=== PATIENT | female | born 2000 | race Caucasian/White ===

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

== ENCOUNTER 2021-02-03 20:50 | Outpatient (CLI) | payer OTHER ==
[2021-02-03] MEDS ORDERED: MAGNESIUM HYDROXIDE 2,400 MG/10 ML CUP PO PRN (21:03)
[2021-02-03] MEDS ORDERED: LACTATED RINGERS 1,000 ML IV ONE (21:15)
[2021-02-03 21:21] LABS: Basophils % (A) 0 %; Eosinophils # (A) 0.2 k/uL (0-0.7); Eosinophils % (A) 1 %; HGB 13.7 gm/dL (11.4-16.0); Lymphocytes # (A) 2.1 k/uL (1.0-4.8); Lymphocytes % (A) 13 %; MCH 29.5 pg (25.0-35.0); MCHC 36.2 g/dL (31.0-37.0); MCV 81.5 fL (80.0-100.0); Mean Platelet Volume 7.7; Monocytes # (A) 0.5 k/uL (0-1.0); Monocytes % (A) 3 %; Neutrophils # (A) 13.5 k/uL (1.3-7.7); Neutrophils % (A) 82 %; Platelet Count 297 k/uL (150-450); RBC 4.66 m/uL (3.80-5.40); RDW 13.4 % (11.5-15.5); WBC 16.4 k/uL (4.0-11.0)
[2021-02-03 21:32] LABS: ALT 13 U/L (4-34); AST 17 U/L (14-36); African American GFR (CKD) >90 (>60 ml/min/1.73 sqM); Anion Gap 13 mmol/L; Blood Urea Nitrogen 5 mg/dL (7-17); Carbon Dioxide 21 mmol/L (22-30); Chloride 101 mmol/L (98-107); Lipase 16 U/L (23-300); Non-African American GFR(CKD) >90 (>60 ml/min/1.73 sqM); Potassium 3.6 mmol/L (3.5-5.1); Sodium 135 mmol/L (137-145)
[2021-02-03 21:32] LABS: Appearance,Urine Cloudy (Clear); Bilirubin,Urine Negative (Negative); Blood,Urine Negative (Negative); Color,Urine Yellow; Glucose,Urine (UA) Negative (Negative); Ketones,Urine 3+ (Negative); Leukocyte Esterase,Urine Moderate (Negative); Mucus,Urine Moderate /hpf; Nitrite,Urine Negative (Negative); PH, Urine 6.5 (5.0-8.0); Protein,Urine Trace (Negative); RBC,Urine 2 /hpf (0-5); Specific Gravity,Urine 1.012 (1.001-1.035); Squamous Epithelial Cell,Urine 13 /hpf (0-4); Urobilinogen,Urine <2.0 mg/dL (<2.0); WBC,Urine 7 /hpf (0-5)
[2021-02-03 21:39] LABS: Amphetamine Screen,Urine Not Detected (NotDetected); Barbiturate Screen,Urine Not Detected (NotDetected); Benzodiazepines Screen,Urine Not Detected (NotDetected); Cocaine Screen,Urine Not Detected (NotDetected); Methadone Screen, Urine Not Detected (NotDetected); Opiate Screen,Urine Not Detected (NotDetected); Oxycodone Screen, Urine Not Detected (NotDetected); Phencyclidine Screen,Urine Not Detected (NotDetected); Tricyclic Antidepressant,Urine Not Detected (NotDetected); Urn Cannabinoid Scrn Detected (NotDetected)
[2021-02-03 22:14] VITALS: BP 116/58; PULSE 72; RESP 16; TEMP 98
--- NOTE | 2021-02-04 04:57 | P.MSEPDOC ---
Presenting Problems - Arrival Data Date of Arrival on Unit: 02/03/21 Time of Arrival on Unit: 20:50 Mode of Transport: Ambulatory - Complaint OB-Reason for Admission/Chief Complaint: Hyperemesis Medical History - Information : 1 Para: 0 Term: 0 : 0 Abortions: Spontaneous or Elective: 0 Number of Living Children: 0 - Gestational Age Gestational Age by NICOLE (wks/days): 14 Weeks and 1 Days - History Complications: Hx. Substance Abuse Comment: Daily THC use. Review of Systems - Review of Systems Constitutional: No problems Breast: No problems ENT: No problems Cardiovascular: No problems Respiratory: No problems Gastrointestinal: No problems Genitourinary: No problems Musculoskeletal: No problems Neurological: No problems Skin: No problems Vital Signs - Temperature Temperature: 98 F Temperature Source: Oral - Pulse Right Brachial Pulse Rate: 72 Pulse Assessment Method: Automatic Cuff - Respirations Respiratory Rate: 16 Oxygen Delivery Method: Room Air O2 Sat by Pulse Oximetry: 100 - Blood Pressure Right Arm Blood Pressure: 116/58 Blood Pressure Mean: 77 Blood Pressure Source: Automatic Cuff Medical Screen Scoring (Pre) - Cervical Exam Dilation: Exam Deferred Effacement: Exam Deferred Membranes: Intact - Uterine Contractions Frequency: N/A Duration: N/A Intensity: N/A - Maternal Vital Signs Maternal Temperature: N/A Maternal Blood Pressure: N/A Signs of Preeclampsia: N/A Maternal Respirations: N/A - Maternal Trauma Maternal Trauma: N/A - Assessment - Baby A Baseline FHR: 155 Heart Rate - NICHD Category: Category I (Normal) = 0 NST: Reactive Position: N/A Station: N/A - Total Score - Baby A Total Score - Baby A: 0 - Total Score - Baby B Total Score - Baby B: 0 - Total Score - Baby C Total Score - Baby C: 0 - Level of Risk - Baby A Level of Risk - Baby A: Low (0-5) - Level of Risk - Baby B Level of Risk - Baby B: Low (0-5) - Level of Risk - Baby C Level of Risk - Baby C: Low (0-5) Physician Notification (Pre) - Physician Notified Physician Notified Date: 02/03/21 Physician Notified Time: 21:57 New Order Received: Yes - Notification Comment Comment: Dr. Wray called and given pt lab results. Orders recieved to d/c pt to home. To educate pt to increase fluid intake and try pedialyte. Pt has apt next week with Dr. Wray. Disposition - Disposition OB Disposition: Discharge to home Discharge Date: 02/03/21 Discharge Time: 22:10 I agree with the RN Medical Screening Exam: Yes Case reviewed; plan agreed upon as documented in EMR&OBIX.: Yes Diagnosis: DEHYDRATION
== END 2021-02-03 22:10 | disposition home or self-care (01) ==
LOC: FBPOP 20:50
PROVIDERS: ATTEND Obstetrics & Gynecology
DX: O99.282 Endocrine, nutritional and metabolic diseases complicating pregnancy, second trimester (principal); E86.0 Dehydration; Z3A.14 14 weeks gestation of pregnancy
CPT/HCPCS: 80051; 82565; 83690; 84450; 84460; 84520; 85025; 81001; 80306; G0463; 96360; 99214

== ENCOUNTER → 2021-05-15 | Outpatient (CLI) | payer OTHER ==
[~2021-05-15] MED LIST changes: -DEXAMETHASONE SOD PHOSPHATE 10 MG/ML 1 ML VIAL IV ONE; -HEPARIN SODIUM,PORCINE 5,000 UNIT/ML 1 ML VIAL SQ ONE; -LIDOCAINE 1% 20 ML VIAL (10MG/ML) FOR IV START INTRADERMA PRN; -MIDAZOLAM 2 MG/2 ML VIAL IV PRN; -ONDANSETRON 4 MG/2 ML VIAL IVP ONE; +ONDANSETRON 4 MG/2 ML VIAL IVP STA; -fentaNYL (PF) 50 MCG/ML 2 ML AMP IV PRN
[2021-05-15 23:12] VITALS: BP 129/64; PULSE 75; RESP 16; TEMP 96.4
--- NOTE | 2021-05-16 06:45 | P.MSEPDOC ---
Presenting Problems - Arrival Data Date of Arrival on Unit: 05/15/21 Time of Arrival on Unit: 18:55 Mode of Transport: Ambulatory - Complaint OB-Reason for Admission/Chief Complaint: Hyperemesis Comment: Patient states she has a history of hyperemesis and has been prescribed zofran. and reglan by Dr. Wray to help combat it. Patient has been unable to tolerate food and beverages for the past three days. Medical History - Information : 1 Para: 0 Term: 0 : 0 Abortions: Spontaneous or Elective: 0 Number of Living Children: 0 - Gestational Age Gestational Age by NICOLE (wks/days): 28 Weeks and 4 Days Review of Systems - Review of Systems Constitutional: No problems Breast: No problems ENT: No problems Cardiovascular: No problems Respiratory: No problems Gastrointestinal: No problems Genitourinary: No problems Musculoskeletal: No problems Neurological: No problems Skin: No problems Vital Signs - Temperature Temperature: 96.4 F Temperature Source: Temporal Artery Scan - Pulse Right Brachial Pulse Rate: 75 Pulse Assessment Method: Automatic Cuff - Respirations Respiratory Rate: 16 Oxygen Delivery Method: Room Air O2 Sat by Pulse Oximetry: 98 - Blood Pressure Right Arm Blood Pressure: 129/64 Blood Pressure Mean: 85 Blood Pressure Source: Automatic Cuff Medical Screen Scoring - Assessment - Baby A Baseline FHR: 150 Heart Rate - NICHD Category: Category I (Normal) Physician Notification - Physician Notified Physician Notified Date: 05/15/21 Physician Notified Time: 19:35 Physician: Aguilar St - Notification Comment Comment: RN spoke with Dr. St. RN reported that patient had been unable to keep. food or beverage down for three days. Dr. St would like a liter bolus of LR and adose of IV given to patient. If patient tolerates and is feeling better, she may be discharged. Patient updated. Maternal Triage Index - Maternal Triage Index Presenting for scheduled procedure w/no complaint: No - Stat/Priority 1 Stat Priority 1: No - Urgent/Priority 2 Urgent Priority 2: No - Prompt/Priority 3 Prompt Priority 3: No - Non-Urgent/Priority 4 Non-Urgent Priority 4: Yes Criteria Met for Priority 4: Nausea and vomiting x3 days Disposition - Disposition OB Disposition: Discharge to home Discharge Date: 05/15/21 Discharge Time: 20:40 I agree with the RN Medical Screening Exam: Yes Case reviewed; plan agreed upon as documented in EMR&OBIX.: Yes Diagnosis: LATE VOMITING OF (Patient presents to labor and delivery with complaints of persistent nausea and vomiting. Patient's had this apparently on off throughout the and does come to labor and delivery occasionally for IV hydration and anti-medics. Patient is given some IV fluids and antibiotics and is feeling better and therefore discharged home.)
== END | disposition home or self-care (01) ==
LOC: FBPOP 18:55
PROVIDERS: ATTEND Obstetrics & Gynecology
DX: O21.2 Late vomiting of pregnancy (principal); Z3A.28 28 weeks gestation of pregnancy
CPT/HCPCS: 59025; 96361; 96374; 96375; G0463; J2405; 99214

== ENCOUNTER 2021-05-31 01:57 | Outpatient (CLI) | payer OTHER ==
[2021-05-31 03:01] VITALS: BP 115/59; PULSE 78; RESP 16; TEMP 96.7
--- NOTE | 2021-05-31 13:13 | P.MSEPDOC ---
Presenting Problems - Arrival Data Date of Arrival on Unit: 05/31/21 Time of Arrival on Unit: 02:00 Mode of Transport: Ambulatory - Complaint OB-Reason for Admission/Chief Complaint: Decreased Movement Comment: Patient presents with decreased movement, has not felt the baby move since earlier this am. Patient states she tried drinking cold water at home, but has not felt the baby move since. Medical History - Information : 1 Para: 0 Term: 0 : 0 Abortions: Spontaneous or Elective: 0 Number of Living Children: 0 - Gestational Age Gestational Age by NICOLE (wks/days): 30 Weeks and 6 Days - History Complications: Smoker, Hx. Substance Abuse Comment: THC use with the last time being this am Review of Systems - Review of Systems Constitutional: No problems Breast: No problems ENT: No problems Cardiovascular: No problems Respiratory: No problems Gastrointestinal: No problems Genitourinary: No problems Musculoskeletal: No problems Neurological: No problems Skin: No problems Vital Signs - Temperature Temperature: 96.7 F Temperature Source: Temporal Artery Scan - Pulse Pulse Oximetery Pulse Rate: 78 Pulse Assessment Method: Automatic Cuff - Respirations Respiratory Rate: 16 Oxygen Delivery Method: Room Air O2 Sat by Pulse Oximetry: 98 - Blood Pressure Sitting Blood Pressure: 115/59 Blood Pressure Mean: 77 Blood Pressure Source: Automatic Cuff Medical Screen Scoring - Cervical Exam Membranes: Intact - Uterine Contractions Resting: Soft to palpation - Assessment - Baby A Baseline FHR: 120 Heart Rate - NICHD Category: Category I (Normal) NST: Reactive Physician Notification - Physician Notified Physician Notified Date: 05/31/21 Physician Notified Time: 02:19 Physician: Bradly Palacios New Order Received: Yes - Notification Comment Comment: Orders to obtain a reactive NST, with a reactive NST okay to discharge home with instructions. Maternal Triage Index - Urgent/Priority 2 Urgent Priority 2: Yes Provider Notified: Bradly Palacios Provider Notified Time: 02:19 Criteria Met for Priority 2: Patient presents with decreased movement since earlier this am. States she tried drinking water at home, but has not felt her baby move all day. Patient states baby usually moves at night so this is not "normal" for her. Patient states she smokes THC with the last time being this am. Disposition - Disposition OB Disposition: Discharge to home, Written follow up instructions reviewed Discharge Date: 05/31/21 Discharge Time: 02:50 I agree with the RN Medical Screening Exam: Yes Case reviewed; plan agreed upon as documented in EMR&OBIX.: Yes Diagnosis: DECREASED MOVEMENTS, THIRD TRIMESTER, FETUS 1
== END 2021-05-31 02:50 | disposition home or self-care (01) ==
LOC: FBPOP 01:57
PROVIDERS: ATTEND Obstetrics & Gynecology
DX: O36.8130 Decreased fetal movements, third trimester, not applicable or unspecified (principal); Z3A.30 30 weeks gestation of pregnancy
CPT/HCPCS: 59025; G0463; 99213

== ENCOUNTER 2021-06-14 19:51 | Outpatient (CLI) | payer OTHER ==
[2021-06-14] MEDS: LACTATED RINGERS 1,000 ML IV SCH ×3 (20:26→22:52)
[2021-06-14] MEDS ORDERED: FAMOTIDINE 20 MG/2 ML VIAL IV SCH (20:30)
[2021-06-14] MEDS ORDERED: LACTATED RINGERS 1,000 ML IV SCH (20:45)
[2021-06-14 20:47] LABS: Basophils # (A) 0.1 k/uL (0-0.2); Basophils % (A) 0 %; Eosinophils # (A) 0.1 k/uL (0-0.7); Eosinophils % (A) 0 %; HCT 38.9 % (34.0-46.0); Lymphocytes # (A) 2.5 k/uL (1.0-4.8); Lymphocytes % (A) 12 %; MCH 26.8 pg (25.0-35.0); MCHC 33.4 g/dL (31.0-37.0); MCV 80.4 fL (80.0-100.0); Mean Platelet Volume 8.9; Monocytes # (A) 0.7 k/uL (0-1.0); Monocytes % (A) 3 %; Neutrophils # (A) 16.5 k/uL (1.3-7.7); Neutrophils % (A) 83 %; Platelet Count 346 k/uL (150-450); RBC 4.84 m/uL (3.80-5.40); RDW 15.1 % (11.5-15.5)
[2021-06-14 21:01] LABS: ALT 21 U/L (4-34); AST 27 U/L (14-36); African American GFR (CKD) >90 (>60 ml/min/1.73 sqM); Blood Urea Nitrogen 6 mg/dL (7-17); LDH 608 U/L (313-618); Non-African American GFR(CKD) >90 (>60 ml/min/1.73 sqM)
[2021-06-14 21:21] LABS: INR 0.9 (<1.2); Partial Thromboplastin Time 24.3 sec (22.0-30.0); Prothrombin Time 9.8 sec (9.0-12.0)
[2021-06-14 21:59] LABS: Appearance,Urine Cloudy (Clear); Bacteria,Urine Rare /hpf; Bilirubin,Urine Negative (Negative); Blood,Urine Negative (Negative); Color,Urine Yellow; Creatinine,Urine Random 81.1 mg/dL; Glucose,Urine (UA) Negative (Negative); Hyaline Casts,Urine 4 /lpf (0-2); Ketones,Urine 4+ (Negative); Leukocyte Esterase,Urine Moderate (Negative); Mucus,Urine Occasional /hpf; Nitrite,Urine Negative (Negative); Protein,Urine 1+ (Negative); Protein/Creatinine Ratio,Urine 0.21; RBC,Urine 9 /hpf (0-5); Specific Gravity,Urine 1.016 (1.001-1.035); Squamous Epithelial Cell,Urine 4 /hpf (0-4); Urobilinogen,Urine <2.0 mg/dL (<2.0); WBC,Urine 9 /hpf (0-5)
[2021-06-14 22:02] LABS: Creatinine,Urine Random 82.1 mg/dL
[2021-06-14] MEDS ORDERED: diphenhydrAMINE 50 MG/ML 1 ML VIAL IVP PRN (22:28)
[2021-06-14] MEDS ORDERED: PROMETHAZINE INJ 12.5 MG in SODIUM CHLORIDE 0.9% 50 ML IVPB ONE (22:45)
[2021-06-15 00:32] VITALS: BP 141/65; PULSE 86; RESP 20; TEMP 96.8
--- NOTE | 2021-06-15 07:47 | P.MSEPDOC ---
Presenting Problems - Arrival Data Date of Arrival on Unit: 06/14/21 Time of Arrival on Unit: 19:51 Mode of Transport: Wheelchair - Complaint OB-Reason for Admission/Chief Complaint: Hyperemesis, Acute Nausea/Vomiting, PIH, Dizziness Comment: pt. presents to triage due to hyperemesis, fatgiue, ABD cramping and upper. epigastric pain/chest heartburn pain rating 10/10, patient states she has been vomiting all day since 0430am and has not stopped. patient states dizzyness and blurred vision as well. Medical History - Information : 1 Para: 0 Term: 0 : 0 Abortions: Spontaneous or Elective: 0 Number of Living Children: 0 - Gestational Age Gestational Age by NICOLE (wks/days): 33 Weeks and 0 Days - History Complications: Smoker Comment: patient smokes THC, and cigerettes Review of Systems - Review of Systems Constitutional: Fatigue Breast: No problems ENT: No problems Cardiovascular: No problems Respiratory: Wheezing Gastrointestinal: No problems Genitourinary: No problems Musculoskeletal: No problems Neurological: Dizziness Skin: No problems Vital Signs - Temperature Temperature: 96.8 F Temperature Source: Temporal Artery Scan - Pulse Pulse Oximetery Pulse Rate: 86 Pulse Assessment Method: Automatic Cuff - Respirations Respiratory Rate: 20 Oxygen Delivery Method: Room Air O2 Sat by Pulse Oximetry: 99 - Blood Pressure Left Arm Blood Pressure: 141/65 Blood Pressure Mean: 90 Blood Pressure Source: Automatic Cuff Medical Screen Scoring - Cervical Exam Membranes: Intact - Uterine Contractions Frequency From (mins): 3 Frequency To (mins): 4 Duration From (seconds): 50 Duration To (seconds): 60 Intensity: Mild Resting: Soft to palpation - Assessment - Baby A Baseline FHR: 140 Heart Rate - NICHD Category: Category I (Normal) NST: Reactive Maternal Triage Index - Maternal Triage Index Presenting for scheduled procedure w/no complaint: No - Stat/Priority 1 Stat Priority 1: Yes Provider Notified: Dr. Wray Provider Notified Time: 20:21 Criteria Met for Priority 1: orders to start IV fluids, PIH workup, and administer pepcid 20mg IV push, vomiting and heartburn continue labs reviewed with Dr. Wray, patient on 2 bag of fluids orders for benadryl 25mg IV push, and phenergan 12.5mg IVPB and another liter of fluid. vomiting dimninished, patient was able to rest nausea decreased a little and heartburn still present, patient states she would like to go home to rest. orders to discharge patient home Disposition - Disposition OB Disposition: Discharge to home Discharge Date: 06/15/21 Discharge Time: 00:15 I agree with the RN Medical Screening Exam: Yes Case reviewed; plan agreed upon as documented in EMR&OBIX.: Yes Diagnosis: VOMITING OF , UNSPECIFIED
== END 2021-06-15 00:15 | disposition home or self-care (01) ==
LOC: FBPOP 19:51
PROVIDERS: ATTEND Obstetrics & Gynecology
DX: O21.2 Late vomiting of pregnancy (principal); Z3A.33 33 weeks gestation of pregnancy
CPT/HCPCS: 59025; 96360; 96361; 96366; 96375; 82570; 84156; 82565; 83615; 84450; 84460; 84520; 84550; 85025; 85384; 85610; 85730; 81001; G0463; J1200; J2550; 99215

== ENCOUNTER 2021-06-26 23:34 | Outpatient (CLI) | payer OTHER ==
[2021-06-27 00:39] VITALS: BP 129/74; PULSE 71; RESP 16; TEMP 97
--- NOTE | 2021-07-01 07:46 | P.MSEPDOC ---
Presenting Problems - Arrival Data Date of Arrival on Unit: 06/26/21 Time of Arrival on Unit: 23:34 Mode of Transport: Ambulatory - Complaint OB-Reason for Admission/Chief Complaint: Decreased Movement Medical History - Information : 1 Para: 0 Term: 0 : 0 Abortions: Spontaneous or Elective: 0 Number of Living Children: 0 - Gestational Age Gestational Age by NICOLE (wks/days): 34 Weeks and 5 Days Review of Systems - Review of Systems Constitutional: No problems Breast: No problems ENT: No problems Cardiovascular: No problems Respiratory: No problems Gastrointestinal: No problems Genitourinary: No problems Musculoskeletal: No problems Neurological: No problems Skin: No problems Vital Signs - Temperature Temperature: 97.0 F Temperature Source: Temporal Artery Scan - Pulse Right Pulse Rate: 71 Pulse Assessment Method: Automatic Cuff - Respirations Respiratory Rate: 16 Oxygen Delivery Method: Room Air O2 Sat by Pulse Oximetry: 98 - Blood Pressure Right Arm Blood Pressure: 129/74 Blood Pressure Mean: 92 Blood Pressure Source: Automatic Cuff Physician Notification - Physician Notified Physician Notified Date: 06/27/21 Physician Notified Time: 00:15 Physician: Bradly Palacios Order Received: Yes - Notification Comment Comment: called notified pts reason for visit decreased movement. baby. very active nst reactive 30 min with cat 1 fht. discharge order received Maternal Triage Index - Maternal Triage Index Presenting for scheduled procedure w/no complaint: No - Stat/Priority 1 Stat Priority 1: No - Urgent/Priority 2 Urgent Priority 2: Yes Provider Notified: Dr Palacios Provider Notified Time: 00:15 Criteria Met for Priority 2: decreased mvt Disposition - Disposition OB Disposition: Discharge to home Discharge Date: 06/27/21 Discharge Time: 00:30 I agree with the RN Medical Screening Exam: Yes Case reviewed; plan agreed upon as documented in EMR&OBIX.: Yes Diagnosis: DECREASED MOVEMENTS, THIRD TRIMESTER, FETUS 1
== END 2021-06-27 00:30 | disposition home or self-care (01) ==
LOC: FBPOP 23:34
PROVIDERS: ATTEND Obstetrics & Gynecology
DX: O36.8131 Decreased fetal movements, third trimester, fetus 1 (principal); Z3A.34 34 weeks gestation of pregnancy
CPT/HCPCS: 59025; G0463; 99213

== ENCOUNTER 2021-07-08 13:34 | Inpatient (IN) | payer OTHER ==
[~2021-07-08 13:34] MED LIST changes: -LACTATED RINGERS 1,000 ML IV SCH; -ONDANSETRON 4 MG/2 ML VIAL IVP STA; +ROPIVACAINE 5MG/ML 20ML VIAL ONE; +SODIUM CHLORIDE 0.9% 100 ML BAG ONE; +fentaNYL (PF) 50 MCG/ML 5 ML AMP ONE
[2021-07-08] MEDS ORDERED: ONDANSETRON 4 MG/2 ML VIAL IM STA (14:12)
[2021-07-08] MEDS: LACTATED RINGERS 500 ML IV SCH (14:27)
[2021-07-08] MEDS ORDERED: ONDANSETRON 4 MG/2 ML VIAL IVP STA (14:33)
[2021-07-08 15:32] LABS: Basophils % (A) 0 %; Eosinophils % (A) 0 %; HCT 36.7 % (34.0-46.0); HGB 12.4 gm/dL (11.4-16.0); Lymphocytes % (A) 18 %; MCH 26.4 pg (25.0-35.0); MCHC 33.7 g/dL (31.0-37.0); MCV 78.3 fL (80.0-100.0); Mean Platelet Volume 9.3; Monocytes # (A) 0.8 k/uL (0-1.0); Monocytes % (A) 5 %; Neutrophils # (A) 13.1 k/uL (1.3-7.7); Neutrophils % (A) 77 %; Platelet Count 367 k/uL (150-450); RBC 4.68 m/uL (3.80-5.40); RDW 13.7 % (11.5-15.5); WBC 17.1 k/uL (4.0-11.0)
[2021-07-08 15:37] LABS: ALT 17 U/L (4-34); AST 34 U/L (14-36); African American GFR (CKD) >90 (>60 ml/min/1.73 sqM); Blood Urea Nitrogen 6 mg/dL (7-17); LDH 543 U/L (313-618); Non-African American GFR(CKD) >90 (>60 ml/min/1.73 sqM)
[2021-07-08 15:52] LABS: Appearance,Urine Clear (Clear); Bacteria,Urine Rare /hpf; Bilirubin,Urine Negative (Negative); Blood,Urine Negative (Negative); Color,Urine Yellow; Glucose,Urine (UA) Negative (Negative); Ketones,Urine 4+ (Negative); Leukocyte Esterase,Urine Small (Negative); Mucus,Urine Occasional /hpf; Nitrite,Urine Negative (Negative); PH, Urine 7.5 (5.0-8.0); Protein,Urine Trace (Negative); RBC,Urine 1 /hpf (0-5); Specific Gravity,Urine 1.013 (1.001-1.035); Squamous Epithelial Cell,Urine 2 /hpf (0-4); Urobilinogen,Urine <2.0 mg/dL (<2.0); WBC,Urine 5 /hpf (0-5)
[2021-07-08] MEDS ORDERED: FAMOTIDINE 20 MG/2 ML VIAL IV ONE (16:26)
[2021-07-08] MEDS: LACTATED RINGERS 1,000 ML IV SCH (16:46)
[2021-07-08 17:14] LABS: Creatinine,Urine Random 121.8 mg/dL; Protein/Creatinine Ratio,Urine 0.115
[2021-07-08 17:15] LABS: Creatinine,Urine Random 120.3 mg/dL
--- NOTE | 2021-07-08 17:38 | P.HPOB ---
History of Present Illness H&P Date: 07/08/21 Chief Complaint: Chronic nausea vomiting, worse today This patient is a 21-year-old 1 para 0 female estimated date of confinement 08/03/2021 estimated gestational age 36-2/7 weeks who presented to labor and delivery this afternoon with complaints of worsening nausea and vomiting. This apparently has been going on for the entire duration of the and she has been diagnosed with cannabinoid hyperemesis syndrome. She has been followed by Dr. Wray and maternal- medicine. Patient states that she presented to labor and delivery today because the vomiting was worse. Patient was here on June 14 and had elevated blood pressures at that time of 143/102 and 141/65. Preeclampsia labs at that time were negative and this was thought to be secondary to her vomiting because blood pressures appeared to be elevated when she was having these episodes. Patient's initial blood pressure on admission here was 178/102, again this was occurring while she was very anxious and vomiting. Subsequent blood pressures have come down to 136/85 and 140/94. I did repeat her preeclampsia labs which are negative. She also has 4+ ketones. Review of Systems Constitutional: Reports as per HPI Gastrointestinal: Reports as per HPI, Reports nausea, Reports vomiting Genitourinary: Reports Menstruation: Reports amenorrhea Psychiatric: Reports anxiety, Reports depression Past Medical History Past Medical History: GERD/Reflux Additional Past Medical History / Comment(s): Abd pain, severe gastritis, cannabinoid hyperemesis syndrome History of Any Multi-Drug Resistant Organisms: None Reported Past Surgical History: Cholecystectomy Additional Past Surgical History / Comment(s): wisdom teeth removed, zoraida in august of 2018 Past Anesthesia/Blood Transfusion Reactions: No Reported Reaction Past Psychological History: Anxiety, Depression Smoking Status: Current every day smoker Past Alcohol Use History: Occasional Additional Past Alcohol Use History / Comment(s): Smokes half to 1 ppd Past Drug Use History: Marijuana Additional Drug Use History / Comment(s): Daily heavy marijuiana use - Past Family History Mother Family Medical History: Asthma Medications and Allergies Home Medications Medication Instructions Recorded Confirmed Type ondansetron HCL [Zofran] 4 mg PO DAILY PRN MDD 8 mg 01/05/19 07/08/21 History Omeprazole 1 tab PO BID 05/15/21 07/08/21 History Pnv No.95/Ferrous Fum/Folic AC 1 each PO DAILY 05/31/21 07/08/21 History [ Multivitamin Tablet] Citalopram Hydrobromide [CeleXA] 1 tab PO DAILY 06/14/21 07/08/21 History Allergies Allergy/AdvReac Type Severity Reaction Status Date / Time cats Allergy runny Uncoded 07/08/21 13:56 nose, congestion, itching dust Allergy sneezing, Uncoded 07/08/21 13:56 rash mold Allergy congested, Uncoded 07/08/21 13:56 itchy, stuffy Exam Vital Signs Temp Pulse Resp BP 07/08/21 17:08 98.1 F 86 16 140/94 Intake and Output 07/08/21 07/08/21 07/08/21 06:59 14:59 22:59 Other: Weight 81.647 kg 81.647 kg - OBG Physical Exam Abdomen: bowel sounds normal, no diffuse tenderness, no bruit present, no guar ding noted, no hepatomegaly, no splenomegaly, no mass Cervix: no lesion (1 cm dilated thick and -3 per RN), no discharge Uterus: enlarged Results Result Diagrams: 07/08/21 14:25 07/08/21 15:10 Abnormal Lab Results - Last 24 Hours (Table) 07/08/21 07/08/21 07/08/21 Range/Units 14:25 15:05 15:05 WBC 17.1 H (4.0-11.0) k/uL MCV 78.3 L (80.0-100.0) fL Neutrophils # 13.1 H (1.3-7.7) k/uL BUN (7-17) mg/dL Creatinine (0.52-1.04) mg/dL Urine Protein Trace H (Negative) Urine Ketones 4+ H (Negative) Ur Leukocyte Esterase Small H (Negative) Urine Bacteria Rare H (None) /hpf Urine Mucus Occasional H (None) /hpf U Random Total Protein 15 H (<12) mg/dL 07/08/21 Range/Units 15:10 WBC (4.0-11.0) k/uL MCV (80.0-100.0) fL Neutrophils # (1.3-7.7) k/uL BUN 6 L (7-17) mg/dL Creatinine 0.41 L (0.52-1.04) mg/dL Urine Protein (Negative) Urine Ketones (Negative) Ur Leukocyte Esterase (Negative) Urine Bacteria (None) /hpf Urine Mucus (None) /hpf U Random Total Protein (<12) mg/dL Assessment and Plan Assessment: This is a 21-year-old 1 para 0 female 36-2/7 weeks gestation omitted to labor and delivery with intractable nausea vomiting, history of cannabinoid hyperemesis syndrome, dehydration, and gestational hypertension. At this point there is no evidence of preeclampsia. heart tones are category 1. Patient does get significant blood pressure elevations when she is throwing up, however her blood pressures otherwise are also elevated on 2 separate occasions. Plan at this time is to admit for IV hydration, anti-emetics, and close observation. Given the patient's gestational hypertension she very well may need to proceed with delivery at 37 weeks. For this reason I'm going to go ahead and start [place] because she may need to be delivered earlier if she has continued significant blood pressure elevations. I discussed this plan with the patient and her significant other. Patient is insistent on showering and I have agreed since the baby looks fine to allow her to shower for approximately 15 minutes per shift. This appears to be related to her cannabinoid syndrome and anxiety. (1) 36 to 37 weeks gestation of Current Visit: Yes Status: Acute Code(s): REE8455 - SNOMED Code(s): 698910756 (2) Cannabinoid hyperemesis syndrome Current Visit: No Status: Acute Code(s): F12.988 - CANNABIS USE, UNSP WITH OTHER CANNABIS-INDUCED DISORDER SNOMED Code(s): 609666922 (3) Intractable vomiting Current Visit: No Status: Acute Code(s): R11.10 - VOMITING, UNSPECIFIED SNOMED Code(s): 498911476 (4) Gestational hypertension Current Visit: Yes Status: Acute Code(s): O13.9 - GESTATIONAL HTN W/O SIGNIFICANT PROTEINURIA, UNSP TRIMESTER SNOMED Code(s): 16977732
[2021-07-08] MEDS: BETAMET ACET-BETAMETH SOD PHOS 6 MG/ML MDV IM SCH (17:41)
[2021-07-09] MEDS ORDERED: diphenhydrAMINE 50 MG/ML 1 ML VIAL IVP STA (02:44)
[2021-07-09] MEDS: FAMOTIDINE 20 MG/2 ML VIAL IV SCH ×2 (05:12→21:06)
--- NOTE | 2021-07-09 06:43 | P.MSEPDOC ---
Presenting Problems - Arrival Data Date of Arrival on Unit: 07/08/21 Time of Arrival on Unit: 13:45 Mode of Transport: Ambulatory - Complaint OB-Reason for Admission/Chief Complaint: Other Comment: pt here with c/o emesis since last night, pt unable to take prescribed zofran. due to vomitting, pt reports + tobacco and marijuna smoker, reports last marijuana use 2. hours ago, denies complications with , reports + fm, denies. lof/vb/contractions, abd soft and non tender Medical History - Information : 1 Para: 0 Term: 0 : 0 Abortions: Spontaneous or Elective: 0 Number of Living Children: 0 - Gestational Age Gestational Age by NICOLE (wks/days): 36 Weeks and 2 Days - History Complications: Smoker, Hx. Substance Abuse Comment: cannabinoid hyperemesis syndrome Review of Systems - Review of Systems Constitutional: No problems Breast: No problems ENT: No problems Cardiovascular: No problems Respiratory: No problems Gastrointestinal: Pain Genitourinary: No problems Musculoskeletal: No problems Neurological: No problems Skin: No problems Vital Signs - Temperature Temperature: 98.1 F Temperature Source: Oral - Pulse Right Brachial Pulse Rate: 80 Pulse Assessment Method: Automatic Cuff - Respirations Respiratory Rate: 17 Oxygen Delivery Method: Room Air - Blood Pressure Right Arm Blood Pressure: 153/78 Blood Pressure Mean: 103 Blood Pressure Source: Automatic Cuff Medical Screen Scoring - Cervical Exam Dilation (cm): 1 Effacement (%): 50 Station: -3 Membranes: Intact - Assessment - Baby A Baseline FHR: 125 Heart Rate - NICHD Category: Category I (Normal) NST: Reactive Physician Notification - Physician Notified Physician Notified Date: 07/08/21 Physician Notified Time: 16:20 Physician: Aguilar St New Order Received: Yes (admit for OBV) Maternal Triage Index - Urgent/Priority 2 Urgent Priority 2: Yes Provider Notified: [address]ilar [address] Provider Notified Time: 16:20 Criteria Met for Priority 2: elevated bps, cont abd pain Disposition - Disposition OB Disposition: Admit I agree with the RN Medical Screening Exam: Yes Case reviewed; plan agreed upon as documented in EMR&OBIX.: Yes Diagnosis: GESTATIONAL HTN W/O SIGNIFICANT PROTEINURIA, THIRD TRIMESTER
[2021-07-09] MEDS ORDERED: TERBUTALINE 1 MG/ML VIAL SQ PRN (07:52)
[2021-07-09] MEDS ORDERED: METHYLERGONOVINE 0.2 MG/ML 1 ML AMP IM PRN (07:52)
[2021-07-09] MEDS ORDERED: OXYTOCIN 10 UNIT/ML 1 ML VIAL IM PRN (07:52)
[2021-07-09] MEDS ORDERED: CARBOPROST TROMETHAMINE 250 MCG/ML 1 ML AMP IM PRN (07:52)
[2021-07-09] MEDS ORDERED: LIDOCAINE 0.5% (PF) 5 MG/ML (50 ML SDV) SQ PRN (07:52)
[2021-07-09] MEDS ORDERED: BUTORPHANOL 1 MG/ML 1 ML VIAL IV PRN (07:53)
--- NOTE | 2021-07-09 07:56 | P.PN ---
Progress Note - Text Progress Note Date: 07/09/21 Pt seen and examined. Her N/V is not improving with antiemetics and antacids. She is complaining of heart burn and intractable nausea and vomitting. Her BPs are remaining elevated. Her cervix is 3/80/0 and she is river irregularly. heart tones category 1. We had a long discussion about her gestational hypertension. She is 36.3 right now. Due to her intractable N/V I do not see a reason to wait 4 days to deliver her at 37 weeks. I will begin her induction today. R/B/A of induction as well as delivery of an infant at 36 weeks were all discussed and through shared decision making, we came to the conclusion to deliver her.
[2021-07-09] MEDS ORDERED: OXYTOCIN 30 UNITS/500 ML NS 30 UNIT in SALINE 1 500ML.BAG IV SCH ×2 (08:00→18:00)
[2021-07-09] MEDS: LACTATED RINGERS 1,000 ML IV SCH ×5 (08:14→18:06)
[2021-07-09] MEDS: CITALOPRAM HYDROBROMIDE 20 MG TAB PO SCH (08:14)
[2021-07-09] MEDS ORDERED: ONDANSETRON 4 MG/2 ML VIAL IVP STA (09:48)
[2021-07-09] MEDS ORDERED: CITRIC ACID-SODIUM CITRATE 15 ML CUP PO ONE (12:49)
[2021-07-09] MEDS ORDERED: diphenhydrAMINE 25 MG CAP PO PRN (17:54)
[2021-07-09] MEDS ORDERED: BENZOCAINE/MENTHOL SPRAY 1 GM/SPRAY AEROSOL TOPICAL PRN (17:54)
[2021-07-09] MEDS ORDERED: LANOLIN CREAM 5 GM TUBE TOPICAL PRN (17:54)
[2021-07-09] MEDS ORDERED: diphenhydrAMINE 50 MG/ML 1 ML VIAL IVP PRN ×2 (17:54)
[2021-07-09] MEDS ORDERED: ACETAMINOPHEN TAB 325 MG TAB PO PRN (17:54)
[2021-07-09] MEDS ORDERED: ZOLPIDEM 5 MG TAB PO PRN (17:54)
[2021-07-09] MEDS ORDERED: SIMETHICONE 80 MG CHEWABLE PO PRN (17:54)
[2021-07-09] MEDS ORDERED: HYDROCORTISONE 2.5% RECTAL CREAM 30 GM TUBE RECTAL PRN (17:54)
--- NOTE | 2021-07-09 18:01 | P.PROBDLV ---
Vaginal Delivery Note - . Vaginal Delivery Note: 21-year-old presented at 36 weeks and 2 days complaining of nausea and vomiting and acid reflux. She has a history of cannabinoid hyperemesis syndrome and has been vomiting on-and-off throughout the . She was told several times to stop cannabis use and I don't believe she has. Her blood pressure was also elevated a few times upon presentation. Preeclampsia labs were normal so she was diagnosed with station of hypertension. With her intractable nausea vomiting and the gestational hypertension, with shared decision-making made the decision to induce labor. Her cervix was 3 centers dilated, 90% effaced, and 0 station. heart tones were 140 with moderate variability and reactive. Amniotomy was performed at 8:04 AM clear fluid was noted and Pitocin was started. When she was uncomfortable she did get an epidural. Her cervix is completely dilated at 1726. She pushed, delivered a viable female over intact perineum under epidural anesthesia at 1731. Head delivered OA, anterior shoulder delivered gentle downward guidance of a posterior shoulder and rest of body. Nose and mouth bulb suctioned, cord clamped and cut, placed mother's abdomen. Apgars 8, 9, weight 5 lbs. 8 oz. Placenta delivered spontaneously, intact with three-vessel cord at 1733. Vagina, cervix, and perineum were inspected. First-degree bilateral lacerations were repaired with 3-0 Vicryl. Estimated blood loss 200 mL. Mother and baby in stable condition.
[2021-07-09] MEDS: BETAMET ACET-BETAMETH SOD PHOS 6 MG/ML MDV IM SCH (18:07)
[2021-07-09 18:24] VITALS: RESP 16
[2021-07-09] MEDS: IBUPROFEN 600 MG TAB PO PRN (20:02)
[2021-07-09] MEDS: diphenhydrAMINE 50 MG CAP PO PRN (20:43)
[2021-07-09] MEDS: SENNOSIDES-DOCUSATE SODIUM 1 EACH TAB PO SCH (21:06)
[2021-07-10] MEDS: IBUPROFEN 600 MG TAB PO PRN ×2 (04:20→20:17)
[2021-07-10 04:25] LABS: Basophils % (A) 0 %; Eosinophils # (A) 0.1 k/uL (0-0.7); Eosinophils % (A) 1 %; HGB 10.4 gm/dL (11.4-16.0); Lymphocytes # (A) 3.3 k/uL (1.0-4.8); Lymphocytes % (A) 17 %; MCH 26.5 pg (25.0-35.0); MCHC 33.7 g/dL (31.0-37.0); MCV 78.6 fL (80.0-100.0); Mean Platelet Volume 8.4; Monocytes # (A) 1.3 k/uL (0-1.0); Monocytes % (A) 7 %; Neutrophils # (A) 14.3 k/uL (1.3-7.7); Neutrophils % (A) 74 %; Platelet Count 285 k/uL (150-450); RBC 3.94 m/uL (3.80-5.40); RDW 13.7 % (11.5-15.5); WBC 19.3 k/uL (4.0-11.0)
[2021-07-10] MEDS: diphenhydrAMINE 50 MG CAP PO PRN (05:32)
[2021-07-10] MEDS: FAMOTIDINE 20 MG/2 ML VIAL IV SCH ×2 (05:38→16:27)
--- NOTE | 2021-07-10 07:16 | P.PNOBGVD ---
Subjective - Subjective Principal diagnosis: Status post normal vaginal delivery day #1 Interval history: Patient seen and examined. She did have 1 panic attack this morning after starting to feel some acid reflux. She denies headache, chest pain, shortness of breath or any calf pain. Patient reports: Reports appetite normal, Reports voiding normally, Reports pain well controlled, Reports ambulating normally [place]: doing well Objective - Latest Vital Signs Latest vital signs: Vital Signs Temp Pulse Resp BP 07/10/21 04:00 98.0 F 76 16 149/87 07/10/21 00:00 98.7 F 77 16 133/87 07/09/21 19:38 98.2 F 82 16 136/83 07/09/21 19:08 79 16 136/85 07/09/21 18:38 98.0 F 70 16 147/65 07/09/21 18:23 97.8 F 77 16 141/65 07/09/21 18:08 97.1 F L 81 16 151/75 07/09/21 17:53 101 H 16 158/80 07/09/21 17:38 97.7 F 86 16 149/77 Intake and Output 07/09/21 07/10/21 07/10/21 22:59 06:59 14:59 Intake Total 175.417 Balance 175.417 Intake: Intake, IV Titration 175.417 Amount Oxytocin 30 Units/500 ml 175.417 Ns 30 unit In Saline 1 500ml.bag @ Per Protocol IV .Q0M [facility] Rx#:[id number] Other: # Voids 1 1 - Exam Lungs: bilateral: normal Chest: Normal S1, Normal S2 Extremities: Present: normal Abdomen: Present: normal appearance, soft Uterus: Present: normal, firm - Labs Labs: Abnormal Lab Results - Last 24 Hours (Table) 07/10/21 Range/Units 03:56 WBC 19.3 H (4.0-11.0) k/uL Hgb 10.4 L (11.4-16.0) gm/dL Hct 31.0 L (34.0-46.0) % MCV 78.6 L (80.0-100.0) fL Neutrophils # 14.3 H (1.3-7.7) k/uL Monocytes # 1.3 H (0-1.0) k/uL Assessment and Plan (1) Status post normal vaginal delivery Current Visit: Yes Status: Acute Code(s): RZX0589 - SNOMED Code(s): 045586274 (2) Cannabinoid hyperemesis syndrome Current Visit: No Status: Acute Code(s): F12.988 - CANNABIS USE, UNSP WITH OTHER CANNABIS-INDUCED DISORDER SNOMED Code(s): 717376546 (3) Gestational hypertension Current Visit: Yes Status: Acute Code(s): O13.9 - GESTATIONAL HTN W/O SIGNIFICANT PROTEINURIA, UNSP TRIMESTER SNOMED Code(s): 97689959 Plan: 1. Continue to monitor blood pressure 2. Continue care 3. Continue omeprazole 40 mg twice a day and her Celexa 20 mg daily
[2021-07-10] MEDS: PANTOPRAZOLE 40 MG TABLET PO SCH ×2 (07:46→20:17)
[2021-07-10] MEDS: SENNOSIDES-DOCUSATE SODIUM 1 EACH TAB PO SCH ×2 (07:46→20:17)
[2021-07-10] MEDS: CITALOPRAM HYDROBROMIDE 20 MG TAB PO SCH (10:32)
[2021-07-10] MEDS: LACTATED RINGERS 500 ML IV SCH ×2 (22:21→22:22)
--- NOTE | 2021-07-11 07:46 | P.DS ---
Providers Date of admission: 07/09/21 07:52 Expected date of discharge: 07/11/21 Attending physician: Tiana Wray Primary care physician: Stated None - Discharge Diagnosis(es) (1) Status post normal vaginal delivery Current Visit: Yes Status: Acute (2) Cannabinoid hyperemesis syndrome Current Visit: No Status: Acute (3) Gestational hypertension Current Visit: Yes Status: Acute Hospital Course: Patient presented at 36 weeks and 2 days with contractile nausea vomiting and acid reflux. She has a has anxiety. She underwent a induction of labor with normal vaginal delivery for gestational hypertension. she did have a couple anxiety episodes but this was controlled after she took her omeprazole and was restarted on her Celexa. She will be discharged home day #2 in stable condition to follow-up with me in 6 weeks. Plan - Discharge Summary New Discharge Prescriptions: New Acetaminophen Tab [Tylenol] 650 mg PO Q4HR PRN tab PRN Reason: Mild Pain Or Fever >= 100.5 Citalopram Hydrobromide [CeleXA] 20 mg PO DAILY tab Ibuprofen [Motrin] 600 mg PO Q6HR PRN #30 tab PRN Reason: Mild Pain (Scale 1 To 3) Continue Omeprazole 1 tab PO BID No Action ondansetron HCL [Zofran] 4 mg PO DAILY PRN MDD 8 mg PRN Reason: Nausea Pnv No.95/Ferrous Fum/Folic AC [ Multivitamin Tablet] 1 each PO DAILY Citalopram Hydrobromide [CeleXA] 1 tab PO DAILY Discharge Medication List ondansetron HCL [Zofran] 4 mg PO DAILY PRN MDD 8 mg 01/05/19 [History] Omeprazole 1 tab PO BID 05/15/21 [History] Pnv No.95/Ferrous Fum/Folic AC [ Multivitamin Tablet] 1 each PO DAILY 05/31/21 [History] Citalopram Hydrobromide [CeleXA] 1 tab PO DAILY 06/14/21 [History] Acetaminophen Tab [Tylenol] 650 mg PO Q4HR PRN tab 07/11/21 [Rx] Citalopram Hydrobromide [CeleXA] 20 mg PO DAILY tab 07/11/21 [Rx] Ibuprofen [Motrin] 600 mg PO Q6HR PRN #30 tab 07/11/21 [Rx] Follow up Appointment(s)/Referral(s): Tiana Wray DO [Doctor of Osteopathic Medicine] - 08/18/21 11:15 am Discharge Disposition: HOME SELF-CARE
[2021-07-11] MEDS: IBUPROFEN 600 MG TAB PO PRN (08:43)
[2021-07-11] MEDS: CITALOPRAM HYDROBROMIDE 20 MG TAB PO SCH (08:44)
[2021-07-11] MEDS: PANTOPRAZOLE 40 MG TABLET PO SCH (08:44)
[2021-07-11 16:08] VITALS: BP 132/86; PULSE 52; TEMP 98.6
== END 2021-07-11 19:22 | disposition home or self-care (01) | DRG 807 ==
LOC: FBPOP 13:34 → 4FBP 16:39 → OBSVTOIN 07-09 07:52
PROVIDERS: ADMIT Obstetrics & Gynecology; ATTEND Obstetrics & Gynecology
PROC: 10E0XZZ Delivery of Products of Conception, External Approach (ICD-10-PCS; principal; 2021-07-09)
PROC: 0HQ9XZZ Repair Perineum Skin, External Approach (ICD-10-PCS; 2021-07-09)
PROC: 3E033VJ Introduction of Other Hormone into Peripheral Vein, Percutaneous Approach (ICD-10-PCS; 2021-07-09)
PROC: 10907ZC Drainage of Amniotic Fluid, Therapeutic from Products of Conception, Via Natural or Artificial Opening (ICD-10-PCS; 2021-07-09)
DX: O99.324 Drug use complicating childbirth (principal); Z37.0 Single live birth; R11.2 Nausea with vomiting, unspecified; F12.90 Cannabis use, unspecified, uncomplicated; O99.344 Other mental disorders complicating childbirth; O99.62 Diseases of the digestive system complicating childbirth; Z3A.37 37 weeks gestation of pregnancy; O99.334 Smoking (tobacco) complicating childbirth; O13.4 Gestational [pregnancy-induced] hypertension without significant proteinuria, complicating childbirth; F17.200 Nicotine dependence, unspecified, uncomplicated; F32.9 Major depressive disorder, single episode, unspecified; F41.0 Panic disorder [episodic paroxysmal anxiety]; K21.9 Gastro-esophageal reflux disease without esophagitis; K29.70 Gastritis, unspecified, without bleeding; E86.0 Dehydration
CPT/HCPCS: 59025; 81001; 82565; 82570; 83615; 84156; 84450; 84460; 84520; 84550; 85025; 86850; 86900; 86901; 88307; 96361; 96374; 99214; 99215

== ENCOUNTER 2023-12-08 19:13 | Emergency (ER) | payer OTHER ==
[2023-12-08 19:34] VITALS: BP 113/78; PULSE 92; RESP 18; TEMP 98.4
[2023-12-08] MEDS ORDERED: ONDANSETRON ODT 4 MG TAB PO STA (19:36)
--- NOTE | 2023-12-08 19:37 | ED ---
Nausea/Vomiting/Diarrhea HPI - General Chief complaint: Nausea/Vomiting/Diarrhea Stated complaint: dehydrated Time Seen by Provider: 12/08/23 19:36 Source: patient Mode of arrival: ambulatory Limitations: no limitations - History of Present Illness Initial comments: 23-year-old female presenting with chief complaint of nausea vomiting diarrhea headache fever and earache for the last 9 days. Her daughter tested positive for flu 7 days ago. - Related Data Home Medications Medication Instructions Recorded Confirmed ondansetron HCL [Zofran] 4 mg PO DAILY PRN MDD 8 mg 01/05/19 07/08/21 Omeprazole 1 tab PO BID 05/15/21 07/08/21 Pnv No.95/Ferrous Fum/Folic AC 1 each PO DAILY 05/31/21 07/08/21 [ Multivitamin Tablet] Citalopram Hydrobromide [CeleXA] 1 tab PO DAILY 06/14/21 07/08/21 Previous Rx's Medication Instructions Recorded Acetaminophen Tab [Tylenol] 650 mg PO Q4HR PRN tab 07/11/21 Citalopram Hydrobromide [CeleXA] 20 mg PO DAILY tab 07/11/21 Ibuprofen [Motrin] 600 mg PO Q6HR PRN #30 tab 07/11/21 Allergies Allergy/AdvReac Type Severity Reaction Status Date / Time cats Allergy runny Uncoded 12/08/23 19:33 nose, congestion, itching dust Allergy sneezing, Uncoded 12/08/23 19:33 rash mold Allergy congested, Uncoded 12/08/23 19:33 itchy, stuffy Review of Systems ROS Statement: Those systems with pertinent positive or pertinent negative responses have been documented in the HPI. ROS Other: All systems not noted in ROS Statement are negative. Past Medical History Past Medical History: GERD/Reflux Additional Past Medical History / Comment(s): Abd pain, severe gastritis, cannabinoid hyperemesis syndrome History of Any Multi-Drug Resistant Organisms: None Reported Past Surgical History: Cholecystectomy Additional Past Surgical History / Comment(s): wisdom teeth removed, zoraida in august of 2018 Past Anesthesia/Blood Transfusion Reactions: No Reported Reaction Past Psychological History: Anxiety, Depression Smoking Status: Current every day smoker Past Alcohol Use History: Occasional Past Drug Use History: Marijuana - Past Family History Mother Family Medical History: Asthma General Exam - General Exam Comments Initial Comments: Visual Physical Exam Vital signs reviewed General: Well-appearing, nontoxic, no acute distress. Head: Normocephalic, atraumatic Eyes: PERRLA, EOMI ENT: Airway patent Chest: Nonlabored breathing Skin: No visual rash, normal skin tone Neuro: Alert and oriented 3 Musculoskeletal: No gross abnormalities Limitations: no limitations Course Vital Signs 12/08/23 19:22 Temperature 98.4 F Pulse Rate 92 Respiratory 18 Rate Blood Pressure 113/78 O2 Sat by Pulse 95 Oximetry Medical Decision Making - Medical Decision Making I performed the quick note portion of this visit, electronically signed Oralia Madrid PA-C. Patient later left AGAINST MEDICAL ADVICE from the waiting room. - Lab Data Lab Results 12/08/23 Range/Units 19:38 Influenza Type A (PCR) Detected A (Not Detectd) Influenza Type B (PCR) Not Detected (Not Detectd) RSV (PCR) Not Detected (Not Detectd) SARS-CoV-2 (PCR) Not Detected (Not Detectd) Disposition Clinical Impression: Nausea & vomiting Disposition: LEFT AGAINST MEDICAL ADVICE Condition: Undetermined Referrals: Lonny Cavanaugh MD [Primary Care Provider] - 1-2 days
== END 2023-12-08 22:08 | disposition left against medical advice (07) ==
LOC: EC 19:13
DX: R11.2 Nausea with vomiting, unspecified (principal); Z53.29 Procedure and treatment not carried out because of patient's decision for other reasons; K21.9 Gastro-esophageal reflux disease without esophagitis; F32.A Depression, unspecified; F41.9 Anxiety disorder, unspecified; Z20.822 Contact with and (suspected) exposure to COVID-19; F17.200 Nicotine dependence, unspecified, uncomplicated; F12.90 Cannabis use, unspecified, uncomplicated; Z79.899 Other long term (current) drug therapy; Z91.09 Other allergy status, other than to drugs and biological substances; Z90.49 Acquired absence of other specified parts of digestive tract
CPT/HCPCS: 87636; 99283

== ENCOUNTER 2023-12-10 07:32 | Emergency (ER) | payer OTHER ==
--- NOTE | 2023-12-10 08:13 | ED ---
General Adult HPI <Albert Davis - Last Filed: 12/11/23 19:01> - General Source: patient, RN notes reviewed Mode of arrival: ambulatory Limitations: no limitations <Juanis Little - Last Filed: 12/12/23 06:41> - General Chief complaint: Psychiatric Symptoms Stated complaint: dehydration Time Seen by Provider: 12/10/23 07:57 - History of Present Illness Initial comments: 23 female for nausea vomiting not feeling well and psychiatric illness (Albert Davis) This is a 23 year old female who presents to the emergency department for nausea, vomiting, and psychiatric evaluation. Patient reports a hx of CHS, and states that she's been vomiting for about 5 days this point. She was at [facility] yesterday was given a shot of Haldol. She had very minor relief symptoms. Zofran is usually effective. She was not given IV fluids and did not have any blood work while she was there. She is concerned about getting dehydrated. States that she has not eaten in several days. She did use marijuana about 4 hours prior to arrival. States that this offers temporary relief for her symptoms, then causes problems in the long run. Denies any diarrhea or constipation. Reports minor abdominal cramping from all the vomiting. States that due to all of these symptoms, she is feeling increasingly depressed and has suicidal ideations. Denies any plans. (Juanis Little) - Related Data Home Medications Medication Instructions Recorded Confirmed Omeprazole 40 mg PO BID 05/15/21 12/10/23 Amoxic-Pot Clav 875-125Mg 1 tab PO BID 12/10/23 12/10/23 [Augmentin 875-125] Cetirizine HCl [Zyrtec] 10 mg PO DAILY 12/10/23 12/10/23 Ciprofloxacin-Dexameth [Ciprodex 4 drops BOTH EARS BID 12/10/23 12/10/23 Otic Susp] Dextroamphetamine/Amphetamine 40 mg PO DAILY 12/10/23 12/10/23 [Adderall Xr 20 mg Capsule] Fluticasone Nasal [place] [Flonase 1 spray EA NOSTRIL DAILY 12/10/23 12/10/23 Nasal [place]] Allergies Allergy/AdvReac Type Severity Reaction Status Date / Time cats Allergy runny Uncoded 12/08/23 19:33 nose, congestion, itching dust Allergy sneezing, Uncoded 12/08/23 19:33 rash mold Allergy congested, Uncoded 12/08/23 19:33 itchy, stuffy Review of Systems ROS Other: All systems not noted in ROS Statement are negative. <ValeryAlbert kim Lisa - Last Filed: 12/11/23 19:01> ROS Other: All systems not noted in ROS Statement are negative. <Juanis Little - Last Filed: 12/12/23 06:41> ROS Statement: Those systems with pertinent positive or pertinent negative responses have been documented in the HPI. Past Medical History Past Medical History: GERD/Reflux Additional Past Medical History / Comment(s): Abd pain, severe gastritis, cannabinoid hyperemesis syndrome History of Any Multi-Drug Resistant Organisms: None Reported Past Surgical History: Cholecystectomy Additional Past Surgical History / Comment(s): wisdom teeth removed, zoraida in august of 2018 Past Anesthesia/Blood Transfusion Reactions: No Reported Reaction Past Psychological History: Anxiety, Depression Smoking Status: Current every day smoker Past Alcohol Use History: Occasional Past Drug Use History: Marijuana - Past Family History Mother Family Medical History: Asthma <Juanis Little - Last Filed: 12/12/23 06:41> General Exam General appearance: alert, in no apparent distress Head exam: Present: atraumatic, normocephalic, normal inspection Eye exam: Present: normal appearance, PERRL, EOMI. Absent: scleral icterus, conjunctival injection, periorbital swelling ENT exam: Present: normal exam, mucous membranes moist Neck exam: Present: normal inspection. Absent: tenderness, meningismus, lymphadenopathy Respiratory exam: Present: normal lung sounds bilaterally. Absent: respiratory distress, wheezes, rales, rhonchi, stridor Cardiovascular Exam: Present: regular rate, normal rhythm, normal heart sounds. Absent: systolic murmur, diastolic murmur, rubs, gallop, clicks GI/Abdominal exam: Present: soft, normal bowel sounds. Absent: distended, tenderness, guarding, rebound, rigid Extremities exam: Present: normal inspection, full ROM, normal capillary refill. Absent: tenderness, pedal edema, joint swelling, calf tenderness Back exam: Present: normal inspection Neurological exam: Present: alert, oriented X3, CN II-XII intact Psychiatric exam: Present: normal affect, normal mood Skin exam: Present: warm, dry, intact, normal color. Absent: rash <Albert Davis - Last Filed: 12/11/23 19:01> Limitations: no limitations General appearance: alert, in no apparent distress Head exam: Present: atraumatic, normocephalic, normal inspection Respiratory exam: Present: normal lung sounds bilaterally. Absent: respiratory distress, wheezes, rales, rhonchi, stridor Cardiovascular Exam: Present: regular rate, normal rhythm, normal heart sounds. Absent: systolic murmur, diastolic murmur, rubs, gallop, clicks Neurological exam: Present: alert, oriented X3, CN II-XII intact Psychiatric exam: Present: depressed, suicidal ideation. Absent: homicidal ideation Skin exam: Present: warm, dry, intact, normal color. Absent: rash <Juanis Little - Last Filed: 12/12/23 06:41> Course <Albert Davis - Last Filed: 12/11/23 19:01> Vital Signs 12/10/23 12/10/23 12/11/23 07:52 15:55 06:12 Temperature 98.8 F 98.8 F Pulse Rate 99 86 84 Respiratory 16 20 18 Rate Blood Pressure 127/82 135/68 122/78 O2 Sat by Pulse 93 L 98 99 Oximetry 12/11/23 12/11/23 09:21 17:18 Temperature 97.4 F L Pulse Rate 102 H Respiratory 16 18 Rate Blood Pressure 133/91 O2 Sat by Pulse 96 Oximetry - Reevaluation(s) Reevaluation #1: Records reviewed Medically clear for psychiatric evaluation (Albert Davis) Medical Decision Making - Lab Data Result diagrams: 12/10/23 08:28 12/10/23 08:28 <Albert Davis - Last Filed: 12/11/23 19:01> - Lab Data Result diagrams: 12/10/23 08:28 12/10/23 08:28 <Juanis Little - Last Filed: 12/12/23 06:41> - Medical Decision Making This is a 23 year old female who presents to the emergency department for dehydration and psychiatric evaluation. Was pt. sent in by a medical professional or institution? @ -No Did you speak to anyone other than the patient for history? @ -No Did you review nursing and triage notes? @ -Yes, and I agree, it is accurate with regards to the patient's symptoms. Were old charts reviewed? @ -No Differential Diagnosis? @ -Differential Nausea and Vomiting: Gastroenteritis, cholecystitis, appendicitis, pancreatitis, migraine, benign positional vertigo, food borne illness, pyelonephritis, irritable bowel syndrome, influenza, Covid, GERD, incarcerated hernia, intestinal obstruction, this is not meant to be an all-inclusive list. EKG interpreted by me (3pts min.)? @ -Not obtained X-rays interpreted by me (1pt min.)? @ -Not obtained CT interpreted by me (1pt min.)? @ -Not obtained U/S interpreted by me (1pt. min.)? @ -Not obtained What testing was considered but not performed? (CT, X-rays, U/S, labs)? Why? @ -None What meds were considered but not given? Why? @ -None Did you discuss the management of the patient with other professionals? @ -Yes, Brandon with EPS, who advised that the patient meets criteria for inpatient psychiatric hospitalization based on increasing depression and suicidal ideations. Did you reconcile home meds? @ -No Was smoking cessation discussed for >3mins.? @ -No Was critical care preformed (if so, how long)? @ -No Were there social determinants of health that impacted care today? How? (Homelessness, low income, unemployed, alcoholism, drug addiction, transportation, low edu. Level, literacy, decrease access to med. care, residential, rehab)? @ -No Was there de-escalation of care discussed even if they declined? (Discuss DNR or withdrawal of care, Hospice)? @ -No What co-morbidities impacted this encounter? (DM, HTN, Smoking, COPD, CAD, Cancer, CVA, Hep., AIDS, mental health diagnosis, sleep apnea, morbid obesity)? @ -Marijuana use, CHS, GERD Was patient admitted / discharged? @ -Lab work obtained revealing leukocytosis and was otherwise unremarkable. Leukocytosis likely reactive from all of the nausea and vomiting. Patient has no abdominal pain on exam. Nausea well controlled with IV fluids and Zofran. She did require Ativan due to significant emotional distress and Toradol for generalized back discomfort. BAT was 0.0 and patient was cleared for EPS evalution after initial workup was complete. EPS advised that given the increasing depression with suicidal ideations, she does meet criteria for inpatient psychiatric hospitalization. Patient transferred to outside facility for inpatient psychiatric management. Undiagnosed new problem with uncertain prognosis? @ -None Drug Therapy requiring intensive monitoring for toxicity (Heparin, Nitro, Insulin, Cardizem)? @ -None Were any procedures done? @ -None Diagnosis/symptom? @ -Suicidal ideations Acute, or Chronic, or Acute on Chronic? @ -Acute Uncomplicated (without systemic symptoms) or Complicated (systemic symptoms)? @ -Uncomplicated Side effects of treatment? @ -None Exacerbation, Progression, or Severe Exacerbation] @ -Not applicable Poses a threat to life or bodily function? @ -Yes (Juanis Little) - Lab Data Lab Results 12/10/23 12/10/23 12/10/23 Range/Units 08:28 08:28 10:47 WBC 22.0 H (3.8-10.6) k/uL RBC 5.62 H (3.80-5.40) m/uL Hgb 14.7 (11.4-16.0) gm/dL Hct 45.1 (34.0-46.0) % MCV 80.3 (80.0-100.0) fL MCH 26.2 (25.0-35.0) pg MCHC 32.6 (31.0-37.0) g/dL RDW 13.9 (11.5-15.5) % Plt Count 466 H (150-450) k/uL MPV 8.2 Neutrophils % 80 % Lymphocytes % 12 % Monocytes % 6 % Eosinophils % 0 % Basophils % 0 % Neutrophils # 17.7 H (1.3-7.7) k/uL Lymphocytes # 2.7 (1.0-4.8) k/uL Monocytes # 1.3 H (0-1.0) k/uL Eosinophils # 0.0 (0-0.7) k/uL Basophils # 0.1 (0-0.2) k/uL Sodium 138 (137-145) mmol/L Potassium 4.6 (3.5-5.1) mmol/L Chloride 99 (98-107) mmol/L Carbon Dioxide 27 (22-30) mmol/L Anion Gap 12 mmol/L BUN 11 (7-17) mg/dL Creatinine 0.56 (0.52-1.04) mg/dL Est GFR (CKD-EPI)AfAm >90 (>60 ml/min/1.73 sqM) Est GFR (CKD-EPI)NonAf >90 (>60 ml/min/1.73 sqM) Glucose 112 H (74-99) mg/dL Calcium 9.6 (8.4-10.2) mg/dL Total Bilirubin 1.2 (0.2-1.3) mg/dL AST 39 H (14-36) U/L ALT 33 (4-34) U/L Alkaline Phosphatase 107 (38-126) U/L Total Protein 8.2 (6.3-8.2) g/dL Albumin 4.4 (3.5-5.0) g/dL Amylase 45 (30-110) U/L Lipase 15 L (23-300) U/L Urine Color Yellow Urine Appearance Cloudy H (Clear) Urine pH 6.0 (5.0-8.0) Ur Specific [place] 1.011 (1.001-1.035) Urine Protein Negative (Negative) Urine Glucose (UA) Negative (Negative) Urine Ketones Negative (Negative) Urine Blood Negative (Negative) Urine Nitrite Negative (Negative) Urine Bilirubin Negative (Negative) Urine Urobilinogen <2.0 (<2.0) mg/dL Ur Leukocyte Esterase Moderate H (Negative) Urine RBC 7 H (0-5) /hpf Urine WBC 8 H (0-5) /hpf Ur Squamous Epith Cells 21 H (0-4) /hpf Urine Bacteria Rare H (None) /hpf Urine Mucus Occasional H (None) /hpf Urine Yeast (Budding) Occasional H (None) /hpf Urine HCG, Qual (Not Detectd) Urine Opiates Screen Not Detected (NotDetected) Ur Oxycodone Screen Not Detected (NotDetected) Urine Methadone Screen Not Detected (NotDetected) Ur Barbiturates Screen Not Detected (NotDetected) U Tricyclic Antidepress Not Detected (NotDetected) Ur Phencyclidine Scrn Not Detected (NotDetected) Ur Amphetamines Screen Not Detected (NotDetected) U Methamphetamines Scrn Not Detected (NotDetected) U Benzodiazepines Scrn Not Detected (NotDetected) Urine Cocaine Screen Not Detected (NotDetected) U Marijuana (THC) Screen Detected H (NotDetected) Influenza Type A (PCR) (Not Detectd) Influenza Type B (PCR) (Not Detectd) RSV (PCR) (Not Detectd) SARS-CoV-2 (PCR) (Not Detectd) 12/10/23 12/11/23 12/11/23 Range/Units 10:47 07:00 07:00 WBC (3.8-10.6) k/uL RBC (3.80-5.40) m/uL Hgb (11.4-16.0) gm/dL Hct (34.0-46.0) % MCV (80.0-100.0) fL MCH (25.0-35.0) pg MCHC (31.0-37.0) g/dL RDW (11.5-15.5) % Plt Count (150-450) k/uL MPV Neutrophils % % Lymphocytes % % Monocytes % % Eosinophils % % Basophils % % Neutrophils # (1.3-7.7) k/uL Lymphocytes # (1.0-4.8) k/uL Monocytes # (0-1.0) k/uL Eosinophils # (0-0.7) k/uL Basophils # (0-0.2) k/uL Sodium (137-145) mmol/L Potassium (3.5-5.1) mmol/L Chloride (98-107) mmol/L Carbon Dioxide (22-30) mmol/L Anion Gap mmol/L BUN (7-17) mg/dL Creatinine (0.52-1.04) mg/dL Est GFR (CKD-EPI)AfAm (>60 ml/min/1.73 sqM) Est GFR (CKD-EPI)NonAf (>60 ml/min/1.73 sqM) Glucose (74-99) mg/dL Calcium (8.4-10.2) mg/dL Total Bilirubin (0.2-1.3) mg/dL AST (14-36) U/L ALT (4-34) U/L Alkaline Phosphatase (38-126) U/L Total Protein (6.3-8.2) g/dL Albumin (3.5-5.0) g/dL Amylase (30-110) U/L Lipase (23-300) U/L Urine Color Urine Appearance (Clear) Urine pH (5.0-8.0) Ur Specific [place] (1.001-1.035) Urine Protein (Negative) Urine Glucose (UA) (Negative) Urine Ketones (Negative) Urine Blood (Negative) Urine Nitrite (Negative) Urine Bilirubin (Negative) Urine Urobilinogen (<2.0) mg/dL Ur Leukocyte Esterase (Negative) Urine RBC (0-5) /hpf Urine WBC (0-5) /hpf Ur Squamous Epith Cells (0-4) /hpf Urine Bacteria (None) /hpf Urine Mucus (None) /hpf Urine Yeast (Budding) (None) /hpf Urine HCG, Qual Not Detected (Not Detectd) Urine Opiates Screen (NotDetected) Ur Oxycodone Screen (NotDetected) Urine Methadone Screen (NotDetected) Ur Barbiturates Screen (NotDetected) U Tricyclic Antidepress (NotDetected) Ur Phencyclidine Scrn (NotDetected) Ur Amphetamines Screen (NotDetected) U Methamphetamines Scrn (NotDetected) U Benzodiazepines Scrn (NotDetected) Urine Cocaine Screen (NotDetected) U Marijuana (THC) Screen (NotDetected) Influenza Type A (PCR) Not Detected (Not Detectd) Influenza Type B (PCR) Not Detected (Not Detectd) RSV (PCR) Not Detected (Not Detectd) SARS-CoV-2 (PCR) Not Detected Not Detected (Not Detectd) Disposition Is patient prescribed a controlled substance at d/c from ED?: No <Albert Davis - Last Filed: 12/11/23 19:01> <Juanis Little - Last Filed: 12/12/23 06:41> Clinical Impression: Suicidal ideation, Depression, Cannabinoid hyperemesis syndrome Disposition: TRANSFER TO PSYCH HOSP/UNIT Condition: Fair Referrals: Lonny Cavanaugh MD [Primary Care Provider] - 1-2 days
[2023-12-10] MEDS: SODIUM CHLORIDE 0.9% 1,000 ML IV STA (08:51)
[2023-12-10] MEDS: FAMOTIDINE 20 MG/2 ML VIAL IV STA (08:51)
[2023-12-10] MEDS: ONDANSETRON 4 MG/2 ML VIAL IVP STA (08:51)
[2023-12-10 09:23] LABS: Basophils # (A) 0.1 k/uL (0-0.2); Basophils % (A) 0 %; Eosinophils % (A) 0 %; HCT 45.1 % (34.0-46.0); HGB 14.7 gm/dL (11.4-16.0); Lymphocytes # (A) 2.7 k/uL (1.0-4.8); Lymphocytes % (A) 12 %; MCH 26.2 pg (25.0-35.0); MCHC 32.6 g/dL (31.0-37.0); MCV 80.3 fL (80.0-100.0); Mean Platelet Volume 8.2; Monocytes # (A) 1.3 k/uL (0-1.0); Monocytes % (A) 6 %; Neutrophils # (A) 17.7 k/uL (1.3-7.7); Neutrophils % (A) 80 %; Platelet Count 466 k/uL (150-450); RBC 5.62 m/uL (3.80-5.40); RDW 13.9 % (11.5-15.5)
[2023-12-10 09:45] LABS: ALT 33 U/L (4-34); African American GFR (CKD) >90 (>60 ml/min/1.73 sqM); Albumin 4.4 g/dL (3.5-5.0); Amylase 45 U/L (30-110); Anion Gap 12 mmol/L; Blood Urea Nitrogen 11 mg/dL (7-17); Calcium 9.6 mg/dL (8.4-10.2); Carbon Dioxide 27 mmol/L (22-30); Chloride 99 mmol/L (98-107); Glucose 112 mg/dL (74-99); Lipase 15 U/L (23-300); Non-African American GFR(CKD) >90 (>60 ml/min/1.73 sqM); Sodium 138 mmol/L (137-145); Total Bilirubin 1.2 mg/dL (0.2-1.3); Total Protein 8.2 g/dL (6.3-8.2)
[2023-12-10 09:52] LABS: AST 39 U/L (14-36); Alkaline Phosphatase 107 U/L (38-126); Potassium 4.6 mmol/L (3.5-5.1)
[2023-12-10 11:43] LABS: Amphetamine Screen,Urine Not Detected (NotDetected); Barbiturate Screen,Urine Not Detected (NotDetected); Benzodiazepines Screen,Urine Not Detected (NotDetected); Cocaine Screen,Urine Not Detected (NotDetected); Methadone Screen, Urine Not Detected (NotDetected); Opiate Screen,Urine Not Detected (NotDetected); Oxycodone Screen, Urine Not Detected (NotDetected); Phencyclidine Screen,Urine Not Detected (NotDetected); Tricyclic Antidepressant,Urine Not Detected (NotDetected); Urn Cannabinoid Scrn Detected (NotDetected)
[2023-12-10 11:45] LABS: Appearance,Urine Cloudy (Clear); Bacteria,Urine Rare /hpf; Bilirubin,Urine Negative (Negative); Blood,Urine Negative (Negative); Budding Yeast,Urine Occasional /hpf; Color,Urine Yellow; Glucose,Urine (UA) Negative (Negative); Ketones,Urine Negative (Negative); Leukocyte Esterase,Urine Moderate (Negative); Mucus,Urine Occasional /hpf; Nitrite,Urine Negative (Negative); Protein,Urine Negative (Negative); RBC,Urine 7 /hpf (0-5); Specific Gravity,Urine 1.011 (1.001-1.035); Squamous Epithelial Cell,Urine 21 /hpf (0-4); Urobilinogen,Urine <2.0 mg/dL (<2.0); WBC,Urine 8 /hpf (0-5)
[2023-12-10] MEDS: KETOROLAC 15 MG/ML 1 ML VIAL IVP STA (11:53)
[2023-12-10] MEDS: LORazepam 2 MG/ML INJ IV STA ×2 (11:53→14:53)
[2023-12-10] MEDS: IBUPROFEN 600 MG TAB PO PRN (18:59)
[2023-12-10] MEDS: LORazepam 2 MG/ML INJ IV PRN (19:00)
[2023-12-10] MEDS: MAG HYDROX/AL HYDROX/SIMETH 30 ML, HYOSCYAMINE ELIXIR 10 ML, LIDOCAINE VISCOUS 2% 10 ML PO STA (22:03)
[2023-12-11] MEDS: diphenhydrAMINE 25 MG CAP PO STA (00:28)
[2023-12-11] MEDS: ACETAMINOPHEN TAB 325 MG TAB PO PRN (00:35)
[2023-12-11] MEDS: ONDANSETRON 4 MG/2 ML VIAL IVP PRN (00:35)
[2023-12-11] MEDS: LORazepam 2 MG/ML INJ IV STA ×2 (03:59→07:52)
[2023-12-11] MEDS: FAMOTIDINE 20 MG/2 ML VIAL IV STA (07:52)
[2023-12-11 17:25] VITALS: BP 133/91; PULSE 102; RESP 18; TEMP 97.4
[2023-12-11] MEDS: LORazepam 1 MG TAB PO STA (18:30)
[2023-12-11] MEDS: NICOTINE 21MG/24HR PATCH TRANSDERM STA (18:49)
== END 2023-12-11 22:10 ==
LOC: EC 07:32
DX: F32.A Depression, unspecified (principal); R11.2 Nausea with vomiting, unspecified; K21.9 Gastro-esophageal reflux disease without esophagitis; F17.200 Nicotine dependence, unspecified, uncomplicated; F12.90 Cannabis use, unspecified, uncomplicated; Z20.822 Contact with and (suspected) exposure to COVID-19; Z79.899 Other long term (current) drug therapy; Z91.09 Other allergy status, other than to drugs and biological substances; Z90.49 Acquired absence of other specified parts of digestive tract
CPT/HCPCS: 99285; 96374; 96375 ×3; 96376 ×6; 96361 ×19; 82075; 36415; 80053; 82150; 83690; 85025; 81001; 81025; 80306; 87635; 87636; S4990; J2060 ×2; J2405 ×2; J3490 ×2; J1885

== ENCOUNTER 2023-12-23 16:09 | Inpatient (IN) | payer MEDICAID, OTHER ==
--- NOTE | 2023-12-23 17:05 | ED ---
Psych HPI - General Source: patient, RN notes reviewed Mode of arrival: ambulatory <Angélica Robles - Last Filed: 12/23/23 17:05> <Ab Segovia - Last Filed: 12/27/23 01:17> - General Chief Complaint: Psychiatric Symptoms Stated Complaint: Mental Health Time Seen by Provider: 12/23/23 17:05 - History of Present Illness Initial Comments: Patient is a 24-year-old female presented to ER with a chief complaint of suicidal ideation. Denies any plan. Patient has been taking her meds as prescribed. She states she would like to be admitted to same facility she was last time. (Angélica Robles) Dictation was produced using [employer] dictation software. please excuse any grammatical, word or spelling errors. Chief Complaint: 23-year-old female presents with suicidal ideation History of Present Illness: Patient 23-year-old female presents with suicidal ideation. Patient states she does not have a specific plan. Denies any homicidal ideation she was just released a few days ago from psychiatric facility. She states that she was prematurely discharged. Denies any homicidal ideation. No visual or auditory hallucinations. Patient complains of some mild atraumatic back soreness. States that she went to the chiropractor today which helped her symptoms. The ROS documented in this emergency department record has been reviewed and confirmed by me. Those systems with pertinent positive or negative responses have been documented in the HPI. All other systems are other negative and/or noncontributory. (Ab Segovia) - Related Data Home Medications Medication Instructions Recorded Confirmed Omeprazole 40 mg PO BID 05/15/21 12/23/23 Cetirizine HCl [Zyrtec] 10 mg PO DAILY 12/10/23 12/23/23 Dextroamphetamine/Amphetamine 40 mg PO DAILY 12/10/23 12/23/23 [Adderall Xr 20 mg Capsule] Fluticasone Nasal [place]ath [Flonase 1 spray EA NOSTRIL DAILY 12/10/23 12/23/23 Nasal Zare[place]ath] Divalproex ER [Depakote ER] 250 mg PO TID 12/23/23 12/23/23 buPROPion HCL [buPROPion HCL SR] 100 mg PO DAILY 02/29/24 02/29/24 haloperidoL 4 mg PO HS 12/23/23 12/23/23 Allergies Allergy/AdvReac Type Severity Reaction Status Date / Time cats Allergy runny Uncoded 12/23/23 22:50 nose, congestion, itching dust Allergy sneezing, Uncoded 12/23/23 22:50 rash mold Allergy congested, Uncoded 12/23/23 22:50 itchy, stuffy Review of Systems ROS Other: All systems not noted in ROS Statement are negative. <Angélica Robles - Last Filed: 12/23/23 17:05> ROS Other: All systems not noted in ROS Statement are negative. <Ab Segovia - Last Filed: 12/27/23 01:17> ROS Statement: Those systems with pertinent positive or pertinent negative responses have been documented in the HPI. Past Medical History Past Medical History: GERD/Reflux Additional Past Medical History / Comment(s): Abd pain, severe gastritis, cannabinoid hyperemesis syndrome History of Any Multi-Drug Resistant Organisms: None Reported Past Surgical History: Cholecystectomy Additional Past Surgical History / Comment(s): wisdom teeth removed, zoraida in august of 2018 Past Anesthesia/Blood Transfusion Reactions: No Reported Reaction Past Psychological History: Anxiety, Depression Smoking Status: Current every day smoker Past Alcohol Use History: Occasional Past Drug Use History: Marijuana - Past Family History Mother Family Medical History: Asthma <Angélica Robles - Last Filed: 12/23/23 17:05> General Exam Limitations: no limitations <Angélica Robles - Last Filed: 12/23/23 17:05> <Ab Segovia - Last Filed: 12/27/23 01:17> - General Exam Comments Initial Comments: Visual Physical Exam Vital signs reviewed General: Well-appearing, nontoxic, no acute distress. Head: Normocephalic, atraumatic Eyes: PERRLA, EOMI ENT: Airway patent Chest: Nonlabored breathing Skin: No visual rash, normal skin tone Neuro: Alert and oriented 3 Musculoskeletal: No gross abnormalities (Angélica Robles) General: Well-appearing, nontoxic, no acute distress. Head: Normocephalic, atraumatic Eyes: PERRLA, EOMI ENT: Airway patent Chest: Nonlabored breathing Skin: No visual rash, normal skin tone Neuro: Alert and oriented 3 Musculoskeletal: No gross abnormalities (Ab Segovia) Course Vital Signs 12/23/23 12/23/23 16:30 22:38 Temperature 98.3 F Pulse Rate 100 90 Respiratory 20 18 Rate Blood Pressure 139/97 117/86 O2 Sat by Pulse 98 98 Oximetry Medical Decision Making <Angélica Robles - Last Filed: 12/23/23 17:05> - Lab Data Result diagrams: 12/24/23 10:47 12/24/23 10:47 <Ab Segovia - Last Filed: 12/27/23 01:17> - Medical Decision Making I performed the quick note portion of this chart. Electronically signed by Angélica Robles PA-C (Angélica Robles) Was pt. sent in by a medical professional or institution (CHRISTINE Daly, SENIOR STRATEGY ANALYST, urgent care, hospital, or care home...) When possible be specific @ -No Did you speak to anyone other than the patient for history (EMS, parent, family, police, friend...)? What history was obtained from this source @ -No Did you review nursing and triage notes (agree or disagree)? Why? @ -I reviewed and agree with nursing and triage notes Were old charts reviewed (outside hosp., previous admission, EMS record, old EKG, old radiological studies, urgent care reports/EKG's, care home records)? Report findings @ -No old charts were reviewed Differential Diagnosis (chest pain, altered mental status, abdominal pain women, abdominal pain men, vaginal bleeding, musculoskeletal, weakness, fever, dyspnea, syncope, headache, dizziness, GI bleed, back pain, seizure, CVA, palpatations, mental health)? @ -Differential Mental Health: Depression, anxiety, bipolar, psychosis, schizophrenia, borderline personality, situational depression, adjustment disorder, behavioral disorder, brain tumor, malingering, substance abuse, encephalopathy, medication reaction, dementia, hypothyroidism, degenerative neurologic disorder, lupus.... This is not meant to be all-inclusive list EKG interpreted by me (3pts min.). @ -None done X-rays interpreted by me (1pt min.). @ -None done CT interpreted by me (1pt min.). @ -None done U/S interpreted by me (1pt. min.). @ -None done What testing was considered but not performed or refused? (CT, X-rays, U/S, labs)? Why? @ -None What meds were considered but not given or refused? Why? @ -None Did you discuss the management of the patient with other professionals (abdullahi leon i.e. , PA, SENIOR STRATEGY ANALYST, lab, RT, psych nurse, executive secretary social welfare, shoe cleaner, teacher, transportation officer, mattress spring encaser)? Give summary @ -No Was smoking cessation discussed for >3mins.? @ -No Was critical care preformed (if so, how long)? @ -No Were there social determinants of health that impacted care today? How? (Homelessness, low income, unemployed, alcoholism, drug addiction, transportation, low edu. Level, literacy, decrease access to med. care, custodial, rehab)? @ -No Was there de-escalation of care discussed even if they declined (Discuss DNR or withdrawal of care, Hospice)? DNR status @ -No What co-morbidities impacted this encounter? (DM, HTN, Smoking, COPD, CAD, Cancer, CVA, ARF, Chemo, Hep., AIDS, mental health diagnosis, sleep apnea, morbid obesity)? @ -None Was patient admitted / discharged? Hospital course, mention meds given and route, prescriptions, significant lab abnormalities, going to OR and other pertinent info. @ -23-year-old well-appearing female presents emergency department for suicidal ideation. Vital signs stable. Physical examination is benign. Patient medical ly cleared for EPS evaluation Patient chart reviewed earlier date showing the patient was admitted to inpatient psychiatric unit Undiagnosed new problem with uncertain prognosis? @ -No Drug Therapy requiring intensive monitoring for toxicity (Heparin, Nitro, Insulin, Cardizem)? @ -No Were any procedures done? @ -No Diagnosis/symptom? Acute, or Chronic, or Acute on Chronic? Uncomplicated (wit hout systemic symptoms) or Complicated (systemic symptoms)? @ -S suicidal ideation Side effects of treatment? @ -No Exacerbation, Progression, or Severe Exacerbation? @ -No Poses a threat to life or bodily function? How? (Chest pain, USA, CO, pneumonia, PE, COPD, DKA, ARF, appy, cholecystitis, CVA, Diverticulitis, Homicidal, Suicidal, threat to staff... and all critical care pts) @ -yes (Ab Segovia) - Lab Data Lab Results 12/23/23 12/24/23 12/24/23 Range/Units 20:10 10:47 10:47 WBC 7.7 (3.8-10.6) k/uL RBC 4.92 (3.80-5.40) m/uL Hgb 13.5 (11.4-16.0) gm/dL Hct 40.3 (34.0-46.0) % MCV 81.8 (80.0-100.0) fL MCH 27.5 (25.0-35.0) pg MCHC 33.6 (31.0-37.0) g/dL RDW 14.7 (11.5-15.5) % Plt Count 217 (150-450) k/uL MPV 8.3 Neutrophils % 51 % Lymphocytes % 37 % Monocytes % 7 % Eosinophils % 2 % Basophils % 1 % Neutrophils # 3.9 (1.3-7.7) k/uL Lymphocytes # 2.8 (1.0-4.8) k/uL Monocytes # 0.6 (0-1.0) k/uL Eosinophils # 0.2 (0-0.7) k/uL Basophils # 0.0 (0-0.2) k/uL Sodium 139 (137-145) mmol/L Potassium 4.2 (3.5-5.1) mmol/L Chloride 107 (98-107) mmol/L Carbon Dioxide 23 (22-30) mmol/L Anion Gap 9 mmol/L BUN 10 (7-17) mg/dL Creatinine 0.57 (0.52-1.04) mg/dL Est GFR (CKD-EPI)AfAm >90 (>60 ml/min/1.73 sqM) Est GFR (CKD-EPI)NonAf >90 (>60 ml/min/1.73 sqM) Glucose 98 (74-99) mg/dL Calcium 9.1 (8.4-10.2) mg/dL Total Bilirubin 0.8 (0.2-1.3) mg/dL AST 29 (14-36) U/L ALT 39 H (4-34) U/L Alkaline Phosphatase 67 (38-126) U/L Total Protein 6.6 (6.3-8.2) g/dL Albumin 3.7 (3.5-5.0) g/dL Urine Color Urine Appearance (Clear) Urine pH (5.0-8.0) Ur Specific [place] (1.001-1.035) Urine Protein (Negative) Urine Glucose (UA) (Negative) Urine Ketones (Negative) Urine Blood (Negative) Urine Nitrite (Negative) Urine Bilirubin (Negative) Urine Urobilinogen (<2.0) mg/dL Ur Leukocyte Esterase (Negative) Urine RBC (0-5) /hpf Urine WBC (0-5) /hpf Ur Squamous Epith Cells (0-4) /hpf Urine Bacteria (None) /hpf Urine Mucus (None) /hpf Urine HCG, Qual (Not Detectd) Urine Opiates Screen Not Detected (NotDetected) Ur Oxycodone Screen Not Detected (NotDetected) Urine Methadone Screen Not Detected (NotDetected) Ur Barbiturates Screen Not Detected (NotDetected) U Tricyclic Antidepress Not Detected (NotDetected) Ur Phencyclidine Scrn Not Detected (NotDetected) Ur Amphetamines Screen Not Detected (NotDetected) U Methamphetamines Scrn Not Detected (NotDetected) U Benzodiazepines Scrn Not Detected (NotDetected) Urine Cocaine Screen Not Detected (NotDetected) U Marijuana (THC) Screen Detected H (NotDetected) Influenza Type A (PCR) (Not Detectd) Influenza Type B (PCR) (Not Detectd) RSV (PCR) (Not Detectd) SARS-CoV-2 (PCR) (Not Detectd) 12/24/23 12/24/23 12/24/23 Range/Units 10:47 10:47 10:47 WBC (3.8-10.6) k/uL RBC (3.80-5.40) m/uL Hgb (11.4-16.0) gm/dL Hct (34.0-46.0) % MCV (80.0-100.0) fL MCH (25.0-35.0) pg MCHC (31.0-37.0) g/dL RDW (11.5-15.5) % Plt Count (150-450) k/uL MPV Neutrophils % % Lymphocytes % % Monocytes % % Eosinophils % % Basophils % % Neutrophils # (1.3-7.7) k/uL Lymphocytes # (1.0-4.8) k/uL Monocytes # (0-1.0) k/uL Eosinophils # (0-0.7) k/uL Basophils # (0-0.2) k/uL Sodium (137-145) mmol/L Potassium (3.5-5.1) mmol/L Chloride (98-107) mmol/L Carbon Dioxide (22-30) mmol/L Anion Gap mmol/L BUN (7-17) mg/dL Creatinine (0.52-1.04) mg/dL Est GFR (CKD-EPI)AfAm (>60 ml/min/1.73 sqM) Est GFR (CKD-EPI)NonAf (>60 ml/min/1.73 sqM) Glucose (74-99) mg/dL Calcium (8.4-10.2) mg/dL Total Bilirubin (0.2-1.3) mg/dL AST (14-36) U/L ALT (4-34) U/L Alkaline Phosphatase (38-126) U/L Total Protein (6.3-8.2) g/dL Albumin (3.5-5.0) g/dL Urine Color Light Yellow Urine Appearance Clear (Clear) Urine pH 6.5 (5.0-8.0) Ur Specific [place] 1.013 (1.001-1.035) Urine Protein Negative (Negative) Urine Glucose (UA) Negative (Negative) Urine Ketones Negative (Negative) Urine Blood Negative (Negative) Urine Nitrite Negative (Negative) Urine Bilirubin Negative (Negative) Urine Urobilinogen <2.0 (<2.0) mg/dL Ur Leukocyte Esterase Trace H (Negative) Urine RBC 1 (0-5) /hpf Urine WBC 3 (0-5) /hpf Ur Squamous Epith Cells 7 H (0-4) /hpf Urine Bacteria Rare H (None) /hpf Urine Mucus Occasional H (None) /hpf Urine HCG, Qual Not Detected (Not Detectd) Urine Opiates Screen (NotDetected) Ur Oxycodone Screen (NotDetected) Urine Methadone Screen (NotDetected) Ur Barbiturates Screen (NotDetected) U Tricyclic Antidepress (NotDetected) Ur Phencyclidine Scrn (NotDetected) Ur Amphetamines Screen (NotDetected) U Methamphetamines Scrn (NotDetected) U Benzodiazepines Scrn (NotDetected) Urine Cocaine Screen (NotDetected) U Marijuana (THC) Screen (NotDetected) Influenza Type A (PCR) Not Detected (Not Detectd) Influenza Type B (PCR) Not Detected (Not Detectd) RSV (PCR) Not Detected (Not Detectd) SARS-CoV-2 (PCR) Not Detected (Not Detectd) Disposition <Angélica Robles - Last Filed: 12/23/23 17:05> <Ab Segovia - Last Filed: 12/27/23 01:17> Clinical Impression: Suicidal ideation Disposition: ADMITTED IP TO THIS HOSP Condition: Fair
[2023-12-23 20:56] LABS: Amphetamine Screen,Urine Not Detected (NotDetected); Barbiturate Screen,Urine Not Detected (NotDetected); Benzodiazepines Screen,Urine Not Detected (NotDetected); Cocaine Screen,Urine Not Detected (NotDetected); Methadone Screen, Urine Not Detected (NotDetected); Opiate Screen,Urine Not Detected (NotDetected); Oxycodone Screen, Urine Not Detected (NotDetected); Phencyclidine Screen,Urine Not Detected (NotDetected); Tricyclic Antidepressant,Urine Not Detected (NotDetected); Urn Cannabinoid Scrn Detected (NotDetected)
[2023-12-23] MEDS: HYDROcodone/APAP 5-325MG 1 EACH TAB PO STA (23:23)
[2023-12-24 11:09] LABS: Basophils % (A) 1 %; Eosinophils # (A) 0.2 k/uL (0-0.7); Eosinophils % (A) 2 %; HCT 40.3 % (34.0-46.0); HGB 13.5 gm/dL (11.4-16.0); Lymphocytes # (A) 2.8 k/uL (1.0-4.8); Lymphocytes % (A) 37 %; MCH 27.5 pg (25.0-35.0); MCHC 33.6 g/dL (31.0-37.0); MCV 81.8 fL (80.0-100.0); Mean Platelet Volume 8.3; Monocytes # (A) 0.6 k/uL (0-1.0); Monocytes % (A) 7 %; Neutrophils # (A) 3.9 k/uL (1.3-7.7); Neutrophils % (A) 51 %; Platelet Count 217 k/uL (150-450); RBC 4.92 m/uL (3.80-5.40); RDW 14.7 % (11.5-15.5); WBC 7.7 k/uL (3.8-10.6)
[2023-12-24 11:20] LABS: ALT 39 U/L (4-34); AST 29 U/L (14-36); African American GFR (CKD) >90 (>60 ml/min/1.73 sqM); Albumin 3.7 g/dL (3.5-5.0); Alkaline Phosphatase 67 U/L (38-126); Anion Gap 9 mmol/L; Blood Urea Nitrogen 10 mg/dL (7-17); Calcium 9.1 mg/dL (8.4-10.2); Carbon Dioxide 23 mmol/L (22-30); Chloride 107 mmol/L (98-107); Glucose 98 mg/dL (74-99); Non-African American GFR(CKD) >90 (>60 ml/min/1.73 sqM); Potassium 4.2 mmol/L (3.5-5.1); Sodium 139 mmol/L (137-145); Total Bilirubin 0.8 mg/dL (0.2-1.3); Total Protein 6.6 g/dL (6.3-8.2)
[2023-12-24] MEDS ORDERED: MAG HYDROX/AL HYDROX/SIMETH 355 ML BOTTLE PO PRN (12:24)
[2023-12-24] MEDS ORDERED: HALOPERIDOL LACTATE 5 MG/ML 1 ML VIAL IM PRN (12:24)
[2023-12-24] MEDS: NICOTINE 14MG/24HR PATCH TRANSDERM SCH (13:33)
[2023-12-24 13:49] LABS: Appearance,Urine Clear (Clear); Bacteria,Urine Rare /hpf; Bilirubin,Urine Negative (Negative); Blood,Urine Negative (Negative); Color,Urine Light Yellow; Glucose,Urine (UA) Negative (Negative); Ketones,Urine Negative (Negative); Leukocyte Esterase,Urine Trace (Negative); Mucus,Urine Occasional /hpf; Nitrite,Urine Negative (Negative); PH, Urine 6.5 (5.0-8.0); Protein,Urine Negative (Negative); RBC,Urine 1 /hpf (0-5); Specific Gravity,Urine 1.013 (1.001-1.035); Squamous Epithelial Cell,Urine 7 /hpf (0-4); Urobilinogen,Urine <2.0 mg/dL (<2.0); WBC,Urine 3 /hpf (0-5)
[2023-12-24] MEDS: IBUPROFEN 600 MG TAB PO PRN (15:48)
[2023-12-24] MEDS: DIVALPROEX ER 250 MG TAB.ER.24H PO SCH (16:27)
[2023-12-24] MEDS: ACETAMINOPHEN TAB 325 MG TAB PO PRN (18:24)
[2023-12-24] MEDS: LORazepam 1 MG TAB PO PRN (21:34)
[2023-12-24] MEDS: PANTOPRAZOLE 40 MG TABLET PO SCH (21:34)
[2023-12-25] MEDS: buPROPion SR 100 MG TABLET.ER PO SCH (08:06)
[2023-12-25] MEDS: LORATADINE 10 MG TAB PO SCH (08:06)
[2023-12-25] MEDS: FLUTICASONE 50MCG/SPRAY NASAL 16GM EA NOSTRIL SCH (08:10)
[2023-12-25] MEDS: NAPROXEN 250 MG TAB PO SCH (11:06)
[2023-12-25 13:12] LABS: ALT 38 U/L (4-34); AST 26 U/L (14-36); Albumin 3.8 g/dL (3.5-5.0); Alkaline Phosphatase 73 U/L (38-126); Bilirubin, Delta 0.1 mg/dL (0.0-0.2); Bilirubin,Unconjugated 0.5 mg/dL (0.0-1.1); Total Bilirubin 0.6 mg/dL (0.2-1.3); Total Protein 6.7 g/dL (6.3-8.2)
--- NOTE | 2023-12-25 15:23 | CONS ---
CONSULTATION CHIEF COMPLAINT: Major depression. HISTORY OF PRESENT ILLNESS: This lady apparently was transferred from [facility]. She was apparently admitted there for depression. REVIEW OF SYSTEMS: She denies any headaches, chest pain, shortness of breath, problems with vision or hearing, abdominal pain, nausea, vomiting, urinary complaints, etc. Past medical history, family history, personal and social histories reveal that when she was last seen in the office in October, she was on omeprazole and Adderall XR. She does smoke. PHYSICAL EXAMINATION: VITAL SIGNS: Normal. HEAD, EARS, EYES, NOSE, MOUTH, AND THROAT: Normal. CHEST: Clear. CARDIAC: Normal. ABDOMEN: Soft and nontender. EXTREMITIES: Normal. She does complain of back pain. IMPRESSION: 1. Major depression. 2. History of attention-deficit disorder. 3. History of gastroesophageal reflux disease. 4. Low back pain. RECOMMENDATIONS: None. Thank you respectfully, JADE / JIGAR: [id number] /
[2023-12-25] MEDS: FLUoxetine HCL 20 MG CAP PO SCH (17:10)
--- NOTE | 2023-12-25 17:15 | P.HP ---
Psychiatric H&P - . H&P Date: 12/25/23 History & Physical: IDENTIFYING DATA: Patient is a 23 year old female with a history ADHD, depression, anxiety and cannabinoid hypoemesis syndrome. HPI: Patient presented to the hospital on 12/23/23 due to depression and suicidal thoughts. She denies suicidal plan or intent. She reports having racing thoughts and high anxiety. She reports a history of panic attacks, shortness of breath, sweating, feeling of impending doom, chest tightness, feeling like passing out, lightheaded. She reports chronic worrying that is difficult to control, restless/on edge, difficulty falling asleep and staying asleep, muscle tension, difficulty concentrating. She reports depressed mood, anhedonia, excessive guilt, low energy, low concentration, low appetite that is improving, some psychomotor slowing. She reports she continues to have suicidal thoughts today but denies plan or intent. She starts crying when talking about being away from her daughter. Patient denies any homicidal ideation, intent or plan. At this time patient denies any auditory or visual hallucinations. Patient denies any flight of ideas, increased in goal directed behavior. No history of manic episodes. Patient admits to history of using cannabis but quit 14 days ago. She drinks alcohol "occasionally". She smokes tobacco 0.5 ppd and uses nicotine vape. Current meds: Wellbutrin SR 100 mg daily - new medication Depakote ER 250 mg TID - new medication Haldol 4 mg QHS - new medication Adderall - being held currently - on/off since high school PAST PSYCHIATRIC HISTORY: Patient states that she's diagnosed with ADHD, depression, and anxiety. Psychiatric medications: current Wellbutrin SR, Depakote ER, Haldol, Adderall. She called her mother to help her recall past medication trials including Lexapro 10 mg (didn't take for long, 10 mg), Prozac 40 mg (better than the [place] apro), Effexor XR 75 mg daily (didn't like how it made her feel), Previous psychiatric hospitalizations: Reports this is her 4th hospitalization - includes twice as a minor. Most recent hospitalization was at [facility] from around 12/10/23- 12/16/23. Psychiatric outpatient follow-up: [facility] History of suicide attempts in the past: Denies PMH: Past Medical History: GERD/Reflux Additional Past Medical History / Comment(s): Abd pain, severe gastritis, cannabinoid hyperemesis syndrome History of Any Multi-Drug Resistant Organisms: None Reported Past Surgical History: Cholecystectomy Additional Past Surgical History / Comment(s): wisdom teeth removed, zoraida in august of 2018 Past Anesthesia/Blood Transfusion Reactions: No Reported Reaction Past Psychological History: Anxiety, Depression Smoking Status: Current every day smoker Past Alcohol Use History: Occasional Past Drug Use History: Marijuana ALLERGIES: as per EMR CHEMICAL DEPENDENCY HISTORY: as per HPI FAMILY PSYCHIATRIC/SUBSTANCE USE HISTORY: Brother with bipolar disorder SOCIAL HISTORY: Patient was born and raised in [place]. 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 Patient appears to have fair hygiene and grooming. Behavior: Patient is seated without any agitated behavior, fidgets, tearful. Speech: Patient's speech is fluent and non-pressured. Mood/Affect: Patient reports their mood is depressed, affect is tearful/sad. Suicidality/Homicidality: Patient denies having any homicidal ideation intent or plan. She reports suicidal ideation, without current intent or plan. Perceptions: Patient denies any visual hallucinations and denies any auditory hallucinations. Though content/process: There is no evidence of any delusional thought content and thought process is linear and goal-directed. Memory and concentration: AOX3, grossly intact for the purposes of this session. Can spell "WORLD" backwards Judgment and insight: fair, poor in regards to past mediation compliance STRENGTHS/WEAKNESSES: Strength is that patient is resilient. Weakness is that patient has history of medication noncompliance. INTELLECT: Average IMPRESSIONS: Major depressive disorder, recurrent, severe Generalized anxiety disorder with panic attacks Cannabis use disorder, in early remission, with cannabinoid hyperemesis syndrome Tobacco use disorder, mild PLAN: -Patient is admitted under voluntary status to [facility] for stabilization of psychiatric symptoms and safety. Patient has signed adult voluntary form and is placed in patient's chart. -Medications: Will start patient on Prozac 20 mg daily for depression/anxiety. Hold Adderall. Continue Wellbutrin SR 100 mg daily, Depakote ER 250 mg TID, and Haldol 4 mg QHS for cannabinoid hyperemesis syndrome. -Ativan and Haldol PRN for agitation/aggression -Patient was counselled on substance abuse and will plan to maintain sobriety. -Patient was informed of the risks, benefits and side effects of the medication and patient verbally consented to taking the medications. Patient signed med consent form and was placed in chart. -Internal Medicine consult to perform medical evaluation and physical. -NRT - nicotine patch -SW on board for discharge planning. Encourage patient to participate in groups to work on coping skills. Allergies Allergy/AdvReac Type Severity Reaction Status Date / Time cats Allergy runny Uncoded 12/23/23 22:50 nose, congestion, itching dust Allergy sneezing, Uncoded 12/23/23 22:50 rash mold Allergy congested, Uncoded 12/23/23 22:50 itchy, stuffy Vital Signs Temp 98.1 F 12/25/23 06:46 Pulse 106 H 12/25/23 06:46 Resp 18 12/25/23 06:46 BP 113/86 12/25/23 06:46 Pulse Ox 98 12/25/23 06:46 FiO2 Intake & Output 12/24/23 12/25/23 12/25/23 18:59 06:59 18:59 Weight 92.986 kg Laboratory Last Values WBC 7.7 k/uL (3.8-10.6) 12/24/23 10:47 RBC 4.92 m/uL (3.80-5.40) 12/24/23 10:47 Hgb 13.5 gm/dL (11.4-16.0) 12/24/23 10:47 Hct 40.3 % (34.0-46.0) 12/24/23 10:47 MCV 81.8 fL (80.0-100.0) 12/24/23 10:47 MCH 27.5 pg (25.0-35.0) 12/24/23 10:47 MCHC 33.6 g/dL (31.0-37.0) 12/24/23 10:47 RDW 14.7 % (11.5-15.5) 12/24/23 10:47 Plt Count 217 k/uL (150-450) 12/24/23 10:47 MPV 8.3 12/24/23 10:47 Neutrophils % 51 % 12/24/23 10:47 Lymphocytes % 37 % 12/24/23 10:47 Monocytes % 7 % 12/24/23 10:47 Eosinophils % 2 % 12/24/23 10:47 Basophils % 1 % 12/24/23 10:47 Neutrophils # 3.9 k/uL (1.3-7.7) 12/24/23 10:47 Lymphocytes # 2.8 k/uL (1.0-4.8) 12/24/23 10:47 Monocytes # 0.6 k/uL (0-1.0) 12/24/23 10:47 Eosinophils # 0.2 k/uL (0-0.7) 12/24/23 10:47 Basophils # 0.0 k/uL (0-0.2) 12/24/23 10:47 Sodium 139 mmol/L (137-145) 12/24/23 10:47 Potassium 4.2 mmol/L (3.5-5.1) 12/24/23 10:47 Chloride 107 mmol/L (98-107) 12/24/23 10:47 Carbon Dioxide 23 mmol/L (22-30) 12/24/23 10:47 Anion Gap 9 mmol/L 12/24/23 10:47 BUN 10 mg/dL (7-17) 12/24/23 10:47 Creatinine 0.57 mg/dL (0.52-1.04) 12/24/23 10:47 Est GFR (CKD-EPI)AfAm >90 (>60 ml/min/1.73 sqM) 12/24/23 10:47 Est GFR (CKD-EPI)NonAf >90 (>60 ml/min/1.73 sqM) 12/24/23 10:47 Glucose 98 mg/dL (74-99) 12/24/23 10:47 Calcium 9.1 mg/dL (8.4-10.2) 12/24/23 10:47 Total Bilirubin 0.6 mg/dL (0.2-1.3) 12/25/23 12:19 Conjugated Bilirubin 0.0 mg/dL (0.0-0.3) 12/25/23 12:19 Unconjugated Bilirubin 0.5 mg/dL (0.0-1.1) 12/25/23 12:19 Delta Bilirubin 0.1 mg/dL (0.0-0.2) 12/25/23 12:19 AST 26 U/L (14-36) 12/25/23 12:19 ALT 38 U/L (4-34) H 12/25/23 12:19 Alkaline Phosphatase 73 U/L (38-126) 12/25/23 12:19 Total Protein 6.7 g/dL (6.3-8.2) 12/25/23 12:19 Albumin 3.8 g/dL (3.5-5.0) 12/25/23 12:19 TSH 1.180 mIU/L (0.465-4.680) 12/25/23 12:19 Urine Color Light Yellow 12/24/23 10:47 Urine Appearance Clear (Clear) 12/24/23 10:47 Urine pH 6.5 (5.0-8.0) 12/24/23 10:47 Ur Specific [place] 1.013 (1.001-1.035) 12/24/23 10:47 Urine Protein Negative (Negative) 12/24/23 10:47 Urine Glucose (UA) Negative (Negative) 12/24/23 10:47 Urine Ketones Negative (Negative) 12/24/23 10:47 Urine Blood Negative (Negative) 12/24/23 10:47 Urine Nitrite Negative (Negative) 12/24/23 10:47 Urine Bilirubin Negative (Negative) 12/24/23 10:47 Urine Urobilinogen <2.0 mg/dL (<2.0) 12/24/23 10:47 Ur Leukocyte Esterase Trace (Negative) H 12/24/23 10:47 Urine RBC 1 /hpf (0-5) 12/24/23 10:47 Urine WBC 3 /hpf (0-5) 12/24/23 10:47 Ur Squamous Epith Cells 7 /hpf (0-4) H 12/24/23 10:47 Urine Bacteria Rare /hpf (None) H 12/24/23 10:47 Urine Mucus Occasional /hpf (None) H 12/24/23 10:47 Urine HCG, Qual Not Detected (Not Detectd) 12/24/23 10:47 Urine Opiates Screen Not Detected (NotDetected) 12/23/23 20:10 Ur Oxycodone Screen Not Detected (NotDetected) 12/23/23 20:10 Urine Methadone Screen Not Detected (NotDetected) 12/23/23 20:10 Ur Barbiturates Screen Not Detected (NotDetected) 12/23/23 20:10 U Tricyclic Antidepress Not Detected (NotDetected) 12/23/23 20:10 Ur Phencyclidine Scrn Not Detected (NotDetected) 12/23/23 20:10 Ur Amphetamines Screen Not Detected (NotDetected) 12/23/23 20:10 U Methamphetamines Scrn Not Detected (NotDetected) 12/23/23 20:10 U Benzodiazepines Scrn Not Detected (NotDetected) 12/23/23 20:10 Urine Cocaine Screen Not Detected (NotDetected) 12/23/23 20:10 U Marijuana (THC) Screen Detected (NotDetected) H 12/23/23 20:10 Influenza Type A (PCR) Not Detected (Not Detectd) 12/24/23 10:47 Influenza Type B (PCR) Not Detected (Not Detectd) 12/24/23 10:47 RSV (PCR) Not Detected (Not Detectd) 12/24/23 10:47 SARS-CoV-2 (PCR) Not Detected (Not Detectd) 12/24/23 10:47 12/25/23 15:59 12/25/23 16:34
[2023-12-25] MEDS: NICOTINE GUM (POLACRILEX) 2 MG GUM BUCCAL PRN (20:50)
[2023-12-25 23:32] LABS: Chol/HDL Ratio 5.08 Ratio
[2023-12-25 23:53] LABS: LDL Cholesterol,Calculated 111.2 mg/dL (0.0-131.0)
[2023-12-26] MEDS: NICOTINE 14MG/24HR PATCH TRANSDERM SCH (09:07)
--- NOTE | 2023-12-26 21:40 | P.PN ---
Progress Note - Text Progress Note Date: 12/26/23 Interval history: Patient was seen doing a hobby in the TV lounge and was directable and agreeable to speak with web content writer. She reports feeling a little bit better today, but still overall depressed and missing her daughter. She is tearful at times, but not as much as yesterday. She continues to experience suicidal thoughts on and off today, but denies intent or plan. She reports poor sleep last night. She denies homicidal ideation, intent or plan, denies auditory or visual hallucinations. Patient denies any side effects from the medications and has been compliant with meds. She received Ativan 1 mg po x 2 yesterday and 1 mg po x 2 again today. We discussed decreasing the dose of PRN Ativan and to avoid it unless absolutely needed since it is habit forming. We discussed starting Vistaril as needed for anxiety and she expresses understanding. We reviewed the risks of neural tube defects with the use of Depakote 250 mg TID that she is prescribed for the cannabinoid hyperemesis syndrome and she expressed understanding. She states she is not currently in a relationship and has no plans to become in the next year. She states she does not plan on being on the Depakote long-term and plans to taper off of it as an outpatient since it is prescribed for temporary relief of her cannabinoid hyperemesis syndrome. We discussed if she were to decide to become sexually active again, she would need to consult with her doctors and discontinue her Depakote. Mental status exam: General Appearance: Patient appears to be stated age, multiple tattoos on arms and chest. Patient appears to have adequate hygiene and grooming. Behavior: Patient is seated without any agitated behavior, tearful at times. Speech: Patient's speech is fluent and non-pressured. Mood/Affect: Patient reports their mood is depressed but a little bit better than yesterday, affect is tearful/sad on assessment. Suicidality/Homicidality: Patient denies having any homicidal ideation intent or plan. She reports suicidal ideation on and off today, without current intent or plan. Perceptions: Patient denies any visual hallucinations and denies any auditory hallucinations. Though content/process: There is no evidence of any delusional thought content and thought process is linear. Memory and concentration: AOX3, grossly intact for the purposes of this session Judgment and insight: improving mildly Assessment/Plan: Continue with current diagnosis. Patient continues to meet criteria for inpatient psychiatric admission for symptom stabilization and safety. Decrease Ativan to 0.5 mg Q6H PRN for anxiety Start Hydroxyzine 25 mg TID PRN for anxiety. Discussed risks of neural tube defects with Depakote as discussed above. She will be tapered off of the Depakote as an outpatient since this is prescribed for temporary relief of her cannabinoid hyperemesis syndrome. Monitor for medication compliance and for any psychotropic medication side effects. Will continue to monitor ongoing response to treatment. Encouraged participation in milieu.
[2023-12-26] MEDS: LORazepam 0.5 MG TAB PO PRN (23:32)
[2023-12-27] MEDS: hydrOXYzine HCL 25 MG TAB PO PRN (01:11)
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
[2023-12-27] MEDS: ONDANSETRON ODT 4 MG TAB PO PRN (16:00)
--- NOTE | 2023-12-28 11:38 | P.PN ---
Subjective Progress Note Date: 12/28/23 Principal diagnosis: Adjustment disorder with depressed mood Mood disorder unspecified Rule out bipolar disorder depressed type Rule out personality disorder unspecified Patient Name: Gaby Ivory Date of : [birth year] Patient Status: Inpatient Attending Provider: Lázaro Blackwood Date: 12/28/2023 Interval history: The patient was seen chart was reviewed and case discussed with the nursing staff Patient was quite pleasant with a wide range of affect Patient interacts fairly well Speech is clear coherent and relevant Patient however continues to complain mainly of insomnia problems and some anxiety and dysphoria but states that they are improving Denies any suicidal ideations or plans although staff had reported that she had some vague complaints of intermittent suicidal thoughts but no plans Mental status exam: General Appearance: Patient appears to be stated age, multiple tattoos on arms and chest. Patient appears to have adequate hygiene and grooming. Behavior: Patient is seated without any agitated behavior, Speech: Patient's speech is fluent and non-pressured. Mood/Affect: Patient reports their mood is depressed but a little bit better than yesterday, affect has improved Suicidality/Homicidality: Patient denies having any homicidal ideation intent or plan. She reports suicidal ideation on and off today, without current intent or plan. Perceptions: Patient denies any visual hallucinations and denies any auditory hallucinations. Though content/process: There is no evidence of any delusional thought content and thought process is linear. Memory and concentration: AOX3, grossly intact for the purposes of this session Judgment and insight: improving mildly Assessment/Plan: Continue with current diagnosis. Patient continues to meet criteria for inpatient psychiatric admission for symptom stabilization and safety. Decrease Ativan to 0.5 mg Q6H PRN for anxiety Start Hydroxyzine 25 mg TID PRN for anxiety. I also added trazodone 100 mg at bedtime for insomnia Discussed effects side effects Discussed risks of neural tube defects with Depakote as discussed above. She will be tapered off of the Depakote as an outpatient since this is prescribed for temporary relief of her cannabinoid hyperemesis syndrome. Monitor for medication compliance and for any psychotropic medication side effects. Will continue to monitor ongoing response to treatment. Encouraged participation in [facility]. Patel Flood M.D. Objective - Vital Signs Vital signs: Vital Signs Temp 98.1 F 12/28/23 01:44 Pulse 82 12/28/23 01:44 Resp 18 12/28/23 01:44 BP 130/71 12/28/23 01:44 Pulse Ox 99 12/28/23 01:44 FiO2 - Labs CBC & Chem 7: 12/24/23 10:47 12/24/23 10:47
[2023-12-28] MEDS: NICOTINE 21MG/24HR PATCH TRANSDERM SCH (11:46)
[2023-12-28] MEDS: MAGNESIUM HYDROXIDE 2,400 MG/30 ML CUP PO PRN (16:12)
[2023-12-28] MEDS: DOCUSATE 100 MG CAP PO PRN (17:03)
[2023-12-28] MEDS: traZODone HCL 100 MG TAB PO SCH (21:26)
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
[2023-12-30] MEDS ORDERED: METOCLOPRAMIDE 5 MG TAB PO PRN (14:47)
[2023-12-30] MEDS: METOCLOPRAMIDE 5 MG/ML 2 ML VIAL IM STA (14:56)
[2023-12-30] MEDS: haloperidoL 5 MG TAB PO PRN (15:30)
[2023-12-30 17:08] LABS: Glucose,Whole Blood 114 mg/dL (70-110)
[2023-12-30] MEDS: LORazepam 2 MG/ML INJ IM PRN (17:11)
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
[2023-12-31] MEDS: traZODone HCL 50 MG TAB PO PRN (20:52)
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
[2024-01-02] MEDS: traZODone HCL 50 MG TAB PO PRN (20:58)
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
[2024-01-05 09:25] VITALS: BP 108/58; PULSE 77; RESP 18; TEMP 97.4
--- NOTE | 2024-01-05 10:24 | P.DS ---
Providers Date of admission: 12/24/23 12:13 Expected date of discharge: 01/05/24 Attending physician: Lázaro Blackwood MD Consults: 12/24/23 12:24 Consult Physician Routine Consulting Provider: Lonny Cavanaugh Consult Reason/Comments: H & P W/MEDICATION/MEDICAL MANAGEMENT Do you want consulting provider notified?: Yes Primary care physician: Lonny Cavanaugh - Discharge Diagnosis(es) (1) Major depressive disorder, recurrent episode, severe Current Visit: Yes Status: Acute Priority: High (2) Generalized anxiety disorder with panic attacks Current Visit: Yes Status: Acute Priority: High (3) Cannabis use disorder Current Visit: Yes Status: Acute Priority: High (4) Tobacco use disorder Current Visit: Yes Status: Acute Priority: Low Hospital Course: Admission HPI: Admission note was completed by Dr Le "Patient presented to the hospital on 12/23/23 due to depression and suicidal thoughts. She denies suicidal plan or intent. She reports having racing thoughts and high anxiety. She reports a history of panic attacks, shortness of breath, sweating, feeling of impending doom, chest tightness, feeling like passing out, lightheaded. She reports chronic worrying that is difficult to control, restless/on edge, difficulty falling asleep and staying asleep, muscle tension, difficulty concentrating. She reports depressed mood, anhedonia, excessive guilt, low energy, low concentration, low appetite that is improving, some psychomotor slowing. She reports she continues to have suicidal thoughts today but denies plan or intent. She starts crying when talking about being away from her daughter. Patient denies any homicidal ideation, intent or plan. At this time patient denies any auditory or visual hallucinations. Patient denies any flight of ideas, increased in goal directed behavior. No history of manic episodes. Patient admits to history of using cannabis but quit 14 days ago. She drinks alcohol "occasionally". She smokes tobacco 0.5 ppd and uses nicotine vape. " Hospital course: Upon admission to the unit patient was directable and agreeable to commence treatment and signed adult voluntary form. Patient got along well with other patients on the unit and followed unit protocol. Patient was compliant with the medications and denied any side effects throughout hospital course. Patient was started on Vistaril as needed for anxiety, trazodone 75 to 100 mg nightly for insomnia/mood. Prozac was increased to a dose of 30 mg daily for mood/anxiety, patient was resumed back on her home dose of Haldol 4 mg nightly likely for antiemetic. Patient spoke of her stressors and engaged in therapy both group and individual. Patient was also seen by medical team for history and physical exam. Throughout the course of the hospitalization patient gradually improved with regards to mood, anxiety, sleep and became more future oriented with improved insight and judgment. On the day of discharge patient denied any suicidal or homicidal ideations intent or plan denied any auditory or visual hallucinations. Patient endorsed wanting to live for her health and her kids. The patient denied any access to guns or weapons. Patient denied any paranoia and did not endorse any delusions. Patient does have a significant history of substance abuse and was counseled on abstaining from all substances including alcohol and marijuana. Patient elected to do outpatient substance use treatment program through [facility]. Patient was also counseled on the medications and need for regular compliance and was encouraged to follow-up with their outpatient appointment for mental health and also for primary care. Prior to discharge a family meeting will be arranged by school social worker to answer any questions and ensure safety upon discharge. Mental status exam: General Appearance: Patient appears to be stated age is alert, pleasant, and cooperative. Patient is in no acute distress and has improved hygiene and grooming Behavior: Patient is calmly seated without any agitated behavior. Speech: Patient's speech is fluent and nonpressured. Mood/Affect: Patient reports their mood is "good", affect is congruent and euthymic. Suicidality/Homicidality: Patient denies having any suicidal or homicidal ideation intent or plan. Perceptions: Patient denies any auditory or visual hallucinations. Though content/process: There is no evidence of any delusional thought content and thought process is linear and goal-directed. Memory and concentration: AOX3, grossly intact for the purposes of this session. Can spell "WORLD" backwards correctly. Judgment and insight: Chronically poor, however has improved with guarded prognosis Impression: Major depressive disorder, recurrent, severe Generalized anxiety disorder with panic attacks Cannabis use disorder Tobacco use disorder Plan: -Continue with discharge today as patient has improved and stabilized psychiatrically and is not currently an imminent threat to herself and/or others. Patient will remain at chronically elevated risk for harm to self and/or others due to her impulsivity and substance abuse. -Continue medications: Prozac 30 mg daily for mood/anxiety, Vistaril twice daily as needed for anxiety, trazodone 75 - 100 mg nightly as needed for insomnia. Continue with home dose of Haldol mainly for antiemetic. -Patient was counseled on the need for medication compliance and appropriate follow-up at mental health and also primary care for medical issues. Patient verbalized understanding and agreed. -Social work to arrange for and conduct family meeting to ensure safety upon discharge and answer any questions/concerns. Social work also to arrange for patients follow up appointments with [facility] for psychiatric care along with follow up with primary care provider. -Patient counseled on abstaining from recreational drugs and marijuana and alcohol. Was informed/educated on the adverse effects on their physical and mental health. Patient verbally agreed and understood. -Patient was instructed to return to the hospital or seek immediate medical care if their psychiatric or medical symptoms do worsen or reoccur. Allergies Allergy/AdvReac Type Severity Reaction Status Date / Time cats Allergy runny Uncoded 12/23/23 22:50 nose, congestion, itching dust Allergy sneezing, Uncoded 12/23/23 22:50 rash mold Allergy congested, Uncoded 12/23/23 22:50 itchy, stuffy Laboratory Results WBC 7.7 k/uL (3.8-10.6) 12/24/23 10:47 RBC 4.92 m/uL (3.80-5.40) 12/24/23 10:47 Hgb 13.5 gm/dL (11.4-16.0) 12/24/23 10:47 Hct 40.3 % (34.0-46.0) 12/24/23 10:47 MCV 81.8 fL (80.0-100.0) 12/24/23 10:47 MCH 27.5 pg (25.0-35.0) 12/24/23 10:47 MCHC 33.6 g/dL (31.0-37.0) 12/24/23 10:47 RDW 14.7 % (11.5-15.5) 12/24/23 10:47 Plt Count 217 k/uL (150-450) 12/24/23 10:47 MPV 8.3 12/24/23 10:47 Neutrophils % 51 % 12/24/23 10:47 Lymphocytes % 37 % 12/24/23 10:47 Monocytes % 7 % 12/24/23 10:47 Eosinophils % 2 % 12/24/23 10:47 Basophils % 1 % 12/24/23 10:47 Neutrophils # 3.9 k/uL (1.3-7.7) 12/24/23 10:47 Lymphocytes # 2.8 k/uL (1.0-4.8) 12/24/23 10:47 Monocytes # 0.6 k/uL (0-1.0) 12/24/23 10:47 Eosinophils # 0.2 k/uL (0-0.7) 12/24/23 10:47 Basophils # 0.0 k/uL (0-0.2) 12/24/23 10:47 Sodium 139 mmol/L (137-145) 12/24/23 10:47 Potassium 4.2 mmol/L (3.5-5.1) 12/24/23 10:47 Chloride 107 mmol/L (98-107) 12/24/23 10:47 Carbon Dioxide 23 mmol/L (22-30) 12/24/23 10:47 Anion Gap 9 mmol/L 12/24/23 10:47 BUN 10 mg/dL (7-17) 12/24/23 10:47 Creatinine 0.57 mg/dL (0.52-1.04) 12/24/23 10:47 Est GFR (CKD-EPI)AfAm >90 (>60 ml/min/1.73 sqM) 12/24/23 10:47 Est GFR (CKD-EPI)NonAf >90 (>60 ml/min/1.73 sqM) 12/24/23 10:47 Glucose 98 mg/dL (74-99) 12/24/23 10:47 POC Glucose (mg/dL) 114 mg/dL (70-110) H 12/30/23 17:07 POC Glu Director Of Finance ID Marge Carpenter 12/30/23 17:[address] Glu mg/dL 131 mg/dL 12/25/23 12:19 Hemoglobin A1c 6.2 % (<=6.0) H 12/25/23 12:19 Calcium 9.1 mg/dL (8.4-10.2) 12/24/23 10:47 Total Bilirubin 0.6 mg/dL (0.2-1.3) 12/25/23 12:19 Conjugated Bilirubin 0.0 mg/dL (0.0-0.3) 12/25/23 12:19 Unconjugated Bilirubin 0.5 mg/dL (0.0-1.1) 12/25/23 12:19 Delta Bilirubin 0.1 mg/dL (0.0-0.2) 12/25/23 12:19 AST 26 U/L (14-36) 12/25/23 12:19 ALT 38 U/L (4-34) H 12/25/23 12:19 Alkaline Phosphatase 73 U/L (38-126) 12/25/23 12:19 Total Protein 6.7 g/dL (6.3-8.2) 12/25/23 12:19 Albumin 3.8 g/dL (3.5-5.0) 12/25/23 12:19 Triglycerides 171.00 mg/dL (0.00-149.00) H 12/25/23 12:19 Cholesterol 181.00 mg/dL (0.00-200.00) 12/25/23 12:19 LDL Cholesterol, Calc 111.2 mg/dL (0.0-131.0) 12/25/23 12:19 VLDL Cholesterol, Calc 34.20 mg/dL (5.00-40.00) 12/25/23 12:19 HDL Cholesterol 35.60 mg/dL (40.00-60.00) L 12/25/23 12:19 Cholesterol/HDL Ratio 5.08 Ratio 12/25/23 12:19 TSH 1.180 mIU/L (0.465-4.680) 12/25/23 12:19 Urine Color Light Yellow 12/24/23 10:47 Urine Appearance Clear (Clear) 12/24/23 10:47 Urine pH 6.5 (5.0-8.0) 12/24/23 10:47 Ur Specific [place] 1.013 (1.001-1.035) 12/24/23 10:47 Urine Protein Negative (Negative) 12/24/23 10:47 Urine Glucose (UA) Negative (Negative) 12/24/23 10:47 Urine Ketones Negative (Negative) 12/24/23 10:47 Urine Blood Negative (Negative) 12/24/23 10:47 Urine Nitrite Negative (Negative) 12/24/23 10:47 Urine Bilirubin Negative (Negative) 12/24/23 10:47 Urine Urobilinogen <2.0 mg/dL (<2.0) 12/24/23 10:47 Ur Leukocyte Esterase Trace (Negative) H 12/24/23 10:47 Urine RBC 1 /hpf (0-5) 12/24/23 10:47 Urine WBC 3 /hpf (0-5) 12/24/23 10:47 Ur Squamous Epith Cells 7 /hpf (0-4) H 12/24/23 10:47 Urine Bacteria Rare /hpf (None) H 12/24/23 10:47 Urine Mucus Occasional /hpf (None) H 12/24/23 10:47 Urine HCG, Qual Not Detected (Not Detectd) 12/24/23 10:47 Urine Opiates Screen Not Detected (NotDetected) 12/23/23 20:10 Ur Oxycodone Screen Not Detected (NotDetected) 12/23/23 20:10 Urine Methadone Screen Not Detected (NotDetected) 12/23/23 20:10 Ur Barbiturates Screen Not Detected (NotDetected) 12/23/23 20:10 U Tricyclic Antidepress Not Detected (NotDetected) 12/23/23 20:10 Ur Phencyclidine Scrn Not Detected (NotDetected) 12/23/23 20:10 Ur Amphetamines Screen Not Detected (NotDetected) 12/23/23 20:10 U Methamphetamines Scrn Not Detected (NotDetected) 12/23/23 20:10 U Benzodiazepines Scrn Not Detected (NotDetected) 12/23/23 20:10 Urine Cocaine Screen Not Detected (NotDetected) 12/23/23 20:10 U Marijuana (THC) Screen Detected (NotDetected) H 12/23/23 20:10 Influenza Type A (PCR) Not Detected (Not Detectd) 12/24/23 10:47 Influenza Type B (PCR) Not Detected (Not Detectd) 12/24/23 10:47 RSV (PCR) Not Detected (Not Detectd) 12/24/23 10:47 SARS-CoV-2 (PCR) Not Detected (Not Detectd) 12/24/23 10:47 Vital Signs Temp 97.4 F L 01/05/24 09:00 Pulse 77 01/05/24 09:00 Resp 18 01/05/24 09:00 BP 108/58 01/05/24 09:00 Pulse Ox 98 01/02/24 06:56 FiO2 Patient Condition at Discharge: Stable Plan - Discharge Summary Discharge Rx Participant: Yes New Discharge Prescriptions: New traZODone HCL [Desyrel] 75 - 100 mg PO HS PRN 14 Days #28 tab PRN Reason: Insomnia Nicotine 21Mg/24Hr Patch [Habitrol] 1 patch TRANSDERM DAILY 14 Days #14 patch Ondansetron Odt [Zofran ODT] 4 mg PO BID PRN 7 Days #14 tab PRN Reason: Nausea hydrOXYzine HCL [Atarax] 50 mg PO BID PRN 14 Days #28 tab PRN Reason: Anxiety Docusate [Colace] 100 mg PO DAILY PRN cap PRN Reason: Constipation Ibuprofen [Motrin] 600 mg PO Q6HR PRN tab PRN Reason: Moderate Pain (Scale 4 To 6) Nicotine Gum (Polacrilex) [Nicorette] 2 mg BUCCAL Q4HR PRN pieceofgum PRN Reason: Nicotine Cravings FLUoxetine HCL [PROzac] 30 mg PO DAILY 14 Days #42 capsule Continue Omeprazole 40 mg PO BID Fluticasone Nasal [place] [Flonase Nasal [place]] 1 spray EA NOSTRIL DAILY Cetirizine HCl [Zyrtec] 10 mg PO DAILY 30 Days #30 tab haloperidoL 4 mg PO HS 14 Days #56 tab Discontinued buPROPion HCL [buPROPion HCL SR] 100 mg PO DAILY Dextroamphetamine/Amphetamine [Adderall Xr 20 mg Capsule] 40 mg PO DAILY Divalproex ER [Depakote ER] 250 mg PO TID Discharge Medication List Omeprazole 40 mg PO BID 05/15/21 [History] Fluticasone Nasal [place] [Flonase Nasal [place]] 1 spray EA NOSTRIL DAILY 12/10/23 [History] Cetirizine HCl [Zyrtec] 10 mg PO DAILY 30 Days #30 tab 01/05/24 [Rx] Docusate [Colace] 100 mg PO DAILY PRN cap 01/05/24 [Rx] FLUoxetine HCL [PROzac] 30 mg PO DAILY 14 Days #42 capsule 01/05/24 [Rx] Ibuprofen [Motrin] 600 mg PO Q6HR PRN tab 01/05/24 [Rx] Nicotine 21Mg/24Hr Patch [Habitrol] 1 patch TRANSDERM DAILY 14 Days #14 patch 01/05/24 [Rx] Nicotine Gum (Polacrilex) [Nicorette] 2 mg BUCCAL Q4HR PRN pieceofgum 01/05/24 [Rx] Ondansetron Odt [Zofran ODT] 4 mg PO BID PRN 7 Days #14 tab 01/05/24 [Rx] haloperidoL 4 mg PO HS 14 Days #56 tab 01/05/24 [Rx] hydrOXYzine HCL [Atarax] 50 mg PO BID PRN 14 Days #28 tab 01/05/24 [Rx] traZODone HCL [Desyrel] 75 - 100 mg PO HS PRN 14 Days #28 tab 01/05/24 [Rx] Follow up Appointment(s)/Referral(s): Lonny Cavanaugh MD [Primary Care Provider] - 1-2 days Activity/Diet/Wound Care/Special Instructions: Avoid the use of street drugs and alcohol. Take all medications as prescribed. When you are in need of refills on your medications, please contact your medical provider and/or outpatient psychiatrist/provider to have this done. Please go to your scheduled outpatient appointment for aftercare treatment. If symptoms return or become worse, call the crisis line at and/or go to the nearest emergency room for evaluation. National Suicide Hotline 368. Discharge Disposition: HOME SELF-CARE
== END 2024-01-05 13:30 | disposition home or self-care (01) | DRG 751 ==
LOC: EC 16:09 → 3MHU 12-24 12:13
PROVIDERS: ADMIT Psychiatry & Neurology Psychiatry; ATTEND Psychiatry & Neurology Psychiatry
DX: F33.2 Major depressive disorder, recurrent severe without psychotic features (principal); F12.11 Cannabis abuse, in remission; F17.210 Nicotine dependence, cigarettes, uncomplicated; F17.290 Nicotine dependence, other tobacco product, uncomplicated; F41.0 Panic disorder [episodic paroxysmal anxiety]; F41.1 Generalized anxiety disorder; R11.10 Vomiting, unspecified; R45.1 Restlessness and agitation; F90.9 Attention-deficit hyperactivity disorder, unspecified type; R41.843 Psychomotor deficit; F43.10 Post-traumatic stress disorder, unspecified; M54.50 Low back pain, unspecified; F43.21 Adjustment disorder with depressed mood; G47.00 Insomnia, unspecified; R45.851 Suicidal ideations; Z79.899 Other long term (current) drug therapy; Z81.8 Family history of other mental and behavioral disorders; Z71.51 Drug abuse counseling and surveillance of drug abuser; Z71.89 Other specified counseling; Z11.52 Encounter for screening for COVID-19; Z28.21 Immunization not carried out because of patient refusal; K21.9 Gastro-esophageal reflux disease without esophagitis
CPT/HCPCS: 36415; 80053; 80061; 80076; 80306; 81001; 81025; 82075; 83036; 84443; 85025; 87636; 99285

== ENCOUNTER 2024-09-26 13:50 | Inpatient (IN) | payer MEDICAID, OTHER ==
--- NOTE | 2024-09-26 14:44 | ED ---
General Adult HPI - General Chief complaint: Psychiatric Symptoms Stated complaint: mental health Time Seen by Provider: 09/26/24 14:29 Source: patient, RN notes reviewed Mode of arrival: ambulatory Limitations: altered mental status - History of Present Illness Initial comments: Patient is a 24-year-old female presenting to the emergency department with depression and suicidal thoughts. Patient did abrade her right thigh. Tetanus immunization is up-to-date. Patient feels her meds are not working. No homicidal thoughts. No alcohol or street drug use. Patient has not been sleeping well. No hallucinations. - Related Data Home Medications Medication Instructions Recorded Confirmed Omeprazole 40 mg PO BID 05/15/21 12/23/23 Fluticasone Nasal [place] [Flonase 1 spray EA NOSTRIL DAILY 12/10/23 12/23/23 Nasal [place]] Previous Rx's Medication Instructions Recorded Cetirizine HCl [Zyrtec] 10 mg PO DAILY 30 Days #30 tab 01/05/24 Docusate [Colace] 100 mg PO DAILY PRN cap 01/05/24 FLUoxetine HCL [PROzac] 30 mg PO DAILY 14 Days #42 capsule 01/05/24 Ibuprofen [Motrin] 600 mg PO Q6HR PRN tab 01/05/24 Nicotine 21Mg/24Hr Patch [Habitrol] 1 patch TRANSDERM DAILY 14 Days 01/05/24 #14 patch Nicotine Gum (Polacrilex) 2 mg BUCCAL Q4HR PRN pieceofgum 01/05/24 [Nicorette] Ondansetron Odt [Zofran ODT] 4 mg PO BID PRN 7 Days #14 tab 01/05/24 haloperidoL 4 mg PO HS 14 Days #56 tab 01/05/24 hydrOXYzine HCL [Atarax] 50 mg PO BID PRN 14 Days #28 tab 01/05/24 traZODone HCL [Desyrel] 75 - 100 mg PO HS PRN 14 Days #28 01/05/24 tab Allergies Allergy/AdvReac Type Severity Reaction Status Date / Time cats Allergy runny Uncoded 12/23/23 22:50 nose, congestion, itching dust Allergy sneezing, Uncoded 12/23/23 22:50 rash mold Allergy congested, Uncoded 12/23/23 22:50 itchy, stuffy Review of Systems ROS Statement: Those systems with pertinent positive or pertinent negative responses have been documented in the HPI. ROS Other: All systems not noted in ROS Statement are negative. Constitutional: Denies: fever Eyes: Denies: eye pain ENT: Denies: ear pain Respiratory: Denies: cough Cardiovascular: Denies: chest pain Gastrointestinal: Denies: abdominal pain Psychiatric: Reports: as per HPI, depression, suicidal thoughts Past Medical History Past Medical History: GERD/Reflux Additional Past Medical History / Comment(s): Abd pain, severe gastritis, cannabinoid hyperemesis syndrome History of Any Multi-Drug Resistant Organisms: None Reported Past Surgical History: Cholecystectomy Additional Past Surgical History / Comment(s): wisdom teeth removed, zoraida in august of 2018 Past Anesthesia/Blood Transfusion Reactions: No Reported Reaction Past Psychological History: Anxiety, Depression Smoking Status: Current every day smoker Past Alcohol Use History: None Reported, Occasional Past Drug Use History: Marijuana - Past Family History Mother Family Medical History: Asthma General Exam Limitations: altered mental status General appearance: alert, in no apparent distress Head exam: Present: normocephalic Eye exam: Present: normal appearance Neck exam: Present: normal inspection Respiratory exam: Present: normal lung sounds bilaterally Cardiovascular Exam: Present: regular rate, normal rhythm GI/Abdominal exam: Present: soft. Absent: tenderness Extremities exam: Present: other (Right thigh abrasion) Neurological exam: Absent: motor sensory deficit Psychiatric exam: Present: flat affect Skin exam: Present: abrasion Course Vital Signs 09/26/24 13:56 Temperature 98.3 F Pulse Rate 96 Respiratory 18 Rate Blood Pressure 136/85 O2 Sat by Pulse 98 Oximetry Medical Decision Making - Medical Decision Making Was pt. sent in by a medical professional or institution (CHRISTINE Daly, THIRD HELPER, urgent care, hospital, or longterm...) When possible be specific @ -No Did you speak to anyone other than the patient for history (EMS, parent, family, police, friend...)? What history was obtained from this source @ -No Did you review nursing and triage notes (agree or disagree)? Why? @ -I reviewed and agree with nursing and triage notes Were old charts reviewed (outside hosp., previous admission, EMS record, old EKG, old radiological studies, urgent care reports/EKG's, longterm records)? Report findings @ -No old charts were reviewed Differential Diagnosis (chest pain, altered mental status, abdominal pain women, abdominal pain men, vaginal bleeding, weakness, fever, dyspnea, syncope, headache, dizziness, GI bleed, back pain, seizure, CVA, palpatations, mental health, musculoskeletal)? @ -Differential Mental Health Depression, anxiety, bipolar, psychosis, schizophrenia, borderline personality, situational depression, adjustment disorder, behavioral disorder, brain tumor, malingering, substance abuse, encephalopathy, medication reaction, dementia, hyp othyroidism, degenerative neurologic disorder, lupus.... This is not meant to be all-inclusive list EKG interpreted by me (3pts min.). @ -As above X-rays interpreted by me (1pt min.). @ -None done CT interpreted by me (1pt min.). @ -None done U/S interpreted by me (1pt. min.). @ -None done What testing was considered but not performed or refused? (CT, X-rays, U/S, labs)? Why? @ -None What meds were considered but not given or refused? Why? @ -None Did you discuss the management of the patient with other professionals (professionals i.e. , PA, THIRD HELPER, lab, RT, psych nurse, elementary school social worker, plant care worker, teacher, bomb squad officer, human services case manager)? Give summary @ -Case was discussed with psychiatric nurse with plans for admission Was smoking cessation discussed for >3mins.? @ -No Was critical care preformed (if so, how long)? @ -No Were there social determinants of health that impacted care today? How? (Homelessness, low income, unemployed, alcoholism, drug addiction, transportation, low edu. Level, literacy, decrease access to med. care, long-term, rehab)? @ -No Was there de-escalation of care discussed even if they declined (Discuss DNR or withdrawal of care, Hospice)? DNR status @ -No What co-morbidities impacted this encounter? (DM, HTN, Smoking, COPD, CAD, Cancer, CVA, ARF, Chemo, Hep., AIDS, mental health diagnosis, sleep apnea, morbid obesity)? @ -None Was patient admitted / discharged? Hospital course, mention meds given and route, prescriptions, significant lab abnormalities, going to OR and other pertinent info. @ -Patient presents with depression and suicidal thoughts with suicidal gesture. Patient will be admitted for psychiatric care Undiagnosed new problem with uncertain prognosis? @ -No Drug Therapy requiring intensive monitoring for toxicity (Heparin, Nitro, I nsulin, Cardizem)? @ -No Were any procedures done? @ -No Diagnosis/symptom? @ -Depression, suicidal ideation Acute, or Chronic, or Acute on Chronic? @ -Acute, acute Uncomplicated (without systemic symptoms) or Complicated (systemic symptoms)? @ -Default Side effects of treatment? @ -No Exacerbation, Progression, or Severe Exacerbation? @ -No Poses a threat to life or bodily function? How? (Chest pain, [place], [place], pneumonia, PE, COPD, DKA, ARF, appy, cholecystitis, CVA, Diverticulitis, Homicidal, Suicidal, threat to staff... and all critical care pts) @ -No - Lab Data Lab Results 09/26/24 09/26/24 Range/Units 15:13 16:00 Urine Opiates Screen Not Detected (NotDetected) Ur Oxycodone Screen Not Detected (NotDetected) Urine Methadone Screen Not Detected (NotDetected) Ur Barbiturates Screen Not Detected (NotDetected) U Tricyclic Antidepress Not Detected (NotDetected) Ur Phencyclidine Scrn Not Detected (NotDetected) Ur Amphetamines Screen Not Detected (NotDetected) U Methamphetamines Scrn Not Detected (NotDetected) U Benzodiazepines Scrn Detected H (NotDetected) Urine Cocaine Screen Not Detected (NotDetected) U Marijuana (THC) Screen Not Detected (NotDetected) SARS-CoV-2 (PCR) Not Detected (Not Detectd) Disposition Clinical Impression: Depression, Suicidal ideation Disposition: TRANSFER TO PSYCH HOSP/UNIT Is patient prescribed a controlled substance at d/c from ED?: No Referrals: Lonny Cavanaugh MD [Primary Care Provider] - 1-2 days Time of Disposition: 16:50
[2024-09-26 15:57] LABS: Amphetamine Screen,Urine Not Detected (NotDetected); Barbiturate Screen,Urine Not Detected (NotDetected); Benzodiazepines Screen,Urine Detected (NotDetected); Cocaine Screen,Urine Not Detected (NotDetected); Methadone Screen, Urine Not Detected (NotDetected); Opiate Screen,Urine Not Detected (NotDetected); Oxycodone Screen, Urine Not Detected (NotDetected); Phencyclidine Screen,Urine Not Detected (NotDetected); Tricyclic Antidepressant,Urine Not Detected (NotDetected); Urn Cannabinoid Scrn Not Detected (NotDetected)
[2024-09-26] MEDS: LORazepam 1 MG TAB PO STA (16:29)
[2024-09-26] MEDS ORDERED: hydrOXYzine HCL 50 MG/ML 1 ML VIAL IM PRN (17:19)
[2024-09-26] MEDS ORDERED: MAG HYDROX/AL HYDROX/SIMETH 355 ML BOTTLE PO PRN (17:19)
[2024-09-26] MEDS ORDERED: haloperidoL 5 MG TAB PO PRN (17:19)
[2024-09-26] MEDS ORDERED: HALOPERIDOL LACTATE 5 MG/ML 1 ML VIAL IM PRN (17:19)
[2024-09-26] MEDS ORDERED: MAGNESIUM HYDROXIDE 2,400 MG/30 ML CUP PO PRN (17:19)
[2024-09-26 17:35] LABS: Appearance,Urine Cloudy (Clear); Bacteria,Urine Rare /hpf; Bilirubin,Urine Negative (Negative); Blood,Urine Negative (Negative); Color,Urine Colorless; Glucose,Urine (UA) Negative (Negative); Ketones,Urine Negative (Negative); Leukocyte Esterase,Urine Moderate (Negative); Mucus,Urine Rare /hpf; Nitrite,Urine Negative (Negative); Protein,Urine Negative (Negative); RBC,Urine 2 /hpf (0-5); Specific Gravity,Urine 1.025 (1.001-1.035); Squamous Epithelial Cell,Urine 37 /hpf (0-4); Urobilinogen,Urine <2.0 mg/dL (<2.0); WBC,Urine 4 /hpf (0-5)
[2024-09-26] MEDS: hydrOXYzine HCL 25 MG TAB PO PRN (19:01)
[2024-09-26] MEDS: PANTOPRAZOLE 40 MG TABLET PO SCH (20:55)
[2024-09-26] MEDS: MELATONIN 5 MG TABLET PO SCH (21:28)
[2024-09-27] MEDS: NICOTINE 21MG/24HR PATCH TRANSDERM SCH (05:32)
[2024-09-27 08:05] LABS: Basophils # (A) 0.1 k/uL (0-0.2); Basophils % (A) 1 %; Eosinophils # (A) 0.1 k/uL (0-0.7); Eosinophils % (A) 1 %; HCT 43.4 % (34.0-46.0); HGB 13.9 gm/dL (11.4-16.0); Lymphocytes # (A) 3.4 k/uL (1.0-4.8); Lymphocytes % (A) 36 %; MCHC 32.1 g/dL (31.0-37.0); MCV 80.9 fL (80.0-100.0); Monocytes # (A) 0.5 k/uL (0-1.0); Monocytes % (A) 5 %; Neutrophils % (A) 54 %; Platelet Count 307 k/uL (150-450); RBC 5.36 m/uL (3.80-5.40); RDW 13.2 % (11.5-15.5); WBC 9.3 k/uL (3.8-10.6)
[2024-09-27 08:40] LABS: ALT 25 U/L (4-34); AST 25 U/L (14-36); African American GFR (CKD) >90 (>60 ml/min/1.73 sqM); Albumin 4.3 g/dL (3.5-5.0); Alkaline Phosphatase 83 U/L (38-126); Anion Gap 10 mmol/L; Bilirubin, Delta 0.1 mg/dL (0.0-0.2); Bilirubin,Unconjugated 0.8 mg/dL (0.0-1.1); Blood Urea Nitrogen 14 mg/dL (7-17); Calcium 9.3 mg/dL (8.4-10.2); Carbon Dioxide 26 mmol/L (22-30); Chloride 100 mmol/L (98-107); Glucose 106 mg/dL (74-99); Non-African American GFR(CKD) >90 (>60 ml/min/1.73 sqM); Potassium 4.3 mmol/L (3.5-5.1); Sodium 136 mmol/L (137-145); Total Bilirubin 0.9 mg/dL (0.2-1.3); Total Protein 7.6 g/dL (6.3-8.2)
[2024-09-27] MEDS: FLUoxetine HCL 10 MG CAP PO SCH (08:58)
[2024-09-27] MEDS: IBUPROFEN 600 MG TAB PO PRN (11:15)
[2024-09-27] MEDS: FLUoxetine HCL 20 MG CAP PO STA (11:15)
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
[2024-09-27 15:26] LABS: Chol/HDL Ratio 3.45 Ratio; LDL Cholesterol,Calculated 128.9 mg/dL (0.0-131.0)
[2024-09-27] MEDS: ACETAMINOPHEN TAB 325 MG TAB PO PRN (21:04)
[2024-09-27] MEDS: hydrOXYzine pamoate 25 MG CAP PO SCH (21:05)
[2024-09-28] MEDS: BENZOCAINE/MENTHOL LOZENG 1 EACH LOZENGE MUCOUS MEM PRN (05:52)
--- NOTE | 2024-09-28 07:46 | CONS ---
CONSULTATION CHIEF COMPLAINT: Major depression. HISTORY OF PRESENT ILLNESS: This 24-year-old came to the emergency room depressed and claiming that she wanted to . She has been, otherwise, healthy. Past medical history, family history, personal and social histories are found in her admitting summary. PHYSICAL EXAMINATION: VITAL SIGNS: Normal. HEAD, EARS, EYES, NOSE, MOUTH, AND THROAT: Normal. CHEST: Clear. CARDIAC: Normal. ABDOMEN: Soft. IMPRESSION: Major depression with suicidal thoughts. RECOMMENDATIONS: None at this time. Thank you respectfully, JADE / JIGAR: [id number] /
[2024-09-28] MEDS: FLUoxetine HCL 20 MG CAP PO SCH (08:52)
[2024-09-28] MEDS: PROPRANOLOL 20 MG TAB PO SCH (10:07)
[2024-09-28] MEDS: hydrOXYzine HCL 25 MG TAB PO PRN (10:08)
--- NOTE | 2024-09-28 11:54 | P.PN ---
Progress Note - Text Progress Note Date: 09/28/24 Interval History: Patient was seen wandering the hallways and was directable and agreeable to sp guillermo with singer songwriter in the office. She states feeling "hopeless" today, directly related to her being away from her daughter most of the year due to both mental health and rehab. She states she was able to have her daughter at [facility] and is struggling being away from her again now. She reports sleeping difficulties described as not being able to stay asleep. She reports high anxiety however was able to recognize that she was previously on a higher dose of as needed hydroxyzine at home than what she has prescribed here now. She is open to trying alternative medications to help with her anxiety as she feels like this is worse than her depression today. She continues to report suicidal ideations, no plan and same intensity as yesterday. At this time patient denies any homicidal ideations, intent or plan. Patient denies any auditory, visual hallucinations and denies any paranoia or delusions. Patient denies any side effects from the medications and has been compliant with meds. Mental Status Exam: General Appearance: Patient appears to be stated age is alert, directable, and cooperative. Behavior: Patient is calmly seated without any agitated behavior. She is less tearful today Speech: Patient's speech is fluent and nonpressured. Mood/Affect: Mood is "depressed", affect is incongruent and blunted. Suicidality/Homicidality: Patient reports suicidal ideations, no plan but denies having any homicidal ideation intent or plan. Perceptions: Patient denies any visual hallucinations and denies any auditory hallucinations Though content/process: There is no evidence of any delusional thought content and thought process is linear and goal-directed. Memory and concentration: AOX3, grossly intact for the purposes of this session Judgment and insight: Improving mildly Assessment Major depressive disorder, recurrent Generalized anxiety disorder Polysubstance use disorder (cocaine, psychedelics, opiates, cannabis, alcohol), in early remission Nicotine dependence Plan: -Patient continues to meet criteria for inpatient psychiatric admission for symptom stabilization and safety. Patient has signed adult voluntary form and medication consent and was placed in patient's chart. -Medications: Continue Prozac 60 mg daily for depression/anxiety, increase Vistaril to 100 mg at bedtime for sleep, start propranolol 20 mg twice daily for anxiety, increase as needed Atarax to 50 mg for anxiety -When necessary Atarax and Haldol for agitation/aggression. -Labs: Reviewed -NRT -nicotine patch -SW on board for discharge planning. Encouraged the patient to participate in milieu.
[2024-09-28] MEDS: hydrOXYzine pamoate 25 MG CAP PO SCH (20:52)
[2024-09-29] MEDS: FLUoxetine HCL 20 MG CAP PO SCH (09:08)
--- NOTE | 2024-09-29 12:54 | P.PN ---
Progress Note - Text Progress Note Date: 09/29/24 Interval History: Patient was seen wandering the hallways and was directable and agreeable to sp guillermo with resume writer in the office. She continues to report high depression and anxiety today, feelings of hopelessness. She reports difficulty staying asleep overnight which she feels like is impacting her mood. She states anxiety is an 8.5/10 today in severity and she does not feel any relief with as needed hydroxyzine. Patient was encouraged to speak with her PCP regarding sleep study given her chronic long-term issues with sleep despite being on several medications for insomnia. Patient otherwise has been attending groups and tending to her ADLs. She reports suicidal thoughts, no plan or intent. At this time patient denies any homicidal ideations, intent or plan. Patient denies any auditory, visual hallucinations and denies any paranoia or delusions. Patient denies any side effects from the medications and has been compliant with meds. Mental Status Exam: General Appearance: Patient appears to be stated age is alert, directable, and cooperative. Behavior: Patient is calmly seated without any agitated behavior. Speech: Patient's speech is fluent and nonpressured. Mood/Affect: Mood is "anxious", affect is incongruent and reactive. Suicidality/Homicidality: Patient reports suicidal ideations, no plan or intent but denies any homicidal ideation intent or plan. Perceptions: Patient denies any visual hallucinations and denies any auditory hallucinations Though content/process: There is no evidence of any delusional thought content and thought process is linear and logical. Memory and concentration: AOX3, grossly intact for the purposes of this session Judgment and insight: Improving mildly Assessment Major depressive disorder, recurrent Generalized anxiety disorder Polysubstance use disorder (cocaine, psychedelics, opiates, cannabis, alcohol), in early remission Nicotine dependence Plan: -Patient continues to meet criteria for inpatient psychiatric admission for symptom stabilization and safety. Patient has signed adult voluntary form and medication consent and was placed in patient's chart. -Medications: Start Remeron 7.5 mg at bedtime for sleep/depression/anxiety, Prozac increased today to 80 mg daily for depression/anxiety, continue Vistaril 100 mg at bedtime for sleep, propranolol 20 mg twice daily for anxiety -When necessary Atarax and Haldol for agitation/aggression. -Labs: Reviewed -NRT -nicotine patch -SW on board for discharge planning. Encouraged the patient to participate in milieu.
[2024-09-29] MEDS: NEOMYCIN-BACITRACIN-POLY OINT 14 GM TUBE TOPICAL PRN (17:50)
[2024-09-29] MEDS: MIRTAZAPINE 15 MG TAB PO SCH (21:04)
[2024-09-30] MEDS: PROPRANOLOL 20 MG TAB PO STA (14:19)
--- NOTE | 2024-09-30 18:53 | P.PN ---
Progress Note - Text Interval History: Patient was seen in the hallway and was directable and agreeable to speak with typewriter mechanic in the office. She reports having had difficulty falling asleep again last night she felt her experience of restless legs was increased last night. She did think the Remeron was helpful with promoting drowsiness but is concerned that it may be making the restless legs worse. Additionally she describes feeling anxious today she was anticipating a visit from her mom; they have a complicated relationship dynamic, but mom ended up not coming as she was not able to find a sitter for patient's daughter. We discussed all of her chronic sleep problems and she notes having frequent night wakings during which she feels like she is falling. If left unassisted it would take her several hours to fall asleep and this has been a chronic and consistent pattern for many years for her and also several family members. He has noticed that her anxiety seems to be heightened in general before lunchtime; we discussed making changes to the timing of her propranolol to more align with when her symptoms seem to increase. At this time patient denies homicidal ideations, intent or plan. She does endorse experiencing suicidal ideation, though states "I do not want to ", and denies identified method, intent, or plan. She feels that these thoughts are ego dystonic and intrusive. Patient denies any auditory, visual hallucinations and denies any paranoia or delusions. Patient has been compliant with meds. Mental Status Exam: General Appearance: Patient appears to be stated age is alert, directable, and cooperative. Behavior: Patient is calmly seated without any agitated behavior. Speech: Patient's speech is fluent and nonpressured. Mood/Affect: Mood is anxious", affect is congruent and constricted. Suicidality/Homicidality: Patient denies having homicidal ideation, intent, or plan. She does report ego-dystonic suicidal ideation; no identified method, intent, or plan Perceptions: Patient denies any visual hallucinations and denies any auditory hallucinations Though content/process: There is no evidence of any delusional thought content and thought process is linear and goal-directed. Memory and concentration: AOX3, grossly intact for the purposes of this session Judgment and insight: Improving mildly Assessment Major depressive disorder, recurrent Generalized anxiety disorder Polysubstance use disorder (cocaine, psychedelics, opiates, cannabis, alcohol), in early remission Nicotine dependence Plan: -Patient continues to meet criteria for inpatient psychiatric admission for symptom stabilization and safety. Patient has signed adult voluntary form and medication consent and was placed in patient's chart. -Medications: - Continue Remeron 7.5 mg at bedtime for sleep/depression/anxiety - Continue Prozac 80 mg daily for depression/anxiety (increased on 09/29/24) - Continue Vistaril 100 mg at bedtime for sleep - Continue propranolol 20 mg twice daily for anxiety (will adjust timing of morning dose to align with increasing anxiety symptoms) -When necessary Atarax and Haldol for agitation/aggression. -Labs: No new labs -NRT -nicotine patch -SW on board for discharge planning. Encouraged the patient to participate in milieu.
[2024-10-01] MEDS ORDERED: PANTOPRAZOLE 40 MG TABLET PO SCH ×2 (11:00→17:30)
[2024-10-01] MEDS: PROPRANOLOL 20 MG TAB PO SCH (11:49)
--- NOTE | 2024-10-01 14:24 | P.PN ---
Progress Note - Text Interval History: Patient was seen while resting and was directable and agreeable to speak with publications writer. She describes her mood as "anxious" and has been feeling "achy" today. She accidentally left her nicotine patch on overnight and had bad dreams that were extremely vivid. She ended up waking up and remove the patch. Additionally while she was feeling drowsy and felt able to fall asleep she did notice ongoing issues with restless legs and even felt some of the restless sensation in her arms as well which was new for her. She finds that Remeron is one of the best thing she is ever tried to help herself get to sleep, however the restless legs that she is experiencing a chronic basis continue to be an issue. She reports having ego dystonic and intrusive thoughts that her daughter would be "better off without me" at times, however, she has no intent or plan to act on these thoughts. She often finds that taking a nap seems to help clear her mind and distract her from the thoughts. Additionally she has lost a loved 1 to suicide and reflects on the impact their has had on those who loved them; this is also a deterrent for her as she does not want to inflict that harm on her family. Patient denies any auditory, visual hallucinations and denies any paranoia or delusions. Patient has been compliant with meds. Mental Status Exam: General Appearance: Patient appears to be stated age is alert, directable, and cooperative. Behavior: Patient is calmly seated without any agitated behavior. Speech: Patient's speech is fluent and non-pressured. Mood/Affect: Mood is anxious", affect is congruent and constricted. Suicidality/Homicidality: Patient denies having homicidal ideation, intent, or plan. She does report ego-dystonic suicidal ideation; no identified method, intent, or plan Perceptions: Patient denies any visual hallucinations and denies any auditory hallucinations Though content/process: There is no evidence of any delusional thought content and thought process is linear and goal-directed. Memory and concentration: AOX3, grossly intact for the purposes of this session Judgment and insight: Improving mildly Assessment Major depressive disorder, recurrent Generalized anxiety disorder Polysubstance use disorder (cocaine, psychedelics, opiates, cannabis, alcohol), in early remission Nicotine dependence Plan: -Patient continues to meet criteria for inpatient psychiatric admission for symptom stabilization and safety. Patient has signed adult voluntary form and medication consent and was placed in patient's chart. -Medications: - Continue Remeron 7.5 mg at bedtime for sleep/depression/anxiety - Continue Prozac 80 mg daily for depression/anxiety (increased on 09/29/24) - Continue Vistaril 100 mg at bedtime for sleep (also on Melatonin 10 mg at bedtime) - Continue propranolol 20 mg twice daily for anxiety (adjusted timing of morning dose to align with increasing anxiety symptoms; however, patient has been having intermittent issues with hypotension that have impacted regular administration) - Trial Mirapex 0.125 mg at bedtime for chronic issues with restless legs; counseled patient on potential for CERT[employer]IED VETERIN[employer] TECHNICIAN depression/dizziness and need to rise slowly from lying/seated positions before standing -When necessary Atarax and Haldol for agitation/aggression. -Labs: No new labs -NRT -nicotine patch -SW on board for discharge planning. Encouraged the patient to participate in milieu.
[2024-10-01] MEDS: PANTOPRAZOLE 40 MG TABLET PO SCH (21:41)
[2024-10-01] MEDS: PRAMIPEXOLE 0.125 MG TAB PO SCH (21:41)
[2024-10-02] MEDS: PROPRANOLOL 20 MG TAB PO STA (10:48)
--- NOTE | 2024-10-02 12:45 | P.PN ---
Progress Note - Text Progress Note Date: 10/02/24 Interval History: Patient was seen laying in bed and was directable and agreeable to speak with handbook writer in the office. She states feeling "tired" today directly related to poor sleep overnight due to restless legs. Patient is also reporting high anxiety however was able to identify 2 coping skills including journaling and resting when feeling anxious. She reports noticing an improvement in her anxiety with propranolol however she requests changing the timing for this as she noticed an uptick in anxiety during breakfast and lunchtime. Vitals have been stable to mildly low and patient was encouraged to watch out for signs and symptoms of hypotension including dizziness, lightheadedness and headache. Patient describes her thoughts as mostly negative, stating her daughter will be better off with daughter at this thought was actively challenged today with CBT implemented. Patient was able to realize that her previous issues with her daughter were directly related to feeling depressed and being on substances and that now both of those are treated things should be better now than before. At this time patient denies any suicidal or homicidal ideations, intent or plan. Patient denies any auditory, visual hallucinations and denies any paranoia or delusions. Patient denies any side effects from the medications and has been compliant with meds. Mental Status Exam: General Appearance: Patient appears to be stated age is alert, directable, and cooperative. Behavior: Patient is calmly seated without any agitated behavior. Speech: Patient's speech is fluent and nonpressured. Mood/Affect: Mood is "tired" and affect is congruent and anxious appearing. Suicidality/Homicidality: Patient denies having any suicidal or homicidal ideation intent or plan. Perceptions: Patient denies any visual hallucinations and denies any auditory hallucinations Though content/process: There is no evidence of any delusional thought content and thought process is linear and logical. Memory and concentration: AOX3, grossly intact for the purposes of this session Judgment and insight: Improving mildly Assessment Major depressive disorder, recurrent Generalized anxiety disorder Polysubstance use disorder (cocaine, psychedelics, opiates, cannabis, alcohol) in early remission Nicotine dependence Plan: -Patient continues to meet criteria for inpatient psychiatric admission for symptom stabilization and safety. Patient has signed adult voluntary form and medication consent and was placed in patient's chart. -Medications: Increase Mirapex to 0.25 mg at bedtime for RLS and continue Remeron 7.5 mg at bedtime for sleep/depression/anxiety, Prozac 80 mg daily for depression/anxiety, Vistaril 100 mg at bedtime for sleep, melatonin 10 mg at bedtime for sleep, propranolol 20 mg twice daily for anxiety (note dose adjusted to 9 AM and 2 PM per patient's request) -When necessary Ativan and Haldol for agitation/aggression. -Labs: Reviewed -NRT -nicotine patch -SW on board for discharge planning. Encouraged the patient to participate in milieu. Anticipate discharge back to [facility] later this week pending stabilization in safety concerns
[2024-10-02] MEDS: PROPRANOLOL 20 MG TAB PO SCH (13:45)
[2024-10-02] MEDS: PRAMIPEXOLE 0.25 MG TAB PO SCH (21:03)
[2024-10-03 07:09] VITALS: RESP 16
--- NOTE | 2024-10-03 13:07 | P.PN ---
Progress Note - Text Progress Note Date: 10/03/24 Interval History: Patient was seen in the [facility] and was directable and agreeable to speak with typewriter tester in the office. She was unable to describe her mood as she states she just woke up. Patient notably has not been attending groups and this was discussed today to which she states not liking them. She states the restlessness overnight has improved with the increase in Mirapex however she still reports inconsistent sleep. She continues to report high anxiety and states she was unable to receive both doses of propranolol yesterday given her blood pressure. She does report an increase in appetite however is unable to state if this is from anxiety versus medication side effect. At this time patient denies any suicidal or homicidal ideations, intent or plan. Patient denies any auditory, visual hallucinations and denies any paranoia or delusions. Patient denies any side effects from the medications and has been compliant with meds. Mental Status Exam: General Appearance: Patient appears to be stated age is alert, directable, and cooperative. Behavior: Patient is calmly seated without any agitated behavior. Speech: Patient's speech is fluent and nonpressured. Mood/Affect: Mood is improving mildly, affect is congruent and anxious, blunted. Suicidality/Homicidality: Patient denies having any suicidal or homicidal ideation intent or plan. Perceptions: Patient denies any visual hallucinations and denies any auditory hallucinations Though content/process: There is no evidence of any delusional thought content and thought process is linear and logical. Memory and concentration: AOX3, grossly intact for the purposes of this session Judgment and insight: Improving mildly Assessment Depressive disorder, recurrent Generalized anxiety disorder Polysubstance use disorder (cocaine, psychedelics, opiates, cannabis, alcohol), in early remission Nicotine dependence Plan: -Patient continues to meet criteria for inpatient psychiatric admission for symptom stabilization and safety. Patient has signed adult voluntary form and medication consent and was placed in patient's chart. -Medications: Increase Remeron to 15 mg at bedtime for sleep/mood, decrease propranolol to 10 mg 3 times daily for anxiety, continue Prozac 80 mg daily for depression/anxiety, Mirapex 0.25 mg at bedtime for RLS, Vistaril 100 mg at bedtime for insomnia, melatonin 10 mg at bedtime for insomnia -When necessary Ativan and Haldol for agitation/aggression. -Labs: Reviewed -NRT -nicotine patch -SW on board for discharge planning. Encouraged the patient to participate in milieu. Anticipate discharge back to [facility] later this week
[2024-10-03] MEDS: PROPRANOLOL 10 MG TAB PO SCH (13:38)
[2024-10-03] MEDS: MIRTAZAPINE 15 MG TAB PO SCH (20:49)
--- NOTE | 2024-10-04 10:31 | P.PN ---
Progress Note - Text Progress Note Date: 10/04/24 Interval History: Patient was seen laying in bed and was directable and agreeable to speak with telegraphic typewriter installer in the office. She states feeling better today. She reports improvement in anxiety in addition to suicidal thoughts, stating she has been actively challenging them although still reporting them, passive in nature. She denied any restlessness overnight and reports improvement in terms of sleep however did report some issues falling asleep. Vital signs have been stable with the decrease in propranolol. She states speaking to her daughter yesterday and was future oriented, talking about spending time with her and watching movies when she is discharged. At this time patient denies any homicidal ideations, intent or plan. Patient denies any auditory, visual hallucinations and denies any paranoia or delusions. Patient denies any side effects from the medications and has been compliant with meds. Mental Status Exam: General Appearance: Patient appears to be stated age is alert, directable, and cooperative. Behavior: Patient is calmly seated without any agitated behavior. Speech: Patient's speech is fluent and nonpressured. Mood/Affect: Mood is improving mildly, affect is congruent and blunted, less anxious. Suicidality/Homicidality: Patient denies having any suicidal or homicidal ideation intent or plan. Perceptions: Patient denies any visual hallucinations and denies any auditory hallucinations Though content/process: There is no evidence of any delusional thought content and thought process is linear and goal-directed. Memory and concentration: AOX3, grossly intact for the purposes of this session Judgment and insight: Improving mildly Assessment Major depressive disorder, recurrent Generalized anxiety disorder Polysubstance use disorder (cocaine, psychedelics, opioids, cannabis, alcohol), in early remission Nicotine dependence Plan: -Patient continues to meet criteria for inpatient psychiatric admission for symptom stabilization and safety. Patient has signed adult voluntary form and medication consent and was placed in patient's chart. -Medications: Continue Remeron 15 mg at bedtime for sleep/mood, propranolol 10 mg 3 times daily for anxiety, Prozac 80 mg daily for depression/anxiety, Mirapex 0.25 mg at bedtime for RLS, Vistaril 100 mg at bedtime for insomnia, melatonin 10 mg at bedtime for insomnia -When necessary Atarax and Haldol for agitation/aggression. -Labs: Reviewed -NRT -nicotine patch -SW on board for discharge planning. Encouraged the patient to participate in milieu. Anticipate discharge back to [facility] on Wednesday
[2024-10-05 06:49] VITALS: TEMP 97.6
--- NOTE | 2024-10-05 10:27 | P.PN ---
Progress Note - Text Progress Note Date: 10/05/24 Interval History: Patient was seen in group and was directable and agreeable to speak with scenario writer in the office. She states feeling "anxious" today related to her inability to contact her mother all evening yesterday. She states she had a nightmare related to this overnight that impacted her sleep however she was able to get a hold of her this morning which is a relief. She reports restlessness at nighttime but then also states her roommate had the heat up which also impacted her sleep. Patient has been journaling and shared journal entry patient wrote in regards to her road to recovery. She continues to be in maintenance stage of change related to her addiction. She states her lower school music teacher from [facility] saw her yesterday to check again. She was future oriented today, talked about spending the holidays with her daughter. At this time patient denies any suicidal or homicidal ideations, intent or plan. Patient denies any auditory, visual hallucinations and denies any paranoia or delusions. Patient denies any side effects from the medications and has been compliant with meds. Mental Status Exam: General Appearance: Patient appears to be stated age is alert, directable, and cooperative. Behavior: Patient is calmly seated without any agitated behavior. Speech: Patient's speech is fluent and nonpressured. Mood/Affect: Mood is improving mildly, affect is congruent and blunted. Suicidality/Homicidality: Patient denies having any suicidal or homicidal ideation intent or plan. Perceptions: Patient denies any visual hallucinations and denies any auditory hallucinations Though content/process: There is no evidence of any delusional thought content and thought process is linear and goal-directed. Memory and concentration: AOX3, grossly intact for the purposes of this session Judgment and insight: Improving mildly Assessment Major depressive disorder, recurrent Generalized anxiety disorder Polysubstance use disorder (cocaine psychedelics, opioids, cannabis, alcohol), in early remission Nicotine dependence Plan: -Patient continues to meet criteria for inpatient psychiatric admission for symptom stabilization and safety. Patient has signed adult voluntary form and medication consent and was placed in patient's chart. -Medications: Continue Remeron 15 mg at bedtime for sleep/mood, propranolol 10 mg 3 times daily for anxiety, Prozac 80 mg daily for depression/anxiety, Vistaril 100 mg at bedtime for insomnia, melatonin 10 mg at bedtime for insomnia, increase Mirapex to 0.5 mg at bedtime for RLS -When necessary ask and Haldol for agitation/aggression. -Labs: Reviewed -NRT -nicotine patch -SW on board for discharge planning. Encouraged the patient to participate in milieu. Anticipate discharge back to [facility] tomorrow
[2024-10-05 14:14] VITALS: BP 101/69; PULSE 90
[2024-10-05] MEDS: PRAMIPEXOLE 0.5 MG TAB PO SCH (21:18)
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
== END 2024-10-06 15:17 | disposition home or self-care (01) | DRG 751 ==
LOC: EC 13:50 → 3MHU 17:08
PROVIDERS: ADMIT Psychiatry & Neurology Psychiatry; ATTEND Psychiatry & Neurology Psychiatry
DX: F33.9 Major depressive disorder, recurrent, unspecified (principal); T74.21XA Adult sexual abuse, confirmed, initial encounter; S71.111A Laceration without foreign body, right thigh, initial encounter; R45.851 Suicidal ideations; X78.9XXA Intentional self-harm by unspecified sharp object, initial encounter; F19.11 Other psychoactive substance abuse, in remission; F10.11 Alcohol abuse, in remission; G25.81 Restless legs syndrome; F17.210 Nicotine dependence, cigarettes, uncomplicated; F43.10 Post-traumatic stress disorder, unspecified; F41.1 Generalized anxiety disorder; F41.0 Panic disorder [episodic paroxysmal anxiety]; R45.1 Restlessness and agitation; G47.00 Insomnia, unspecified; F90.9 Attention-deficit hyperactivity disorder, unspecified type; Z79.899 Other long term (current) drug therapy; Z56.0 Unemployment, unspecified; Z81.8 Family history of other mental and behavioral disorders
CPT/HCPCS: 80053; 80061; 80306; 81001; 81025; 82075; 82248; 83036; 84443; 85025; 87635; 99285

== ENCOUNTER 2025-01-15 22:24 | Inpatient (IN) | payer MEDICAID, OTHER ==
[2025-01-15 23:09] LABS: Basophils # (A) 0.1 k/uL (0-0.2); Basophils % (A) 1 %; Eosinophils # (A) 0.3 k/uL (0-0.7); Eosinophils % (A) 3 %; HCT 43.1 % (34.0-46.0); HGB 14.2 gm/dL (11.4-16.0); Lymphocytes % (A) 39 %; MCH 26.1 pg (25.0-35.0); MCHC 32.9 g/dL (31.0-37.0); MCV 79.3 fL (80.0-100.0); Mean Platelet Volume 7.9; Monocytes # (A) 0.6 k/uL (0-1.0); Monocytes % (A) 6 %; Neutrophils % (A) 50 %; Platelet Count 356 k/uL (150-450); RBC 5.43 m/uL (3.80-5.40); RDW 13.2 % (11.5-15.5); WBC 10.1 k/uL (3.8-10.6)
--- NOTE | 2025-01-15 23:16 | ED ---
Overdose HPI - General Source: EMS Mode of arrival: EMS Limitations: no limitations - History of Present Illness MD Complaint: intentional overdose Onset/Timin -: hour(s) Intent: suicide attempt Context: Intentional Overdose: drug/ETOH problems Treatments Prior to Arrival: none <Billy Deutsch - Last Filed: 01/16/25 06:16> <Albert Swanson - Last Filed: 01/16/25 10:24> - General Chief Complaint: Psychiatric Symptoms Stated Complaint: Suicide Attempt Time Seen by Provider: 01/15/25 22:26 - History of Present Illness Initial Comments: Patient is a 24-year-old woman who is brought to have evaluation for overdose. The patient approximately 2 hours ago had taken "handful" of propranolol 10 mg and Vistaril 50 mg. She had been drinking and had suicidal impulse. On arrival, the patient denies complaints. (Billy Deutsch) - Related Data Home Medications Medication Instructions Recorded Confirmed FLUoxetine HCL [PROzac] 80 mg PO DAILY 01/16/25 01/16/25 Propranolol [Inderal] 10 mg PO TID 01/16/25 01/16/25 Viloxazine HCl [Qelbree] 100 mg PO DAILY 01/16/25 01/16/25 hydrOXYzine pamoate [Vistaril] 50 mg PO DAILY PRN 01/16/25 01/16/25 hydrOXYzine pamoate [Vistaril] 100 mg PO HS PRN 01/16/25 01/16/25 Previous Rx's Medication Instructions Recorded Melatonin 10 mg PO HS 30 Days #60 tab 10/06/24 Mirtazapine [Remeron] 15 mg PO HS 30 Days #30 tab 10/06/24 Omeprazole 40 mg PO BID 30 Days #60 cap 10/06/24 Pramipexole [Mirapex] 0.5 mg PO HS 30 Days #30 tab 10/06/24 Allergies Allergy/AdvReac Type Severity Reaction Status Date / Time cats Allergy runny Uncoded 01/16/25 10:07 nose, congestion, itching dust Allergy sneezing, Uncoded 01/16/25 10:07 rash mold Allergy congested, Uncoded 01/16/25 10:07 itchy, stuffy Review of Systems ROS Other: All systems not noted in ROS Statement are negative. Constitutional: Denies: fever, weakness Eyes: Denies: vision change Respiratory: Denies: cough, dyspnea Cardiovascular: Denies: chest pain, palpitations, edema Gastrointestinal: Denies: abdominal pain, nausea, vomiting, diarrhea Genitourinary: Denies: dysuria, hematuria Musculoskeletal: Denies: back pain Skin: Denies: rash Neurological: Denies: headache, weakness Psychiatric: Reports: depression, suicidal thoughts <Blily Deutsch - Last Filed: 01/16/25 06:16> ROS Other: All systems not noted in ROS Statement are negative. <Albert Swanson - Last Filed: 01/16/25 10:24> ROS Statement: Those systems with pertinent positive or pertinent negative responses have been documented in the HPI. Past Medical History Past Medical History: GERD/Reflux Additional Past Medical History / Comment(s): Abd pain, severe gastritis, artur abinoid hyperemesis syndrome History of Any Multi-Drug Resistant Organisms: None Reported Past Surgical History: Cholecystectomy Additional Past Surgical History / Comment(s): wisdom teeth removed, zoraida in august of 2018 Past Anesthesia/Blood Transfusion Reactions: No Reported Reaction Past Psychological History: Anxiety, Depression, PTSD Smoking Status: Current some day smoker, Vaper Past Alcohol Use History: None Reported, Occasional Past Drug Use History: Marijuana - Past Family History Mother Family Medical History: Asthma <Blily Deutsch - Last Filed: 01/16/25 06:16> General Exam Limitations: no limitations General appearance: alert, in no apparent distress, appears intoxicated Head exam: Present: atraumatic, normocephalic Eye exam: Present: normal appearance. Absent: scleral icterus, conjunctival injection ENT exam: Present: normal oropharynx Neck exam: Present: normal inspection Respiratory exam: Present: normal lung sounds bilaterally. Absent: respiratory distress, wheezes, rales, rhonchi, stridor, accessory muscle use Cardiovascular Exam: Present: regular rate, normal rhythm, normal heart sounds. Absent: systolic murmur, diastolic murmur, rubs, gallop GI/Abdominal exam: Present: soft. Absent: distended, tenderness, guarding, rebound, rigid, mass Extremities exam: Present: normal inspection, normal capillary refill. Absent: pedal edema, calf tenderness Back exam: Present: normal inspection. Absent: CVA tenderness (R), CVA tenderness (L) Neurological exam: Present: alert Psychiatric exam: Present: depressed, flat affect, suicidal ideation. Absent: agitated, anxious, manic, homicidal ideation Skin exam: Present: warm, dry, intact, normal color. Absent: rash <GetBilly - Last Filed: 01/16/25 06:16> Course Vital Signs 01/15/25 01/16/25 01/16/25 22:26 01:40 06:12 Temperature 98.0 F 97.8 F 97.6 F Pulse Rate 62 73 71 Respiratory 18 18 18 Rate Blood Pressure 117/81 112/76 121/79 O2 Sat by Pulse 99 96 98 Oximetry 01/16/25 07:46 Temperature 97.7 F Pulse Rate 74 Respiratory 16 Rate Blood Pressure 104/64 O2 Sat by Pulse 96 Oximetry Medical Decision Making - Lab Data Result diagrams: 01/15/25 22:40 01/16/25 00:44 - EKG Data -: EKG Interpreted by Me EKG shows normal: sinus rhythm (Rate 64 bpm), axis (Normal), intervals (Normal), QRS complexes ( possible complete right bundle branch block), ST-T waves (Normal) Rate: normal Interpretation: normal EKG <Billy Deutsch - Last Filed: 01/16/25 06:16> - Lab Data Result diagrams: 01/15/25 22:40 01/16/25 00:44 <Albert Swanson - Last Filed: 01/16/25 10:24> - Medical Decision Making Patient is a 24-year-old woman evaluation after she took a number of 10 mg propranolol tablets and 50 mg hydroxyzine capsules. The patient observed to ensure that there is no evidence of beta-harper overdose. The patient borderline bradycardic but not hypotensive. At end of observation, Patient cleared to have EPS evaluation. (Billy Deutsch) Was patient admitted / discharged? Hospital course, mention meds given and route, prescriptions, significant lab abnormalities, going to OR and other pertinent info. @ -Patient was signed out to me by Dr. Kennedy and EPS evaluated the patient spoke with the psychiatrist and it was determined the patient need to be admitted Undiagnosed new problem with uncertain prognosis? @ -No Drug Therapy requiring intensive monitoring for toxicity (Heparin, Nitro, Insulin, Cardizem)? @ -No Were any procedures done? @ -No Diagnosis/symptom? @ -Depression Acute, or Chronic, or Acute on Chronic? @ -Acute Uncomplicated (without systemic symptoms) or Complicated (systemic symptoms)? @ -Complicated Side effects of treatment? @ -No Exacerbation, Progression, or Severe Exacerbation? @ -No Poses a threat to life or bodily function? How? (Chest pain, [place], CO, pneumonia, PE, COPD, DKA, ARF, appy, cholecystitis, CVA, Diverticulitis, Homicidal, Suicidal, threat to staff... and all critical care pts) @ -No Diagnosis/symptom? @ -Alcohol intoxication Acute, or Chronic, or Acute on Chronic? @ -Acute Uncomplicated (without systemic symptoms) or Complicated (systemic symptoms)? @ -Complicated Side effects of treatment? @ -None Exacerbation, Progression, or Severe Exacerbation] @ -No Poses a threat to life or bodily function? @ -No Diagnosis/symptom? @ -Suicidal attempt Acute, or Chronic, or Acute on Chronic? @ -Acute Uncomplicated (without systemic symptoms) or Complicated (systemic symptoms)? @ -Complicated Side effects of treatment? @ -None Exacerbation, Progression, or Severe Exacerbation] @ -No Poses a threat to life or bodily function? @ -No (Albert Swanson) - Lab Data Lab Results 01/15/25 01/16/25 01/16/25 Range/Units 22:40 00:44 02:00 WBC 10.1 (3.8-10.6) k/uL RBC 5.43 H (3.80-5.40) m/uL Hgb 14.2 (11.4-16.0) gm/dL Hct 43.1 (34.0-46.0) % MCV 79.3 L (80.0-100.0) fL MCH 26.1 (25.0-35.0) pg MCHC 32.9 (31.0-37.0) g/dL RDW 13.2 (11.5-15.5) % Plt Count 356 (150-450) k/uL MPV 7.9 Neutrophils % 50 % Lymphocytes % 39 % Monocytes % 6 % Eosinophils % 3 % Basophils % 1 % Neutrophils # 5.0 (1.3-7.7) k/uL Lymphocytes # 4.0 (1.0-4.8) k/uL Monocytes # 0.6 (0-1.0) k/uL Eosinophils # 0.3 (0-0.7) k/uL Basophils # 0.1 (0-0.2) k/uL Sodium 138 (137-145) mmol/L Potassium 4.6 (3.5-5.1) mmol/L Chloride 103 (98-107) mmol/L Carbon Dioxide 25 (22-30) mmol/L Anion Gap 10 mmol/L BUN 17 (7-17) mg/dL Creatinine 0.52 (0.52-1.04) mg/dL Est GFR (CKD-EPI)AfAm >90 (>60 ml/min/1.73 sqM) Est GFR (CKD-EPI)NonAf >90 (>60 ml/min/1.73 sqM) Glucose 99 (74-99) mg/dL Calcium 9.0 (8.4-10.2) mg/dL Total Bilirubin 0.7 (0.2-1.3) mg/dL AST 39 H (14-36) U/L ALT 60 H (4-34) U/L Alkaline Phosphatase 77 (38-126) U/L Total Protein 7.1 (6.3-8.2) g/dL Albumin 4.0 (3.5-5.0) g/dL Urine HCG, Qual Not Detected (Not Detectd) Salicylates <1.0 mg/dL Urine Opiates Screen (NotDetected) Ur Oxycodone Screen (NotDetected) Urine Methadone Screen (NotDetected) Acetaminophen <10.0 ug/mL Ur Barbiturates Screen (NotDetected) U Tricyclic Antidepress (NotDetected) Ur Phencyclidine Scrn (NotDetected) Ur Amphetamines Screen (NotDetected) U Methamphetamines Scrn (NotDetected) U Benzodiazepines Scrn (NotDetected) Urine Cocaine Screen (NotDetected) U Marijuana (THC) Screen (NotDetected) Serum Alcohol <10 mg/dL SARS-CoV-2 (PCR) (Not Detectd) 01/16/25 01/16/25 Range/Units 02:00 06:18 WBC (3.8-10.6) k/uL RBC (3.80-5.40) m/uL Hgb (11.4-16.0) gm/dL Hct (34.0-46.0) % MCV (80.0-100.0) fL MCH (25.0-35.0) pg MCHC (31.0-37.0) g/dL RDW (11.5-15.5) % Plt Count (150-450) k/uL MPV Neutrophils % % Lymphocytes % % Monocytes % % Eosinophils % % Basophils % % Neutrophils # (1.3-7.7) k/uL Lymphocytes # (1.0-4.8) k/uL Monocytes # (0-1.0) k/uL Eosinophils # (0-0.7) k/uL Basophils # (0-0.2) k/uL Sodium (137-145) mmol/L Potassium (3.5-5.1) mmol/L Chloride (98-107) mmol/L Carbon Dioxide (22-30) mmol/L Anion Gap mmol/L BUN (7-17) mg/dL Creatinine (0.52-1.04) mg/dL Est GFR (CKD-EPI)AfAm (>60 ml/min/1.73 sqM) Est GFR (CKD-EPI)NonAf (>60 ml/min/1.73 sqM) Glucose (74-99) mg/dL Calcium (8.4-10.2) mg/dL Total Bilirubin (0.2-1.3) mg/dL AST (14-36) U/L ALT (4-34) U/L Alkaline Phosphatase (38-126) U/L Total Protein (6.3-8.2) g/dL Albumin (3.5-5.0) g/dL Urine HCG, Qual (Not Detectd) Salicylates mg/dL Urine Opiates Screen Not Detected (NotDetected) Ur Oxycodone Screen Not Detected (NotDetected) Urine Methadone Screen Not Detected (NotDetected) Acetaminophen ug/mL Ur Barbiturates Screen Not Detected (NotDetected) U Tricyclic Antidepress Not Detected (NotDetected) Ur Phencyclidine Scrn Not Detected (NotDetected) Ur Amphetamines Screen Not Detected (NotDetected) U Methamphetamines Scrn Not Detected (NotDetected) U Benzodiazepines Scrn Not Detected (NotDetected) Urine Cocaine Screen Not Detected (NotDetected) U Marijuana (THC) Screen Detected H (NotDetected) Serum Alcohol mg/dL SARS-CoV-2 (PCR) Not Detected (Not Detectd) Disposition <Billy Deutsch - Last Filed: 01/16/25 06:16> Time of Disposition: 10:24 <Albert Swanson - Last Filed: 01/16/25 10:24> Clinical Impression: Depression, Suicide attempt Disposition: ADMITTED IP TO [facility] Referrals: Lonny Cavanaugh MD [Primary Care Provider] - 1-2 days
[2025-01-15] MEDS: ONDANSETRON 4 MG/2 ML VIAL IVP STA (23:19)
[2025-01-15] MEDS: SODIUM CHLORIDE 0.9% 1,000 ML IV STA (23:19)
[2025-01-16 01:07] LABS: ALT 60 U/L (4-34); AST 39 U/L (14-36); Acetaminophen <10.0 ug/mL; African American GFR (CKD) >90 (>60 ml/min/1.73 sqM); Alcohol <10 mg/dL; Alkaline Phosphatase 77 U/L (38-126); Anion Gap 10 mmol/L; Blood Urea Nitrogen 17 mg/dL (7-17); Carbon Dioxide 25 mmol/L (22-30); Chloride 103 mmol/L (98-107); Glucose 99 mg/dL (74-99); Non-African American GFR(CKD) >90 (>60 ml/min/1.73 sqM); Potassium 4.6 mmol/L (3.5-5.1); Salicylate <1.0 mg/dL; Sodium 138 mmol/L (137-145); Total Bilirubin 0.7 mg/dL (0.2-1.3); Total Protein 7.1 g/dL (6.3-8.2)
[2025-01-16 02:30] LABS: Amphetamine Screen,Urine Not Detected (NotDetected); Barbiturate Screen,Urine Not Detected (NotDetected); Benzodiazepines Screen,Urine Not Detected (NotDetected); Cocaine Screen,Urine Not Detected (NotDetected); Methadone Screen, Urine Not Detected (NotDetected); Opiate Screen,Urine Not Detected (NotDetected); Oxycodone Screen, Urine Not Detected (NotDetected); Phencyclidine Screen,Urine Not Detected (NotDetected); Tricyclic Antidepressant,Urine Not Detected (NotDetected); Urn Cannabinoid Scrn Detected (NotDetected)
[2025-01-16] MEDS ORDERED: OLANZapine 10 MG VIAL IM PRN (16:29)
[2025-01-16] MEDS ORDERED: ACETAMINOPHEN TAB 325 MG TAB PO PRN (16:29)
[2025-01-16] MEDS ORDERED: OLANZapine 10 MG TAB PO PRN (16:29)
[2025-01-16] MEDS ORDERED: MAGNESIUM HYDROXIDE 2,400 MG/30 ML CUP PO PRN (16:29)
[2025-01-16] MEDS: PANTOPRAZOLE 40 MG TABLET PO SCH (17:38)
[2025-01-16] MEDS: traZODone HCL 50 MG TAB PO SCH (20:57)
[2025-01-16] MEDS: hydrOXYzine pamoate 25 MG CAP PO SCH (20:57)
[2025-01-16] MEDS: MELATONIN 5 MG TABLET PO SCH (21:26)
[2025-01-16] MEDS: MIRTAZAPINE 15 MG TAB PO SCH (21:26)
[2025-01-16] MEDS: hydrOXYzine HCL 25 MG TAB PO PRN (21:32)
[2025-01-17 02:50] LABS: Appearance,Urine Cloudy (Clear); Bacteria,Urine Moderate /hpf; Bilirubin,Urine Negative (Negative); Blood,Urine Negative (Negative); Color,Urine Yellow; Glucose,Urine (UA) Negative (Negative); Hyaline Casts,Urine 9 /lpf (0-2); Ketones,Urine Negative (Negative); Leukocyte Esterase,Urine Negative (Negative); Mucus,Urine Occasional /hpf; Nitrite,Urine Negative (Negative); PH, Urine 6.5 (5.0-8.0); Protein,Urine 1+ (Negative); RBC,Urine 1 /hpf (0-5); Specific Gravity,Urine 1.024 (1.001-1.035); Squamous Epithelial Cell,Urine 12 /hpf (0-4); Urobilinogen,Urine <2.0 mg/dL (<2.0); WBC,Urine 2 /hpf (0-5)
[2025-01-17] MEDS: NICOTINE 21MG/24HR PATCH TRANSDERM SCH (09:01)
[2025-01-17 09:51] LABS: Basophils # (A) 0.1 k/uL (0-0.2); Basophils % (A) 1 %; Eosinophils # (A) 0.3 k/uL (0-0.7); Eosinophils % (A) 3 %; HCT 46.1 % (34.0-46.0); HGB 14.9 gm/dL (11.4-16.0); Lymphocytes # (A) 3.8 k/uL (1.0-4.8); Lymphocytes % (A) 35 %; MCH 25.9 pg (25.0-35.0); MCHC 32.3 g/dL (31.0-37.0); MCV 80.4 fL (80.0-100.0); Monocytes # (A) 0.7 k/uL (0-1.0); Monocytes % (A) 7 %; Neutrophils # (A) 5.9 k/uL (1.3-7.7); Neutrophils % (A) 54 %; Platelet Count 221 k/uL (150-450); RBC 5.74 m/uL (3.80-5.40); RDW 13.1 % (11.5-15.5); WBC 10.9 k/uL (3.8-10.6)
[2025-01-17 11:15] LABS: ALT 63 U/L (4-34); AST 35 U/L (14-36); African American GFR (CKD) >90 (>60 ml/min/1.73 sqM); Albumin 4.4 g/dL (3.5-5.0); Alkaline Phosphatase 85 U/L (38-126); Anion Gap 11 mmol/L; Bilirubin, Delta 0.1 mg/dL (0.0-0.2); Bilirubin,Unconjugated 1.2 mg/dL (0.0-1.1); Blood Urea Nitrogen 15 mg/dL (7-17); Calcium 9.6 mg/dL (8.4-10.2); Carbon Dioxide 26 mmol/L (22-30); Chloride 101 mmol/L (98-107); Glucose 109 mg/dL (74-99); Non-African American GFR(CKD) >90 (>60 ml/min/1.73 sqM); Potassium 4.2 mmol/L (3.5-5.1); Sodium 138 mmol/L (137-145); Total Bilirubin 1.3 mg/dL (0.2-1.3); Total Protein 7.6 g/dL (6.3-8.2)
[2025-01-17] MEDS: FLUoxetine HCL 20 MG CAP PO SCH (12:04)
[2025-01-17] MEDS: ONDANSETRON ODT 4 MG TAB PO PRN (12:04)
[2025-01-17] MEDS: PROPRANOLOL 10 MG TAB PO SCH (12:38)
--- NOTE | 2025-01-17 14:38 | P.HP ---
Psychiatric H&P - . H&P Date: 01/17/25 History & Physical: Allergies Allergy/AdvReac Type Severity Reaction Status Date / Time trazodone AdvReac Hallucinati Verified 01/16/25 21:35 ons cats Allergy runny Uncoded 01/16/25 10:07 nose, congestion, itching dust Allergy sneezing, Uncoded 01/16/25 10:07 rash mold Allergy congested, Uncoded 01/16/25 10:07 itchy, stuffy Vital Signs Temp 97.2 F L 01/17/25 09:00 Pulse 89 01/17/25 12:39 Resp 17 01/17/25 09:00 BP 102/73 01/17/25 12:39 Pulse Ox 98 01/16/25 21:00 FiO2 Intake & Output 01/16/25 01/17/25 01/17/25 18:59 06:59 18:59 Weight 121.364 kg Laboratory Last Values WBC 10.9 k/uL (3.8-10.6) H 01/17/25 08:44 RBC 5.74 m/uL (3.80-5.40) H 01/17/25 08:44 Hgb 14.9 gm/dL (11.4-16.0) 01/17/25 08:44 Hct 46.1 % (34.0-46.0) H 01/17/25 08:44 MCV 80.4 fL (80.0-100.0) 01/17/25 08:44 MCH 25.9 pg (25.0-35.0) 01/17/25 08:44 MCHC 32.3 g/dL (31.0-37.0) 01/17/25 08:44 RDW 13.1 % (11.5-15.5) 01/17/25 08:44 Plt Count 221 k/uL (150-450) 01/17/25 08:44 MPV 9.0 01/17/25 08:44 Neutrophils % 54 % 01/17/25 08:44 Lymphocytes % 35 % 01/17/25 08:44 Monocytes % 7 % 01/17/25 08:44 Eosinophils % 3 % 01/17/25 08:44 Basophils % 1 % 01/17/25 08:44 Neutrophils # 5.9 k/uL (1.3-7.7) 01/17/25 08:44 Lymphocytes # 3.8 k/uL (1.0-4.8) 01/17/25 08:44 Monocytes # 0.7 k/uL (0-1.0) 01/17/25 08:44 Eosinophils # 0.3 k/uL (0-0.7) 01/17/25 08:44 Basophils # 0.1 k/uL (0-0.2) 01/17/25 08:44 Sodium 138 mmol/L (137-145) 01/17/25 10:22 Potassium 4.2 mmol/L (3.5-5.1) 01/17/25 10:22 Chloride 101 mmol/L (98-107) 01/17/25 10:22 Carbon Dioxide 26 mmol/L (22-30) 01/17/25 10:22 Anion Gap 11 mmol/L 01/17/25 10:22 BUN 15 mg/dL (7-17) 01/17/25 10:22 Creatinine 0.61 mg/dL (0.52-1.04) 01/17/25 10:22 Est GFR (CKD-EPI)AfAm >90 (>60 ml/min/1.73 sqM) 01/17/25 10:22 Est GFR (CKD-EPI)NonAf >90 (>60 ml/min/1.73 sqM) 01/17/25 10:22 Glucose 109 mg/dL (74-99) H 01/17/25 10:22 Calcium 9.6 mg/dL (8.4-10.2) 01/17/25 10:22 Total Bilirubin 1.3 mg/dL (0.2-1.3) 01/17/25 10:22 Conjugated Bilirubin 0.0 mg/dL (0.0-0.3) 01/17/25 10:22 Unconjugated Bilirubin 1.2 mg/dL (0.0-1.1) H 01/17/25 10:22 Delta Bilirubin 0.1 mg/dL (0.0-0.2) 01/17/25 10:22 AST 35 U/L (14-36) 01/17/25 10:22 ALT 63 U/L (4-34) H 01/17/25 10:22 Alkaline Phosphatase 85 U/L (38-126) 01/17/25 10:22 Total Protein 7.6 g/dL (6.3-8.2) 01/17/25 10:22 Albumin 4.4 g/dL (3.5-5.0) 01/17/25 10:22 TSH 2.240 mIU/L (0.465-4.680) 01/17/25 10:22 Urine Color Yellow 01/16/25 02:00 Urine Appearance Cloudy (Clear) H 01/16/25 02:00 Urine pH 6.5 (5.0-8.0) 01/16/25 02:00 Ur Specific [place] 1.024 (1.001-1.035) 01/16/25 02:00 Urine Protein 1+ (Negative) H 01/16/25 02:00 Urine Glucose (UA) Negative (Negative) 01/16/25 02:00 Urine Ketones Negative (Negative) 01/16/25 02:00 Urine Blood Negative (Negative) 01/16/25 02:00 Urine Nitrite Negative (Negative) 01/16/25 02:00 Urine Bilirubin Negative (Negative) 01/16/25 02:00 Urine Urobilinogen <2.0 mg/dL (<2.0) 01/16/25 02:00 Ur Leukocyte Esterase Negative (Negative) 01/16/25 02:00 Urine RBC 1 /hpf (0-5) 01/16/25 02:00 Urine WBC 2 /hpf (0-5) 01/16/25 02:00 Ur Squamous Epith Cells 12 /hpf (0-4) H 01/16/25 02:00 Urine Bacteria Moderate /hpf (None) H 01/16/25 02:00 Hyaline Casts 9 /lpf (0-2) H 01/16/25 02:00 Urine Mucus Occasional /hpf (None) H 01/16/25 02:00 Urine HCG, Qual Not Detected (Not Detectd) 01/16/25 02:00 Salicylates <1.0 mg/dL 01/16/25 00:44 Urine Opiates Screen Not Detected (NotDetected) 01/16/25 02:00 Ur Oxycodone Screen Not Detected (NotDetected) 01/16/25 02:00 Urine Methadone Screen Not Detected (NotDetected) 01/16/25 02:00 Acetaminophen <10.0 ug/mL 01/16/25 00:44 Ur Barbiturates Screen Not Detected (NotDetected) 01/16/25 02:00 U Tricyclic Antidepress Not Detected (NotDetected) 01/16/25 02:00 Ur Phencyclidine Scrn Not Detected (NotDetected) 01/16/25 02:00 Ur Amphetamines Screen Not Detected (NotDetected) 01/16/25 02:00 U Methamphetamines Scrn Not Detected (NotDetected) 01/16/25 02:00 U Benzodiazepines Scrn Not Detected (NotDetected) 01/16/25 02:00 Urine Cocaine Screen Not Detected (NotDetected) 01/16/25 02:00 U Marijuana (THC) Screen Detected (NotDetected) H 01/16/25 02:00 Serum Alcohol <10 mg/dL 01/16/25 00:44 SARS-CoV-2 (PCR) Not Detected (Not Detectd) 01/16/25 06:18 01/17/25 14:27 IDENTIFYING DATA: Patient is a 24-year-old female, currently homeless and unemployed CHIEF COMPLAINT: Suicide attempt via OD HPI: Patient presented to the hospital with overdose on "handful" of propranolol 10 mg and Vistaril 50 mg. Per EPS note, "Pt brought into the ED via EMS after an overdose on Inderal and Vistaril. EPS RN in to assess pt. Pt laying in bed, opened her eyes and sat up when her name was stated. Pt has a flat affect, reports taking a handful of inderal and vistaril in an attempt to suicide. Pt continues to report thoughts to overdose and does not feel safe at this time. Unable to report current triggers. Pt states she had been living at [facility] but was kicked out about 2 months ago after her 3yo daughter left a stove on, currently living with various friends, daughter currently with her mother. Pt a/ox4, denies HI, delusions or AVH." Patient seen and evaluated on the unit and was agreeable with speaking to investment underwriter in office. She states being kicked out of [facility] about 2 months ago after her daughter had turned on the gas stove which caused a violation order. She states since then her mother has taken her daughter in however she is not able to live with her mother due to past conflict and that she has been staying at various friends' houses. Patient states about a month prior to getting kicked out of [facility] she also stop ped her medications stating this was due to her feeling depressed and not feeling motivated to take it. Patient states on the day of the suicide attempt she impulsively took a handful of her pills and then her cousin reportedly found her collapsed on the bathroom floor and contacted the ambulance. She states her daughter was there at that time. Patient reports predominant depressive symptoms including sleep difficulties, both increase and decrease in appetite, low energy, hopelessness, poor concentration. She reports continuous suicidal ideations with a plan to overdose, no intent while in the hospital. Patient also reports anxiety that appears generalized in nature. Patient denies any homicidal ideations intent or plan. At this time patient denies any auditory or visual hallucinations. Patient denies any flight of ideas racing thoughts and increased in goal directed behavior. Patient admits to using 1/5 of hard liquor roughly 3 times per week, denied any previous withdrawal symptoms or seizures, reported smoking cannabis wax daily and smoking cigarettes. PAST PSYCHIATRIC HISTORY: Patient has a history of MDD, QIAN, polysubstance use disorder. Patient denies being on any psychiatric medications. Patient reports 6 total inpatient hospitalizations most recent being at this facility back in September 2024. Patient denies any psychiatric outpatient follow-up. Patient re ports 1 previous suicide attempt. PMH: as per ER note ALLERGIES: as per EMR SUBSTANCE USE HISTORY: As per HPI FAMILY PSYCHIATRIC/SUBSTANCE USE HISTORY: Patient states her brother has bipolar disorder and that her mother has depression and has abused alcohol and heroin in the past. SOCIAL HISTORY: Patient is single and has 1 daughter who is currently living at her grandmother's house. Patient is currently homeless and unemployed, couch surfing. Patient ultimately dropped out of school after being expelled during her freshman year MENTAL STATUS EXAM: General Appearance: Patient appears to be stated age is alert, directable, and attempts to cooperate. Patient appears to have fair hygiene and grooming. She is obese and has blond dyed hair Behavior: Patient is seated without any agitated behavior. She is intermittently tearful Speech: Patient's speech is fluent and nonpressured. Mood/Affect: Patient reports their mood is depressed, affect is congruent and blunted but reactive Suicidality/Homicidality: Patient denies having any homicidal ideation intent or plan. She reports suicidal ideations with a plan Perceptions: Patient denies any visual hallucinations and denies any auditory hallucinations Though content/process: There is no evidence of any delusional thought content and thought process is linear and goal-directed. Memory and concentration: AOX3, grossly intact for the purposes of this session. Can spell "WORLD" backwards Judgment and insight: Poor STRENGTHS/WEAKNESSES: strength is that patient is resilient and has her daughter to live for. Weakness is that patient has poor judgment and is impulsive INTELLECT: Average IMPRESSIONS: Major depressive disorder, recurrent, severe Suicide attempt via OD Generalized anxiety disorder Alcohol use disorder, severe Cannabis use disorder Nicotine dependence Cluster B traits PLAN: -Patient is admitted under voluntary status to MHU for stabilization of psychiatric symptoms and safety. Patient has signed adult voluntary form and medication consent and is placed in patient's chart. -Medications : Decrease Remeron to 7.5 mg at bedtime for insomnia/mood/appetite, restart Prozac at 20 milligrams daily for depression/anxiety, propranolol 10 mg twice daily for anxiety, Vistaril 25 mg at bedtime for insomnia, Mirapex at 0.25 mg at bedtime for RLS, melatonin 10 mg at bedtime for insomnia -Hydroxyzine and Zyprexa PRN for agitation/aggression -Started thiamine, MVM for etoh use -CIWA protocol with Ativan PRN for ETOH withdrawal. -Patient was counselled on substance abuse and desired to cut back on use-Will offer patient subtance use rehab -Patient was informed of the risks, benefits and side effects of the medication and patient verbally consented to taking the medications. Patient signed med consent form and was placed in chart. -Internal Medicine consult to perform medical evaluation and physical. -NRT -nicotine patch -SW on board for discharge planning. Encourage patient to participate in groups to work on coping skills. 01/17/25 14:37
[2025-01-17 15:20] LABS: Chol/HDL Ratio 5.31 Ratio
[2025-01-17 15:21] LABS: LDL Cholesterol,Calculated 128.6 mg/dL (0.0-131.0)
[2025-01-17] MEDS: MIRTAZAPINE 15 MG TAB PO SCH (20:53)
[2025-01-17] MEDS: PRAMIPEXOLE 0.25 MG TAB PO SCH (20:54)
[2025-01-18] MEDS: MULTIVITAMINS, THERA 1 EACH TAB PO SCH (11:06)
[2025-01-18] MEDS: THIAMINE 100 MG TAB PO SCH (11:06)
[2025-01-18] MEDS: FOLIC ACID 1 MG TAB PO SCH (11:06)
[2025-01-18] MEDS: FLUoxetine HCL 20 MG CAP PO STA (12:08)
--- NOTE | 2025-01-18 12:35 | P.PN ---
Progress Note - Text Progress Note Date: 01/18/25 Interval History: Patient was seen in the [facility] and was directable and agreeable to speak with press writer in the office. CIWA's have been negative. Patient reports vomiting twice yesterday after meals and once this morning. She reports sleeping well overnight. She states her depression waxes and waning depending on what she is doing throughout the day but noted that when she is not involved in something her depression worsens as she is with her thoughts. She reports increased anxiety at nighttime however she was unable to fill her hydroxyzine at [facility] as they would not continue that medication. Patient continues to express suicidal ideations, unable to note if they have improved or worsened due to her being tired. Patient is agreeable with rehab given her alcohol use, denying any withdrawal symptoms. At this time patient denies any homicidal ideations, intent or plan. Patient denies any auditory, visual hallucinations and denies any paranoia or delusions. Patient denies any side effects from the medications and has been compliant with meds. Mental Status Exam: General Appearance: Patient appears to be stated age is alert, directable, and cooperative. She has blond dyed hair and is overweight Behavior: Patient is calmly seated without any agitated behavior. Speech: Patient's speech is fluent and nonpressured. Mood/Affect: Mood is improving mildly, affect is congruent and blunted but reactive. Suicidality/Homicidality: Patient denies having any homicidal ideation intent or plan. She reports suicidal ideations Perceptions: Patient denies any visual hallucinations and denies any auditory hallucinations Though content/process: There is no evidence of any delusional thought content and thought process is linear and goal-directed. Memory and concentration: AOX3, grossly intact for the purposes of this session Judgment and insight: Improving mildly Assessment Major depressive disorder, recurrent, severe Suicide attempt via OD Generalized anxiety disorder Alcohol use disorder, severe Cannabis use disorder Nicotine dependence Cluster B traits Plan: -Patient continues to meet criteria for inpatient psychiatric admission for symptom stabilization and safety. Patient has signed adult voluntary form and medication consent and was placed in patient's chart. -Medications: Increase Prozac to 40 mg daily for depression/anxiety, increase propranolol to 10 mg 3 times daily for anxiety (VSS), continue Remeron 7.5 mg at bedtime for insomnia/mood/appetite, Mirapex 0.25 mg at bedtime for RLS, melatonin 10 mg at bedtime for insomnia, discontinue Vistaril 25 mg at bedtime for insomnia -When necessary Zyprexa and hydroxyzine for agitation/aggression. -Labs: Reviewed, lipid panel elevated, will defer treatment to PCP and encouraged lifestyle modifications -NRT -nicotine patch -CIWA protocol with Ativan PRN for ETOH withdrawal. -SW on board for discharge planning. Encouraged the patient to participate in milieu. Anticipate discharge early next week to rehab
[2025-01-18] MEDS: PROPRANOLOL 10 MG TAB PO SCH (15:49)
[2025-01-18] MEDS: ONDANSETRON ODT 8 MG TAB.RAPDIS PO PRN (17:25)
[2025-01-18] MEDS: IBUPROFEN 600 MG TAB PO PRN (20:49)
--- NOTE | 2025-01-18 22:45 | HP ---
HISTORY AND PHYSICAL CHIEF COMPLAINT: Overdose, major depression, and suicidal thoughts. HISTORY OF PRESENT ILLNESS: This 24-year-old female came to the emergency room after she had taken an overdose of propranolol and Vistaril stating that she wanted to . REVIEW OF SYSTEMS: She has no new complaints, although she was slightly nauseated. Past medical history, family history, and personal and social histories reveal that she is on, 1. Propranolol. 2. Hydroxyzine. 3. Fluoxetine. 4. Pramipexole. 5. Omeprazole. The rest of her history is unremarkable and noncontributory. She does smoke. PHYSICAL EXAMINATION: VITAL SIGNS: Normal. The rest of her physical is deferred because she was not available at the time that consult was placed. IMPRESSION: 1. Major depression. 2. Suicidal personality. 3. Drug ingestion and overdose. RECOMMENDATIONS: None. Thank you respectfully, JADE / JIGAR: [id number] /
[2025-01-19] MEDS: FLUoxetine HCL 20 MG CAP PO SCH (08:54)
--- NOTE | 2025-01-19 12:31 | P.PN ---
Progress Note - Text Progress Note Date: 01/19/25 Interval History: Patient was seen in bed and was directable and agreeable to speak with typewriter repairer in the office. She reports some irritability related to her mother not being able to drop off her close. Patient has been using adequate coping skills including journaling, reporting up-and-down depression. She does mention her suicidal thoughts has improved, calling them more so intrusive thoughts as she does not align with them, no plan or intent. She reports her anxiety is better, sleeping better. She denied any vomiting today but did report some mild nausea. She did contact access yesterday for rehab given her severe alcohol use prior to admission. At this time patient denies any homicidal ideations, intent or plan. Patient denies any auditory, visual hallucinations and denies any paranoia or delusions. Patient denies any side effects from the medications and has been compliant with meds. Mental Status Exam: General Appearance: Patient appears to be stated age is alert, directable, and cooperative. She has blond dyed hair, overweight Behavior: Patient is calmly seated without any agitated behavior. Speech: Patient's speech is fluent and nonpressured. Mood/Affect: Mood is improving mildly, affect is congruent and blunted. Suicidality/Homicidality: Patient denies having any homicidal ideation intent or plan. Patient reports her suicidal ideations have lessened in intensity, no plan or intent Perceptions: Patient denies any visual hallucinations and denies any auditory hallucinations Though content/process: There is no evidence of any delusional thought content and thought process is linear and goal-directed. Memory and concentration: AOX3, grossly intact for the purposes of this session Judgment and insight: Improving mildly Assessment Major depressive disorder, recurrent, severe Suicide attempt via OD Generalized anxiety disorder Alcohol use disorder, severe Cannabis use disorder Nicotine dependence Cluster B traits Plan: -Patient continues to meet criteria for inpatient psychiatric admission for symptom stabilization and safety. Patient has signed adult voluntary form and medication consent and was placed in patient's chart. -Medications: Continue Prozac 40 mg daily for depression/anxiety, propranolol 10 mg 3 times daily for anxiety, Remeron 7.5 mg at bedtime for insomnia/mood/appetite, Mirapex 0.25 mg at bedtime for RLS, melatonin 10 mg at bedtime for insomnia -When necessary hydroxyzine and Zyprexa for agitation/aggression. -Labs: Reviewed, lipid panel elevated will defer treatment to PCP and encouraged lifestyle modifications -NRT -nicotine patch -CIWA protocol with Ativan PRN for ETOH withdrawal. -SW on board for discharge planning. Encouraged the patient to participate in milieu. Anticipate discharge on Wednesday to rehab pending stabilization in suicidal thoughts
[2025-01-19] MEDS: PANTOPRAZOLE 40 MG TABLET PO SCH (21:26)
[2025-01-20] MEDS: FLUoxetine HCL 20 MG CAP PO SCH (08:37)
--- NOTE | 2025-01-20 11:11 | P.PN ---
Progress Note - Text Progress Note Date: 01/20/25 Interval history: Patient was seen in the [facility] and was directable and agreeable to speak with underwriter mortgage loan. She does report some sleep difficulties overnight described as restlessness. Patient was goal oriented today, is hopeful about discharge to rehab. She reports an increase in sweating however is unclear if this is due to the heat in her room or medications. She has been social with peers on the unit. At this time patient denies any suicidal or homicidal ideations intent or plan. Denies any auditory or visual hallucinations. Patient denies any side effects from the medications and has been compliant with meds. Mental status exam: General Appearance: Patient appears to be stated age is alert, directable, and cooperative. She has, overweight Behavior: No agitated behavior. Patient is calm and directable Speech: Patient's speech is fluent and nonpressured. Mood/Affect: Mood is improving mildly, affect is congruent and constricted. Suicidality/Homicidality: Patient denies having any suicidal or homicidal ideation intent or plan. Perceptions: Patient denies any auditory or visual hallucinations. Though content/process: There is no evidence of any delusional thought content and thought process is linear and goal-directed. Memory and concentration: AOX3, grossly intact for the purposes of this session Judgment and insight: improving mildly Assessment/Plan: Continue with current diagnosis. Patient continues to meet criteria for inpatient psychiatric admission for symptom stabilization and safety. Patient will be maintained on current psychotropic medication regimen other than the following: Increase Mirapex to 0.5 mg at bedtime for RLS, increase Prozac to 60 mg daily for depression/anxiety. Monitor for medication compliance and for any psychotropic medication side effects. Will continue to monitor ongoing response to treatment. Encouraged participation in milieu.
[2025-01-20] MEDS: PRAMIPEXOLE 0.5 MG TAB PO SCH (20:08)
[2025-01-21] MEDS: FLUoxetine HCL 20 MG CAP PO SCH (08:42)
--- NOTE | 2025-01-21 11:21 | P.PN ---
Progress Note - Text Progress Note Date: 01/21/25 Interval history: Patient was seen in group and was directable and agreeable to speak with typewriter mechanic. She expressed no concerns today, stated she spoke to her friend who is willing to have her stay there while she awaits rehab. She expresses some back pain which is related to her previous epidural and is agreeable with trying lidocaine patch today. She has been journaling, utilizing coping skills however did report becoming angry at her mother on the phone yesterday she was encouraged to limit her conversations with her given this trigger. At this time patient denies any suicidal or homicidal ideations, intent or plan. Patient denies any auditory, visual hallucinations and denies any paranoia or delusions. Patient denies any side effects from the medications and has been compliant with meds.. At this time patient denies any suicidal or homicidal ideations intent or plan. Denies any auditory or visual hallucinations. Patient denies any side effects from the medications and has been compliant with meds. Mental status exam: General Appearance: Patient appears to be stated age is alert, directable, and cooperative. She has blond hair, overweight Behavior: No agitated behavior. Patient is calm and directable Speech: Patient's speech is fluent and nonpressured. Mood/Affect: Mood is improving mildly, affect is congruent and reactive Suicidality/Homicidality: Patient denies having any suicidal or homicidal ideation intent or plan. Perceptions: Patient denies any auditory or visual hallucinations. Though content/process: There is no evidence of any delusional thought content and thought process is linear and goal-directed. Memory and concentration: AOX3, grossly intact for the purposes of this session Judgment and insight: improving mildly Assessment/Plan: Continue with current diagnosis. Patient continues to meet criteria for inpatient psychiatric admission for symptom stabilization and safety. Patient will be maintained on current psychotropic medication regimen other than the following: Increase Prozac to 80 mg daily today for depression/anxiety. Monitor for medication compliance and for any psychotropic medication side effects. Will continue to monitor ongoing response to treatment. Encouraged participation in milieu.
[2025-01-21] MEDS: LIDOCAINE 4% PATCH TOPICAL ONE (11:59)
[2025-01-22 08:53] VITALS: RESP 16
[2025-01-22] MEDS: LIDOCAINE 4% PATCH TOPICAL ONE (11:41)
--- NOTE | 2025-01-22 13:09 | P.PN ---
Progress Note - Text Progress Note Date: 01/22/25 Interval History: [facility] and was directable and agreeable to speak with contract technical writer in the office. Patient displays bright affect, social with peers. She reports sleeping well with the increase in Mirapex. She reports ongoing issues with her mother and she ended up withdrawing an DOLLY for her as she does not want her involved in her care. Patient was informed that she was denied at [facility] to which she took the news relatively well. She was encouraged to reach out to [facility] as an alternative and in the meantime get reconnected with her sponsor and attend AA meetings given her concerns about relapse. Patient states she plans on returning to either her friend's house or her ex mother's house. She states noting that her sleep is improved when she takes as needed hydroxyzine and thus this will be restarted tonight. At this time patient denies any suicidal or homicidal ideations, intent or plan. Patient denies any auditory, visual hallucinations and denies any paranoia or delusions. Patient denies any side effects from the medications and has been compliant with meds. Mental Status Exam: General Appearance: Patient appears to be stated age is alert, directable, and cooperative. She is overweight Behavior: Patient is calmly seated without any agitated behavior. Speech: Patient's speech is fluent and nonpressured. Mood/Affect: Mood is improving mildly, affect is congruent and bright, reactive. Suicidality/Homicidality: Patient denies having any suicidal or homicidal ideation intent or plan. Perceptions: Patient denies any visual hallucinations and denies any auditory hallucinations Though content/process: There is no evidence of any delusional thought content and thought process is linear and goal-directed. Memory and concentration: AOX3, grossly intact for the purposes of this session Judgment and insight: Improving mildly Assessment Major depressive disorder, recurrent, severe Suicide attempt via OD Generalized anxiety disorder Alcohol use disorder, severe Cannabis use disorder Nicotine dependence Cluster B traits Plan: -Patient continues to meet criteria for inpatient psychiatric admission for symptom stabilization and safety. Patient has signed adult voluntary form and medication consent and was placed in patient's chart. -Medications: Continue Prozac 80 mg daily for depression/anxiety, propranolol 10 mg 3 times daily for anxiety, Remeron 7.5 mg at bedtime for insomnia/mood, Mirapex 0.5 mg at bedtime for RLS, melatonin 10 mg at bedtime for insomnia, restart hydroxyzine 25 mg at bedtime for insomnia -When necessary Ativan and Haldol for agitation/aggression. -Labs: Reviewed, will defer for elevated lipid panel to PCP -NRT -nicotine patch -SW on board for discharge planning. Encouraged the patient to participate in milieu. Patient to be discharged to friend's or ex mother's house tomorrow
[2025-01-22] MEDS: hydrOXYzine pamoate 25 MG CAP PO SCH (21:23)
[2025-01-23 08:51] VITALS: BP 123/98; PULSE 94; TEMP 97.3
[2025-01-23] MEDS: MAG HYDROX/AL HYDROX/SIMETH 355 ML BOTTLE PO PRN (09:40)
--- NOTE | 2025-01-23 11:45 | P.DS ---
Providers Date of admission: 01/16/25 16:26 Expected date of discharge: 01/23/25 Attending physician: Alissa Wasserman MD Consults: 01/16/25 16:29 Consult Physician Routine Consulting Provider: Lonny Cavanaugh Consult Reason/Comments: history and physical Do you want consulting provider notified?: Yes Primary care physician: Lonny Cavanaugh - Discharge Diagnosis(es) (1) Major depressive disorder, recurrent episode, severe Current Visit: Yes Status: Acute Priority: High (2) Suicide attempt Current Visit: Yes Status: Acute Priority: High (3) Cluster B personality disorder Current Visit: Yes Status: Chronic Priority: Low (4) Generalized anxiety disorder Current Visit: Yes Status: Acute Priority: Medium (5) Alcohol use disorder, severe, dependence Current Visit: Yes Status: Acute Priority: High (6) Cannabis use disorder Current Visit: Yes Status: Acute Priority: Medium (7) Tobacco use disorder Current Visit: Yes Status: Acute Priority: Low Hospital Course: Admission HPI: Admission note was completed by appeals writer "Patient presented to the hospital with overdose on "handful" of propranolol 10 mg and Vistaril 50 mg. Per EPS note, "Pt brought into the ED via EMS after an overdose on Inderal and Vistaril. EPS RN in to assess pt. Pt laying in bed, opened her eyes and sat up when her name was stated. Pt has a flat affect, reports taking a handful of inderal and vistaril in an attempt to suicide. Pt continues to report thoughts to overdose and does not feel safe at this time. Unable to report current triggers. Pt states she had been living at [facility] but was kicked out about 2 months ago after her 3yo daughter left a stove on, currently living with various friends, daughter currently with her mother. Pt a/ox4, denies HI, delusions or AVH." Patient seen and evaluated on the unit and was agreeable with speaking to appeals writer in office. She states being kicked out of [facility] about 2 months ago after her daughter had turned on the gas stove which caused a violation order. She states since then her mother has taken her daughter in however she is not able to live with her mother due to past conflict and that she has been staying at various friends' houses. Patient states about a month prior to getting kicked out of [facility] she also stopped her medications stating this was due to her feeling depressed and not feeling motivated to take it. Patient states on the day of the suicide attempt she impulsively took a handful of her pills and then her cousin reportedly found her collapsed on the bathroom floor and contacted the ambulance. She states her daughter was there at that time. Patient reports predominant depressive symptoms including sleep difficulties, both increase and decrease in appetite, low energy, hopelessness, poor concentration. She reports continuous suicidal ideations with a plan to overdose, no intent while in the hospital. Patient also reports anxiety that appears generalized in nature. Patient denies any homicidal ideations intent or plan. At this time patient denies any auditory or visual hallucinations. Patient denies any flight of ideas racing thoughts and increased in goal directed behavior. Patient admits to using 1/5 of hard liquor roughly 3 times per week, denied any previous withdrawal symptoms or seizures, reported smoking cannabis wax daily and smoking cigarettes." Hospital course: Upon admission to the unit patient was directable and agreeable to commence treatment and signed adult voluntary form.. Patient got along well with other patients on the unit and followed unit protocol. Patient was compliant with the medications and denied any side effects throughout hospital course. Patient was started on Prozac and this was increased to 80 mg daily for depression/anxiety, propranolol increased to 10 mg 3 times daily for anxiety, Remeron 7.5 mg at bedtime for insomnia/mood, Mirapex increased to 0.5 mg at bedtime for RLS, melatonin 10 mg at bedtime for insomnia, hydroxyzine 25 mg at bedtime for insomnia. Patient spoke of her stressors and engaged in therapy both group and individual. Patient was also seen by medical team for history and physical exam. Patient's lipid panel was elevated however will defer treatment to her outpatient PCP. Throughout the course of the hospitalization patient gradually improved with regards to mood, anxiety, sleep and returned back to their baseline level of functioning became more future oriented with improved insight and judgment. On the day of discharge patient denied any suicidal or homicidal ideations intent or plan denied any auditory or visual hallucinations. The patient denied any access to guns or weapons. Patient denied any paranoia and did not endorse any delusions. Patient does have a significant history of substance abuse and was counseled on abstaining from all substances including alcohol and marijuana. Patient ended up agreeing to inpatient subtance rehab. Patient was also counseled on the medications and need for regular compliance and was encouraged to follow-up with their outpatient appointment for mental he alth and also for primary care. Patient is scheduled to go to [facility] on 01/25 and will be discharged to her ex's mother's house in the interim. Mental status exam: General Appearance: Patient appears to be stated age is alert, pleasant, and cooperative. Patient is in no acute distress and has fair hygiene and grooming Behavior: Patient is calmly seated without any agitated behavior. Speech: Patient's speech is fluent and nonpressured. Mood/Affect: Patient reports their mood is "better", affect is congruent and euthymic. Suicidality/Homicidality: Patient denies having any suicidal or homicidal ideation intent or plan. Perceptions: Patient denies any auditory or visual hallucinations. Though content/process: There is no evidence of any delusional thought content and thought process is linear and goal-directed. More future oriented Memory and concentration: AOX3, grossly intact for the purposes of this session. Can spell "WORLD" backwards correctly. Judgment and insight: Chronically poor, however has improved with guarded prognosis Impression: Major depressive disorder, recurrent, severe Suicide attempt via OD Generalized anxiety disorder Alcohol use disorder, severe Cannabis use disorder Tobacco use disorder Cluster B traits Plan: -Continue with discharge today as patient has improved and stabilized psychiatrically and is not currently an imminent threat to themself and/or others. Patient will remain at chronically elevated risk for harm to self and/or others due to their impulsivity and substance abuse. -Continue medications: Prozac 80 mg daily, propranolol 10 mg 3 times daily, Remeron 7.5 mg at bedtime, Mirapex 0.5 mg at bedtime, melatonin 10 mg at bedtime, hydroxyzine 25 mg at bedtime -Patient was counseled on the need for medication compliance and appropriate follow-up at mental health and also primary care for medical issues. Patient verbalized understanding and agreed. -Social work to help coordinate patients discharge today arrange for and conduct family meeting to ensure safety upon discharge and answer any questions/concerns. also to ensure safe home environment that guns/weapons are either removed from the home or locked away. Social work also to arrange for patients follow up appointments with [facility] for psychiatric care along with follow up with primary care provider. -Patient counseled on abstaining from recreational drugs and marijuana and alcohol. Was informed/educated on the adverse effects on their physical and mental health. Patient verbally agreed and understood. Patient scheduled to go to [facility] on 02/21/2025 -Patient was instructed to return to the hospital or seek immediate medical care if their psychiatric or medical symptoms do worsen or reoccur. Abnormal Labs 01/15/25 01/16/25 01/16/25 22:40 00:44 02:00 WBC RBC 5.43 H Hct MCV 79.3 L Glucose Unconjugated Bilirubin AST 39 H ALT 60 H Triglycerides Cholesterol HDL Cholesterol Urine Appearance Urine Protein Ur Squamous Epith Cells Urine Bacteria Hyaline Casts Urine Mucus U Marijuana (THC) Screen Detected H 01/16/25 01/17/25 01/17/25 02:00 08:44 10:22 WBC 10.9 H RBC 5.74 H Hct 46.1 H MCV Glucose 109 H Unconjugated Bilirubin 1.2 H AST ALT 63 H Triglycerides 185.00 H Cholesterol 204.00 H HDL Cholesterol 38.40 L Urine Appearance Cloudy H Urine Protein 1+ H Ur Squamous Epith Cells 12 H Urine Bacteria Moderate H Hyaline Casts 9 H Urine Mucus Occasional H U Marijuana (THC) Screen Vital Signs Temp 97.3 F L 01/23/25 08:48 Pulse 94 01/23/25 08:48 Resp 16 01/22/25 21:00 BP 123/98 01/23/25 08:48 Pulse Ox 98 01/23/25 08:48 FiO2 Allergies Allergy/AdvReac Type Severity Reaction Status Date / Time trazodone AdvReac Hallucinati Verified 01/16/25 21:35 ons cats Allergy runny Uncoded 01/16/25 10:07 nose, congestion, itching dust Allergy sneezing, Uncoded 01/16/25 10:07 rash mold Allergy congested, Uncoded 01/16/25 10:07 itchy, stuffy Patient Condition at Discharge: Stable Plan - Discharge Summary New Discharge Prescriptions: New hydrOXYzine HCL [Atarax] 25 mg PO Q8HR PRN 30 Days #60 tab PRN Reason: Anxiety Folic Acid 1 mg PO DAILY 30 Days #30 tab Nicotine 21Mg/24Hr Patch [Habitrol] 1 patch TRANSDERM DAILY 30 Days #30 patch Pramipexole [Mirapex] 0.5 mg PO HS 30 Days #30 tab FLUoxetine HCL [PROzac] 80 mg PO DAILY 30 Days #120 cap Mirtazapine [Remeron] 7.5 mg PO HS 30 Days #15 tab hydrOXYzine pamoate [Vistaril] 25 mg PO HS cap Thiamine [Vitamin B-1] 100 mg PO DAILY 30 Days #30 tab Propranolol [Inderal] 10 mg PO TID 30 Days #90 tab Melatonin 10 mg PO HS 30 Days #60 tab Multivitamins, Thera [Multivitamin (formulary)] 1 each PO DAILY 30 Days #30 tab Pantoprazole [Protonix] 40 mg PO BID 30 Days #60 tab Ondansetron Odt [Zofran ODT] 8 mg PO Q8HR PRN 15 Days #15 tab PRN Reason: Nausea Continue Melatonin 10 mg PO HS 30 Days #60 tab Pramipexole [Mirapex] 0.5 mg PO HS 30 Days #30 tab FLUoxetine HCL [PROzac] 80 mg PO DAILY Discontinued hydrOXYzine pamoate [Vistaril] 50 mg PO DAILY PRN PRN Reason: Anxiety Viloxazine HCl [Qelbree] 100 mg PO DAILY Mirtazapine [Remeron] 15 mg PO HS 30 Days #30 tab Omeprazole 40 mg PO BID 30 Days #60 cap hydrOXYzine pamoate [Vistaril] 100 mg PO HS PRN PRN Reason: Anxiety Propranolol [Inderal] 10 mg PO TID Discharge Medication List Melatonin 10 mg PO HS 30 Days #60 tab 10/06/24 [Rx] Pramipexole [Mirapex] 0.5 mg PO HS 30 Days #30 tab 10/06/24 [Rx] FLUoxetine HCL [PROzac] 80 mg PO DAILY 01/16/25 [History] FLUoxetine HCL [PROzac] 80 mg PO DAILY 30 Days #120 cap 01/23/25 [Rx] Folic Acid 1 mg PO DAILY 30 Days #30 tab 01/23/25 [Rx] Melatonin 10 mg PO HS 30 Days #60 tab 01/23/25 [Rx] Mirtazapine [Remeron] 7.5 mg PO HS 30 Days #15 tab 01/23/25 [Rx] Multivitamins, Thera [Multivitamin (formulary)] 1 each PO DAILY 30 Days #30 tab 01/23/25 [Rx] Nicotine 21Mg/24Hr Patch [Habitrol] 1 patch TRANSDERM DAILY 30 Days #30 patch 01/23/25 [Rx] Ondansetron Odt [Zofran ODT] 8 mg PO Q8HR PRN 15 Days #15 tab 01/23/25 [Rx] Pantoprazole [Protonix] 40 mg PO BID 30 Days #60 tab 01/23/25 [Rx] Pramipexole [Mirapex] 0.5 mg PO HS 30 Days #30 tab 01/23/25 [Rx] Propranolol [Inderal] 10 mg PO TID 30 Days #90 tab 01/23/25 [Rx] Thiamine [Vitamin B-1] 100 mg PO DAILY 30 Days #30 tab 01/23/25 [Rx] hydrOXYzine HCL [Atarax] 25 mg PO Q8HR PRN 30 Days #60 tab 01/23/25 [Rx] hydrOXYzine pamoate [Vistaril] 25 mg PO HS cap 01/23/25 [Rx] Follow up Appointment(s)/Referral(s): Rehab, [facility] [Other] - 01/25/25 11:00 am (Intake 01/25 @ 11:00 ) Lonny Cavanaugh MD [Primary Care Provider] - 1-2 days Patient Instructions/Handouts: How to Stop Smoking (DC), Depression (DC) Activity/Diet/Wound Care/Special Instructions: [facility] Discharge Info Avoid the use of street drugs and alcohol. Take all medications as prescribed. When you are in need of refills on your medications, please contact your outpatient medical provider and/or outpatient psychiatrist. Please go to your scheduled outpatient appointments for aftercare treatment. If symptoms return or become worse, call the crisis line at or and/or visit the nearest emergency room for assistance. National Suicide and Crisis Lifeline - call or text 250 Discharge/Stand Alone Forms: LESLIE Asif Discharge Disposition: HOME SELF-CARE
== END 2025-01-23 12:20 | disposition home or self-care (01) | DRG 751 ==
LOC: EC 22:24 → 3MHU 01-16 16:26
PROVIDERS: ADMIT Psychiatry & Neurology Psychiatry; ATTEND Psychiatry & Neurology Psychiatry
DX: F33.2 Major depressive disorder, recurrent severe without psychotic features (principal); F41.1 Generalized anxiety disorder; F12.10 Cannabis abuse, uncomplicated; F60.89 Other specific personality disorders; G25.81 Restless legs syndrome; G47.00 Insomnia, unspecified; T43.592A Poisoning by other antipsychotics and neuroleptics, intentional self-harm, initial encounter; F43.10 Post-traumatic stress disorder, unspecified; F17.210 Nicotine dependence, cigarettes, uncomplicated; F17.290 Nicotine dependence, other tobacco product, uncomplicated; F10.20 Alcohol dependence, uncomplicated; Z56.0 Unemployment, unspecified; Z59.00 Homelessness unspecified; Z79.899 Other long term (current) drug therapy; Z91.51 Personal history of suicidal behavior
CPT/HCPCS: 36415; 80053; 80061; 80143; 80179; 80306; 80320; 81001; 81025; 82075; 82248; 83036; 84443; 85025; 87635; 93005; 96361; 96374; 99285

== ENCOUNTER 2025-03-26 11:59 | Inpatient (IN) | payer MEDICAID, OTHER ==
--- NOTE | 2025-03-26 13:02 | ED ---
General Adult HPI - General Chief complaint: Psychiatric Symptoms Stated complaint: Mental health eval Time Seen by Provider: 03/26/25 12:00 Source: patient, RN notes reviewed, old records reviewed Mode of arrival: ambulatory Limitations: no limitations - History of Present Illness Initial comments: 24-year-old female presenting for psychiatric evaluation. Patient admits to depression and suicidal ideation. She denies suicide attempt. She states she has been out of her medications for several weeks and had a recent overdose with heroin. She is currently in rehabilitation. No physical complaints. - Related Data Home Medications Medication Instructions Recorded Confirmed FLUoxetine HCL [PROzac] 80 mg PO DAILY 01/16/25 01/16/25 Previous Rx's Medication Instructions Recorded Melatonin 10 mg PO HS 30 Days #60 tab 10/06/24 Pramipexole [Mirapex] 0.5 mg PO HS 30 Days #30 tab 10/06/24 FLUoxetine HCL [PROzac] 80 mg PO DAILY 30 Days #120 cap 01/23/25 Folic Acid 1 mg PO DAILY 30 Days #30 tab 01/23/25 Melatonin 10 mg PO HS 30 Days #60 tab 01/23/25 Mirtazapine [Remeron] 7.5 mg PO HS 30 Days #15 tab 01/23/25 Multivitamins, Thera [Multivitamin 1 each PO DAILY 30 Days #30 tab 01/23/25 (formulary)] Nicotine 21Mg/24Hr Patch [Habitrol] 1 patch TRANSDERM DAILY 30 Days 01/23/25 #30 patch Ondansetron Odt [Zofran ODT] 8 mg PO Q8HR PRN 15 Days #15 tab 01/23/25 Pantoprazole [Protonix] 40 mg PO BID 30 Days #60 tab 01/23/25 Pramipexole [Mirapex] 0.5 mg PO HS 30 Days #30 tab 01/23/25 Propranolol [Inderal] 10 mg PO TID 30 Days #90 tab 01/23/25 Thiamine [Vitamin B-1] 100 mg PO DAILY 30 Days #30 tab 01/23/25 hydrOXYzine HCL [Atarax] 25 mg PO Q8HR PRN 30 Days #60 tab 01/23/25 hydrOXYzine pamoate [Vistaril] 25 mg PO HS cap 01/23/25 Allergies Allergy/AdvReac Type Severity Reaction Status Date / Time trazodone AdvReac Hallucinati Verified 03/26/25 12:13 ons cats Allergy runny Uncoded 03/26/25 12:13 nose, congestion, itching dust Allergy sneezing, Uncoded 03/26/25 12:13 rash mold Allergy congested, Uncoded 03/26/25 12:13 itchy, stuffy Review of Systems ROS Statement: Those systems with pertinent positive or pertinent negative responses have been documented in the HPI. ROS Other: All systems not noted in ROS Statement are negative. Past Medical History Past Medical History: GERD/Reflux Additional Past Medical History / Comment(s): Abd pain, severe gastritis, cannabinoid hyperemesis syndrome History of Any Multi-Drug Resistant Organisms: None Reported Past Surgical History: Cholecystectomy Additional Past Surgical History / Comment(s): wisdom teeth removed, zoraida in august of 2018 Past Anesthesia/Blood Transfusion Reactions: No Reported Reaction Past Psychological History: Anxiety, Depression, PTSD Smoking Status: Current some day smoker, Vaper Past Alcohol Use History: None Reported, Occasional Past Drug Use History: Marijuana - Past Family History Mother Family Medical History: Asthma General Exam Limitations: no limitations General appearance: alert, in no apparent distress Head exam: Present: atraumatic, normocephalic Eye exam: Present: normal appearance, PERRL ENT exam: Present: normal exam Respiratory exam: Present: normal lung sounds bilaterally. Absent: respiratory distress, wheezes Cardiovascular Exam: Present: regular rate, normal rhythm GI/Abdominal exam: Present: soft. Absent: distended, tenderness Extremities exam: Present: normal inspection, normal capillary refill Neurological exam: Present: alert, oriented X3, CN II-XII intact. Absent: motor sensory deficit Psychiatric exam: Present: depressed, anxious, suicidal ideation Skin exam: Present: warm, dry, intact Course Vital Signs 03/26/25 12:07 Temperature 98 F Pulse Rate 78 Respiratory 18 Rate Blood Pressure 125/79 O2 Sat by Pulse 95 Oximetry Medical Decision Making - Medical Decision Making Was pt. sent in by a medical professional or institution (, PA, [employer], urgent care, hospital, or longterm...) When possible be specific @ -No Did you speak to anyone other than the patient for history (EMS, parent, family, police, friend...)? What history was obtained from this source @ -No Did you review nursing and triage notes (agree or disagree)? Why? @ -I reviewed and agree with nursing and triage notes Were old charts reviewed (outside hosp., previous admission, EMS record, old EKG, old radiological studies, urgent care reports/EKG's, longterm records)? Report findings @ -No old charts were reviewed Differential Mental Health Depression, anxiety, bipolar, psychosis, schizophrenia, borderline personality, situational depression, adjustment disorder, behavioral disorder, brain tumor, malingering, substance abuse, encephalopathy, medication reaction, dementia, hypothyroidism, degenerative neurologic disorder, lupus.... This is not meant to be all-inclusive list EKG interpreted by me (3pts min.). @ -As above X-rays interpreted by me (1pt min.). @ -None done CT interpreted by me (1pt min.). @ -None done U/S interpreted by me (1pt. min.). @ -None done What testing was considered but not performed or refused? (CT, X-rays, U/S, labs)? Why? @ -None What meds were considered but not given or refused? Why? @ -None Did you discuss the management of the patient with other professionals (professionals i.e. DrMonica, PA, [employer], lab, RT, psych nurse, school social worker, criminal lawyer, teacher, consumer safety officer, test case developer)? Give summary @Patient evaluated by EPS and felt to require inpatient psychiatric care. Was smoking cessation discussed for >3mins.? @ -No Was critical care preformed (if so, how long)? @ -No Were there social determinants of health that impacted care today? How? (Homelessness, low income, unemployed, alcoholism, drug addiction, transportation, low edu. Level, literacy, decrease access to med. care, custodial, rehab)? @ -No Was there de-escalation of care discussed even if they declined (Discuss DNR or withdrawal of care, Hospice)? DNR status @ -No What co-morbidities impacted this encounter? (DM, HTN, Smoking, COPD, CAD, Cancer, CVA, ARF, Chemo, Hep., AIDS, mental health diagnosis, sleep apnea, morbid obesity)? @Depression Was patient admitted / discharged? Hospital course, mention meds given and route, prescriptions, significant lab abnormalities, going to OR and other pertinent info. @ -24-year-old female presenting with depression and suicidal ideation. Patient was medically cleared and evaluated by EPS and felt to require inpatient psychiatric treatment. She will be admitted to this institution. Undiagnosed new problem with uncertain prognosis? @ -No Drug Therapy requiring intensive monitoring for toxicity (Heparin, Nitro, Insulin, Cardizem)? @ -No Were any procedures done? @ -No Diagnosis/symptom? @ -Depression, suicidal ideation Acute, or Chronic, or Acute on Chronic? @ -[Acute Uncomplicated (without systemic symptoms) or Complicated (systemic symptoms)? @ -Default Side effects of treatment? @ -No Exacerbation, Progression, or Severe Exacerbation? @ -No Poses a threat to life or bodily function? How? (Chest pain, [place], [place], pneumonia, PE, COPD, DKA, ARF, appy, cholecystitis, CVA, Diverticulitis, Homicidal, Suicidal, threat to staff... and all critical care pts) @ -Yes, self-harm Disposition Clinical Impression: Suicidal ideation, Depression Disposition: ADMITTED IP TO THIS [facility] Condition: Stable Is patient prescribed a controlled substance at d/c from ED?: No Referrals: Lonny Cavanaugh MD [Primary Care Provider] - 1-2 days Time of Disposition: 14:39
[2025-03-26 15:07] LABS: Amphetamine Screen,Urine Not Detected (NotDetected); Barbiturate Screen,Urine Not Detected (NotDetected); Benzodiazepines Screen,Urine Not Detected (NotDetected); Cocaine Screen,Urine Not Detected (NotDetected); Methadone Screen, Urine Not Detected (NotDetected); Opiate Screen,Urine Not Detected (NotDetected); Oxycodone Screen, Urine Not Detected (NotDetected); Phencyclidine Screen,Urine Not Detected (NotDetected); Tricyclic Antidepressant,Urine Not Detected (NotDetected); Urn Cannabinoid Scrn Detected (NotDetected)
[2025-03-26] MEDS ORDERED: IBUPROFEN 600 MG TAB PO PRN (22:34)
[2025-03-26] MEDS ORDERED: MAG HYDROX/AL HYDROX/SIMETH 355 ML BOTTLE PO PRN (22:34)
[2025-03-26] MEDS ORDERED: LORazepam 2 MG/ML INJ IM PRN (22:34)
[2025-03-26] MEDS ORDERED: haloperidoL 5 MG TAB PO PRN (22:34)
[2025-03-26] MEDS ORDERED: HALOPERIDOL LACTATE 5 MG/ML 1 ML VIAL IM PRN (22:34)
[2025-03-26] MEDS ORDERED: MAGNESIUM HYDROXIDE 2,400 MG/30 ML CUP PO PRN (22:34)
[2025-03-26] MEDS ORDERED: ACETAMINOPHEN TAB 325 MG TAB PO PRN (22:34)
[2025-03-26] MEDS: QUEtiapine 50 MG TAB PO PRN (22:57)
[2025-03-26] MEDS: LORazepam 1 MG TAB PO PRN (22:57)
[2025-03-27 06:55] LABS: Appearance,Urine Cloudy (Clear); Bilirubin,Urine Negative (Negative); Blood,Urine Negative (Negative); Color,Urine Yellow; Glucose,Urine (UA) Negative (Negative); Ketones,Urine Negative (Negative); Leukocyte Esterase,Urine Negative (Negative); Mucus,Urine Rare /hpf; Nitrite,Urine Negative (Negative); PH, Urine 5.5 (5.0-8.0); Protein,Urine Negative (Negative); RBC,Urine 1 /hpf (0-5); Specific Gravity,Urine 1.024 (1.001-1.035); Squamous Epithelial Cell,Urine 13 /hpf (0-4); Urobilinogen,Urine <2.0 mg/dL (<2.0); WBC,Urine 2 /hpf (0-5)
[2025-03-27] MEDS: NICOTINE 14MG/24HR PATCH TRANSDERM SCH (08:59)
[2025-03-27] MEDS ORDERED: hydrOXYzine pamoate 25 MG CAP PO PRN (11:23)
--- NOTE | 2025-03-27 11:57 | P.HP ---
Psychiatric H&P - . H&P Date: 03/27/25 History & Physical: Allergies Allergy/AdvReac Type Severity Reaction Status Date / Time trazodone AdvReac Hallucinati Verified 03/26/25 16:23 ons cats Allergy runny Uncoded 03/26/25 16:23 nose, congestion, itching dust Allergy sneezing, Uncoded 03/26/25 16:23 rash mold Allergy congested, Uncoded 03/26/25 16:23 itchy, stuffy Vital Signs Temp 97.8 F 03/26/25 23:09 Pulse 104 H 03/26/25 23:09 Resp 18 03/26/25 23:09 BP 156/80 03/26/25 23:09 Pulse Ox 97 03/26/25 23:09 FiO2 Intake & Output 03/26/25 03/27/25 03/27/25 18:59 06:59 18:59 Weight 117.934 kg 123.377 kg Laboratory Last Values Urine Color Yellow 03/26/25 14:32 Urine Appearance Cloudy (Clear) H 03/26/25 14:32 Urine pH 5.5 (5.0-8.0) 03/26/25 14:32 Ur Specific [place] 1.024 (1.001-1.035) 03/26/25 14:32 Urine Protein Negative (Negative) 03/26/25 14:32 Urine Glucose (UA) Negative (Negative) 03/26/25 14:32 Urine Ketones Negative (Negative) 03/26/25 14:32 Urine Blood Negative (Negative) 03/26/25 14:32 Urine Nitrite Negative (Negative) 03/26/25 14:32 Urine Bilirubin Negative (Negative) 03/26/25 14:32 Urine Urobilinogen <2.0 mg/dL (<2.0) 03/26/25 14:32 Ur Leukocyte Esterase Negative (Negative) 03/26/25 14:32 Urine RBC 1 /hpf (0-5) 03/26/25 14:32 Urine WBC 2 /hpf (0-5) 03/26/25 14:32 Ur Squamous Epith Cells 13 /hpf (0-4) H 03/26/25 14:32 Urine Mucus Rare /hpf (None) H 03/26/25 14:32 Urine HCG, Qual Not Detected (Not Detectd) 03/26/25 14:32 Urine Opiates Screen Not Detected (NotDetected) 03/26/25 14:32 Ur Oxycodone Screen Not Detected (NotDetected) 03/26/25 14:32 Urine Methadone Screen Not Detected (NotDetected) 03/26/25 14:32 Ur Barbiturates Screen Not Detected (NotDetected) 03/26/25 14:32 U Tricyclic Antidepress Not Detected (NotDetected) 03/26/25 14:32 Ur Phencyclidine Scrn Not Detected (NotDetected) 03/26/25 14:32 Ur Amphetamines Screen Not Detected (NotDetected) 03/26/25 14:32 U Methamphetamines Scrn Not Detected (NotDetected) 03/26/25 14:32 U Benzodiazepines Scrn Not Detected (NotDetected) 03/26/25 14:32 Urine Cocaine Screen Not Detected (NotDetected) 03/26/25 14:32 U Marijuana (THC) Screen Detected (NotDetected) H 03/26/25 14:32 SARS-CoV-2 (PCR) Not Detected (Not Detectd) 03/26/25 14:22 03/27/25 11:10 IDENTIFYING DATA: Patient is a 24-year-old female, currently living at [facility] and unemployed HPI: Patient presented to the hospital yesterday and was seen by EPS and as per note "Cl presents awake sitting in bed A/O x4 brought in by [facility] carpenter wooden tank erecting due to depression w SI w plans. Cl states " I have not had my medications for awhile due to not being able to get them at [facility] because I have IOP at [facility], and have to get my medication from my primary care doctor. I haven't been able to get into see him." Cl goes on to state " Over the past couple weeks my depression has gotten worse, I am anxious, overwhelmed, and frustrated by personal and family issues. I have no motivation, can;t get out of bed, don't have any energy to even shower, I just want to sleep. I am worried about relapse and have been having thoughts of contacting my sisters exboyfriend for heroin so I can overdose and just . I have never done heroin, but I know people can OD on it. It's either that or jump off the overpass by my Mom's." Cl rep orts ongoing familial stress related to her child, involving her mother. " I feel like everyone is out to get me or make things hard for me." Cl presents flat affect, unkempt, anxious, loss of interest, low motivation, low energy, poor self care, trouble taking care of her children, ovewhelmed, helpless, hopeless. Cl also disclosed self harm hx via cutting / burning last episode 09/2024. Edna gement/insight/impulse control: poor ADLS: fair sleep/bill: poor/ decreased. " Patient was seen today laying in bed agreeable to speak to creative services writer. Claims that she has been out of her medications for quite some time. Claims that she has been having an increase in stressors in her life, claims that she was kicked out of [facility] and had to come back to the hospital. Claims that she is not allowed to stay with her mother. Claims that she cannot get her medications refilled as she was previously at [facility], claims that she was close from [facility]. Claims that she has been off her medications for over a month. Claims that she has been endorsing depression has been fairly irritable and anxious. He was also having suicidal thoughts and no specific plan. Claims that she spoke with her therapist about this and her therapist told her to come to the hospital. Claims her sleeping and poor appetite has been on and off. Denies any homicidal ideations. At this time patient denies any auditory or visual hallucinations. Patient denies any flight of ideas racing thoughts and increased in goal directed behavior. Patient claims that she uses cannabis recreationally, also endorses using cigarettes denies any recreational drug use. Urine drug screen was positive for THC. PAST PSYCHIATRIC HISTORY: Patient has a history of MDD, QIAN, polysubstance use disorder. Patient denies being on any psychiatric medications, claims that she has been off medications for over a month. Claims that she was previously on Prozac and Inderal Remeron Mirapex and melatonin and also Vistaril. Patient r eports 7 total inpatient hospitalizations most recent being at this facility back in January 2025. Patient denies any psychiatric outpatient follow-up. Patient reports 1 previous suicide attempt where she attempted to overdose a few months ago. PMH: as per ER note ALLERGIES: as per EMR SUBSTANCE USE HISTORY: As per HPI FAMILY PSYCHIATRIC/SUBSTANCE USE HISTORY: Patient states her brother has bipolar disorder and that her mother has depression and has abused alcohol and heroin in the past. SOCIAL HISTORY: Patient is single and has 1 daughter who is currently living at her grandmother's house. Patient is currently homeless and unemployed, couch surfing. Patient ultimately dropped out of school after being expelled during her freshman year MENTAL STATUS EXAM: General Appearance: Patient appears to be overweight, several tattoos, stated age is alert, directable, and attempts to cooperate. Patient appears to have fair hygiene and grooming has blond dyed hair Behavior: Patient is seated without any agitated behavior. She is intermittently upset. Appears anxious Speech: Patient's speech is fluent and nonpressured. [place] Mood/Affect: Patient reports their mood is depressed and anxious, affect is congruent Suicidality/Homicidality: Patient denies having any homicidal ideation intent or plan. She reports suicidal ideations with no specific plan Perceptions: Patient denies any visual hallucinations and denies any auditory hallucinations Though content/process: There is no evidence of any delusional thought content and thought process is linear and goal-directed. Memory and concentration: AOX3, grossly intact for the purposes of this session. Can spell "WORLD" backwards Judgment and insight: Poor STRENGTHS/WEAKNESSES: strength is that patient is resilient and has her daughter to live for. Weakness is that patient has poor judgment and is impulsive INTELLECT: Average IMPRESSIONS: Major depressive disorder, recurrent, severe suicidal ideations Generalized anxiety disorder Cannabis use disorder Nicotine dependence Cluster B traits PLAN: -Patient is admitted under voluntary status to [facility]HU for stabilization of psychiatric symptoms and safety. Patient has signed adult voluntary form and medication consent and is placed in patient's chart. -Medications : Remeron 15 mg at bedtime for insomnia/mood/appetite, restart Prozac 20 milligrams daily for depression/anxiety, propranolol 20 mg daily for anxiety, Vistaril 50 mg at bedtime for insomnia, with as needed for anxiety, Mirapex at 0.25 mg at bedtime for RLS, melatonin 10 mg at bedtime for insomnia -Hydroxyzine and ativan PRN for agitation/aggression -Patient was counselled on substance abuse and desired to cut back on use, she is agreeable to return back to [facility]. -Patient was informed of the risks, benefits and side effects of the medication and patient verbally consented to taking the medications. Patient signed med consent form and was placed in chart. Insulation Inspector offered medication information however patient declined it. -Internal Medicine consult to perform medical evaluation and physical. -NRT -nicotine patch -SW on board for discharge planning. Encourage patient to participate in groups to work on coping skills.
[2025-03-27] MEDS: THIAMINE 100 MG TAB PO SCH (12:07)
[2025-03-27] MEDS: NICOTINE 21MG/24HR PATCH TRANSDERM SCH (12:07)
[2025-03-27] MEDS: MULTIVITAMINS, THERA 1 EACH TAB PO SCH (12:07)
[2025-03-27] MEDS: PANTOPRAZOLE 40 MG TABLET PO SCH (12:07)
[2025-03-27] MEDS: PROPRANOLOL 20 MG TAB PO SCH (12:07)
[2025-03-27] MEDS: FLUoxetine HCL 20 MG CAP PO SCH (12:07)
[2025-03-27] MEDS: LIDOCAINE 4% PATCH TOPICAL SCH (12:08)
[2025-03-27 12:13] LABS: Basophils # (A) 0.04 10*3/uL (0.00-0.10); Basophils % (A) 0.4 %; Eosinophils # (A) 0.23 10*3/uL (0.04-0.35); Eosinophils % (A) 2.3 %; HCT 43.2 % (37.2-46.3); HGB 14.5 g/dL (12.0-15.0); Lymphocytes # (A) 3.63 10*3/uL (0.90-5.00); Lymphocytes % (A) 35.5 %; MCH 26.3 pg (27.0-32.0); MCHC 33.6 g/dL (32.0-37.0); MCV 78.4 fL (80.0-97.0); Monocytes # (A) 0.79 10*3/uL (0.20-1.00); Monocytes % (A) 7.7 %; Neutrophils # (A) 5.49 10*3/uL (1.80-7.70); Neutrophils % (A) 53.7 %; Platelet Count 291 10*3/uL (140-440); RBC 5.51 10*6/uL (4.10-5.20); RDW 13.6 % (11.5-14.5); WBC 10.22 10*3/uL (4.50-10.00)
[2025-03-27 12:32] LABS: ALT 51 U/L (4-34); AST 34 U/L (14-36); African American GFR (CKD) >90 (>60 ml/min/1.73 sqM); Albumin 4.3 g/dL (3.5-5.0); Alkaline Phosphatase 97 U/L (38-126); Anion Gap 12 mmol/L; Blood Urea Nitrogen 14 mg/dL (7-17); Calcium 9.9 mg/dL (8.4-10.2); Carbon Dioxide 26 mmol/L (22-30); Chloride 100 mmol/L (98-107); Glucose 97 mg/dL (74-99); Non-African American GFR(CKD) >90 (>60 ml/min/1.73 sqM); Potassium 4.1 mmol/L (3.5-5.1); Sodium 138 mmol/L (137-145); Total Bilirubin 1.8 mg/dL (0.2-1.3); Total Protein 7.6 g/dL (6.3-8.2)
[2025-03-27 18:26] LABS: Chol/HDL Ratio 5.48 Ratio
--- NOTE | 2025-03-27 21:12 | CONS ---
CONSULTATION CHIEF COMPLAINT: Depression. HISTORY OF PRESENT ILLNESS: This is another admission for this 24-year-old female who has a history of depression. Apparently, she had been seen and treated by [facility]. She then went to the facility here in town where, for some reason, [facility] would not refill her meds. They told her, "go to your family doctor." She made an appointment to come into my office, but was in for several days whereby she ran out of her medications and started having difficulty and presented to the emergency room and was admitted to the psych unit. REVIEW OF SYSTEMS: She feels fine. She has no headaches, chest pain, shortness of breath, abdominal pain, vomiting, diarrhea, renal complaints, etc. Past Medical History, Family History, Personal and Social Histories reveal that she has been on: 1. Propranolol 10 mg t.i.d. 2. Hydroxyzine 100 mg h.s. as well as 50 mg t.i.d. p.r.n. 3. Qelbree 100 mg once a day. 4. Fluoxetine 40 mg 2 a day. 5. Mirtazapine 15 mg h.s. 6. Omeprazole 40 mg once a day. Remainder of her history is unremarkable. PHYSICAL EXAMINATION: VITAL SIGNS: Normal. HEAD, EARS, EYES, NOSE, MOUTH, AND THROAT: Normal. CHEST: Clear. CARDIAC: Normal. ABDOMEN: Protuberant, soft. IMPRESSION: Major depression. RECOMMENDATION: None. Thank you respectfully. MMKASSIDYL / JIGAR: [id number] /
[2025-03-27] MEDS: MIRTAZAPINE 15 MG TAB PO SCH (21:23)
[2025-03-27] MEDS: hydrOXYzine pamoate 25 MG CAP PO SCH (21:23)
[2025-03-27] MEDS: PRAMIPEXOLE 0.25 MG TAB PO SCH (21:24)
[2025-03-27] MEDS ORDERED: MIRTAZAPINE 15 MG TAB PO PRN (22:13)
[2025-03-27] MEDS: MIRTAZAPINE 15 MG TAB PO PRN (22:45)
--- NOTE | 2025-03-28 10:31 | P.PN ---
Progress Note - Text Progress Note Date: 03/28/25 Interval History: Patient was seen today for psychiatric follow up. she was laying in her bed, jaspreet murray that she had a difficult time sleeping last night due to her cannabinoid induced hyperemesis which she has had in the past. Claims that she is still feeling nauseous was reminded that she does have Zofran as needed. Anxiety is still having some anxiety still having depression. We spoke about increasing her Prozac which she is okay with. States that she has been trying to eat however difficult to keep it down, has only been going to minimal groups. No endorsing any other issues or medications. He is also endorsing some restlessness at nighttime was agreeable to try Requip for tonight. Continues to state that she is having suicidal thoughts no specific plan. Denies any homicidal ideation. Denies any auditory or visual hallucinations. MENTAL STATUS EXAM: General Appearance: Patient appears to be overweight, several tattoos, stated age is alert, directable, and attempts to cooperate. Patient appears to have fair hygiene and grooming has blond dyed hair Behavior: Patient is seated without any agitated behavior. She is intermittently upset. Appears anxious, improving Speech: Patient's speech is fluent and nonpressured. [place], improving mildly Mood/Affect: Patient reports their mood is depressed and anxious, improving mildly, affect is congruent Suicidality/Homicidality: Patient denies having any homicidal ideation intent or plan. She reports suicidal ideations with no specific plan Perceptions: Patient denies any visual hallucinations and denies any auditory hallucinations Though content/process: There is no evidence of any delusional thought content and thought process is linear and goal-directed. Focused on her symptoms Memory and concentration: AOX3, grossly intact for the purposes of this session Judgment and insight: Poor, improving mildly IMPRESSIONS: Major depressive disorder, recurrent, severe suicidal ideations Generalized anxiety disorder Cannabis use disorder Nicotine dependence Cluster B traits PLAN: -Patient is admitted under voluntary status to [facility]HU for stabilization of psychiatric symptoms and safety. Patient has signed adult voluntary form and medication consent and is placed in patient's chart. -Medications : Remeron 15 mg at bedtime for insomnia/mood/appetite, increase Prozac 40 milligrams daily for depression/anxiety, propranolol 20 mg daily for anxiety, increase Vistaril 100 mg at bedtime for insomnia, with as needed for anxiety, change Mirapex to requip at 0.5 mg at bedtime for RLS, melatonin 10 mg at bedtime for insomnia -Hydroxyzine and ativan PRN for agitation/aggression -NRT -nicotine patch -SW on board for discharge planning. Encourage patient to participate in groups to work on coping skills.
[2025-03-28] MEDS: ONDANSETRON ODT 8 MG TAB.RAPDIS PO PRN (19:51)
[2025-03-28] MEDS: hydrOXYzine pamoate 25 MG CAP PO SCH (21:14)
[2025-03-28] MEDS: MIRTAZAPINE 15 MG TAB PO SCH (21:15)
[2025-03-29] MEDS: FLUoxetine HCL 20 MG CAP PO SCH (09:52)
--- NOTE | 2025-03-29 12:13 | P.PN ---
Progress Note - Text Progress Note Date: 03/29/25 Interval History: Patient was seen today for psychiatric follow up. she was laying in her bed. She claims that she is still dealing with nausea from her cannabinoid induced hyperemesis. We spoke about trying Reglan as needed which she is okay to try. States that she has been having difficulty tolerating the food. States that she continues to feel anxious depressed. She was upset with keno writer / runner today for changing her medications. Claims that she only wanted "my medications filled". We spoke about the criteria that she is admitted under and why she originally came to the hospital for suicidal thoughts. Has been mainly keeping herself on the unit. She denied any restlessness last night however did get up a few times for nausea or vomiting. She denies any suicidal thoughts no specific plan. Denies any homicidal ideation. Denies any auditory or visual hallucinations. MENTAL STATUS EXAM: General Appearance: Patient appears to be overweight, several tattoos, stated age is alert, directable, and attempts to cooperate. Patient appears to have fair hygiene and grooming has blond dyed hair Behavior: Patient is seated without any agitated behavior. She is intermittently upset. Appears anxious, she was more demanding today irritable with keno writer / runner. Speech: Patient's speech is fluent and nonpressured. [place], improving mildly Mood/Affect: Patient reports their mood is depressed and anxious, improving mildly, affect is congruent Suicidality/Homicidality: Patient denies having any homicidal ideation intent or plan. Denies any suicidal ideations with no specific plan Perceptions: Patient denies any visual hallucinations and denies any auditory hallucinations Though content/process: There is no evidence of any delusional thought content and thought process is linear and goal-directed. Focused on her symptoms and demanding today Memory and concentration: AOX3, grossly intact for the purposes of this session Judgment and insight: Poor, improving mildly IMPRESSIONS: Major depressive disorder, recurrent, severe suicidal ideations Generalized anxiety disorder Cannabis use disorder Nicotine dependence Cluster B traits PLAN: -Patient is admitted under voluntary status to [facility]HU for stabilization of psychiatric symptoms and safety. Patient has signed adult voluntary form and medication consent and is placed in patient's chart. -Medications : Remeron 15 mg at bedtime for insomnia/mood/appetite, added melatonin 10 mg qhs for sleep. Prozac 40 milligrams daily for depression/anxiety, increase propranolol 20 mg bid for anxiety, Vistaril 100 mg at bedtime for insomnia, with as needed for anxiety, requip at 0.5 mg at bedtime for RLS, -added reglan prn for nausea -Hydroxyzine and ativan PRN for agitation/aggression -NRT -nicotine patch -SW on board for discharge planning. Encourage patient to participate in groups to work on coping skills. hopeful for discharge early next week if patient is improving.
[2025-03-29] MEDS: MELATONIN 5 MG TABLET PO SCH (21:11)
[2025-03-29] MEDS: PROPRANOLOL 20 MG TAB PO SCH (21:11)
--- NOTE | 2025-03-30 21:11 | P.PN ---
Progress Note - Text Progress Note Date: 03/30/25 Interval History: Patient was seen today for psychiatric follow up. She was found isolating to her room, laying in bed in the dark with door closed. She claims she is doing well but becomes frustrated and tearful when discussing there is no plan to discharge her today and she will be staying the weekend. She claims she only came to the hospital for a "refill" after having been without her medications for a month. Her insight into the reason for the admission (suicidal thoughts) is poor. Has b een mainly keeping herself on the unit. She has not attended groups today and was encouraged to attend to groups and engage in treatment. She denies any suicidal thoughts no specific plan. Denies any homicidal ideation. Denies any auditory or visual hallucinations. She declines an antipsychotic such as Abilify. We discussed a mood stabilizer however because she is sexually active and not on any contraceptives, mood stabilizers will be deferred due to the risk of malformations, etc. MENTAL STATUS EXAM: General Appearance: Patient appears to be obese, several tattoos, stated age, fair hygiene and grooming Behavior: Patient is laying in bed, isolating to her room, tearful and frustrated on finding out she won't be discharged today, later observed crying on the phone Speech: Patient's speech is fluent and non-pressured. Mood/Affect: Patient reports their mood is "fine", affect is labile/tearful Suicidality/Homicidality: Patient denies having any homicidal ideation intent or plan. Denies any suicidal ideations with no specific plan Perceptions: Patient denies any visual hallucinations and denies any auditory hallucinations Though content/process: There is no evidence of any delusional thought content and thought process is linear. Memory and concentration: AOX3, grossly intact for the purposes of this session Judgment and insight: Poor, improving mildly IMPRESSIONS: Major depressive disorder, recurrent, severe suicidal ideations Generalized anxiety disorder Cannabis use disorder Nicotine dependence Cluster B traits PLAN: -Patient is admitted under voluntary status to MHU for stabilization of psychiatric symptoms and safety. Patient has signed adult voluntary form and medication consent and is placed in patient's chart. -Medications: Continue Remeron 15 mg at bedtime for insomnia/mood/appetite, melatonin 10 mg qhs for sleep, Prozac 40 milligrams daily for depression/anxiety, propranolol 20 mg bid for anxiety, Vistaril 100 mg at bedtime for insomnia, with as needed for anxiety, requip at 0.5 mg at bedtime for RLS. Consider mood stabilizing antipsychotic such as Seroquel. She declines Abilify. -added reglan prn for nausea -Hydroxyzine and ativan PRN for agitation/aggression -NRT -nicotine patch -SW on board for discharge planning. Encourage patient to participate in groups to work on coping skills. Hopeful for discharge early next week if patient is improving.
[2025-03-31] MEDS: METOCLOPRAMIDE 10 MG TAB PO PRN (07:49)
--- NOTE | 2025-03-31 15:37 | P.PN ---
Subjective Progress Note Date: 03/31/25 Principal diagnosis: Major depression recurrent severe Patient was seen today for psychiatric follow up. She was found isolating to her room, at 3:30 in the afternoon laying in bed in the dark with door closed. She was bothering whether she could get back on the amount of Prozac that worked in the past. She says that was the main reason she came in if she got her medication and she wants to be back on it and she used to take 80 mg of Prozac. She said this 60 helped some but it was not till she got to 80 that she felt happy. Has been mainly keeping herself on the unit. She has not attended groups today and was encouraged to attend to groups and engage in treatment. She denies any suicidal thoughts no specific plan. Denies any homicidal ideation. Denies any auditory or visual hallucinations. She declines an antipsychotic such as Abilify. We discussed a mood stabilizer however because she is sexually active and not on any contraceptives, mood stabilizers will be deferred due to the risk of malformations, etc. MENTAL STATUS EXAM: She was cooperative good eye contact pleasant serious minimal self-care General Appearance: Patient appears to be obese, several tattoos, stated age, fair hygiene and grooming Behavior: Patient is laying in bed, isolating to her room, tearful and frustrated on finding out she won't be discharged today, later observed crying on the phone Speech: Patient's speech is fluent and non-pressured. Mood/Affect: Patient reports their mood is "fine", affect is labile/tearful Suicidality/Homicidality: Patient denies having any homicidal ideation intent or plan. Denies any suicidal ideations with no specific plan Perceptions: Patient denies any visual hallucinations and denies any auditory hallucinations Though content/process: There is no evidence of any delusional thought content and thought process is linear. Memory and concentration: AOX3, grossly intact for the purposes of this session Judgment and insight: Poor, improving mildly IMPRESSIONS: Major depressive disorder, recurrent, severe suicidal ideations Generalized anxiety disorder Cannabis use disorder Nicotine dependence Cluster B traits PLAN: Continue current medication except increase Prozac from 40-60 if she does well at that we can increase it again to the dose that worked for her before. I did discuss at great length what else she needs to do besides take medicine in regards to healthy living in general. -Patient is admitted under voluntary status to MHU for stabilization of psychiatric symptoms and safety. Patient has signed adult voluntary form and medication consent and is placed in patient's chart. -Medications: Continue Remeron 15 mg at bedtime for insomnia/mood/appetite, melatonin 10 mg qhs for sleep, Prozac 40 milligrams daily for depression/anxiety, propranolol 20 mg bid for anxiety, Vistaril 100 mg at bedtime for insomnia, with as needed for anxiety, requip at 0.5 mg at bedtime for RLS. Consider mood stabilizing antipsychotic such as Seroquel. She declines Abilify. -added reglan prn for nausea -Hydroxyzine and ativan PRN for agitation/aggression -NRT -nicotine patch -SW on board for discharge planning. Encourage patient to participate in groups to work on coping skills. Hopeful for discharge early next week if patient is improving. Objective - Vital Signs Vital signs: Vital Signs Temp 98.3 F 03/30/25 21:00 Pulse 76 03/31/25 09:06 Resp 18 03/31/25 09:06 BP 115/77 03/31/25 09:06 Pulse Ox 97 03/31/25 09:06 FiO2 - Labs CBC & Chem 7: 03/27/25 11:36 03/27/25 11:36
[2025-04-01] MEDS: FLUoxetine HCL 20 MG CAP PO SCH (08:34)
--- NOTE | 2025-04-01 08:40 | P.PN ---
Subjective Progress Note Date: 04/01/25 Principal diagnosis: Major depression recurrent severe Patient was seen today for psychiatric follow up. . She was bothering whether she could get back on the amount of Prozac that worked in the past. She says that was the main reason she came in if she got her medication and she wants to be back on it and she used to take 80 mg of Prozac. She said this 60 helped some but it was not till she got to 80 that she felt happy. Has been mainly keeping herself on the unit. She was encouraged to attend to groups and engage in treatment. She denies any suicidal thoughts no specific plan. Denies any homicidal ideation. Denies any auditory or visual hallucinations. She declines an antipsychotic such as Abilify. We discussed a mood stabilizer however because she is sexually active and not on any contraceptives, mood stabilizers will be deferred due to the risk of malformations, etc. She has been staying out of her room more she says she is sleeping well with the mirtazapine and is not too hungry or too lethargic in the morning. MENTAL STATUS EXAM: She was cooperative good eye contact pleasant serious minimal self-care General Appearance: Patient appears to be obese, several tattoos, stated age, fair hygiene and grooming Behavior: Patient is laying in bed, isolating to her room, tearful and frustrated on finding out she won't be discharged today, later observed crying on the phone Speech: Patient's speech is fluent and non-pressured. Mood/Affect: Patient reports their mood is "fine", affect is labile/tearful Suicidality/Homicidality: Patient denies having any homicidal ideation intent or plan. Denies any suicidal ideations with no specific plan Perceptions: Patient denies any visual hallucinations and denies any auditory hallucinations Though content/process: There is no evidence of any delusional thought content and thought process is linear. Memory and concentration: AOX3, grossly intact for the purposes of this session Judgment and insight: Poor, improving mildly IMPRESSIONS: Major depressive disorder, recurrent, severe suicidal ideations Generalized anxiety disorder Cannabis use disorder Nicotine dependence Cluster B traits PLAN: Continue current medication e of Prozac at 60. I also think we should increase the mirtazapine to 30 she is tolerating it and it is complementary to the Prozac allowing us to get by with a lower dose of so that she does not develop anhedonia from the Prozac. She also wants something that is nonstimulant that helps with ADHD. In the past she took Strattera but it made her shake and sweat. Mirtazapine works on norepinephrine but does not have that side effect. -Patient is admitted under voluntary status to MHU for stabilization of psychiatric symptoms and safety. Patient has signed adult voluntary form and medication consent and is placed in patient's chart. -Medications: Increase Remeron to 30 at bedtime for insomnia/mood/appetite, melatonin 10 mg qhs for sleep, continue Prozac at 60 milligrams daily for depression/anxiety, propranolol 20 mg bid for anxiety, Vistaril 100 mg at bedtime for insomnia, with as needed for anxiety, requip at 0.5 mg at bedtime for RLS. Consider mood stabilizing antipsychotic such as Seroquel. She declines Abilify. -added reglan prn for nausea -Hydroxyzine and ativan PRN for agitation/aggression -NRT -nicotine patch -SW on board for discharge planning. Encourage patient to participate in groups to work on coping skills. Hopeful for discharge early next week if patient is improving. Objective - Vital Signs Vital signs: Vital Signs Temp 97.8 F 03/31/25 21:00 Pulse 79 03/31/25 21:00 Resp 18 03/31/25 21:00 BP 123/76 03/31/25 21:00 Pulse Ox 99 03/31/25 21:00 FiO2 - Labs CBC & Chem 7: 03/27/25 11:36 03/27/25 11:36
[2025-04-01] MEDS: MIRTAZAPINE 15 MG TAB PO SCH (20:40)
--- NOTE | 2025-04-02 11:22 | P.PN ---
Progress Note - Text Progress Note Date: 04/02/25 Chief complaint: "Major depressive disorder" Interval History: Patient was seen wandering the hallways and was directable and agreeable to speak with com writer in the office. I met the patient for the first time prior to meeting the patient notes were reviewed. The patient expressed that her dep ression was 3/10 over the last couple of days with 10 being worse. She notes that her anxiety is 5/10 with 10 being worse over the last several days. She notes that she is focused on getting back to rehab and being close to her child. She denies any suicidal or homicidal ideations. She was able to voice a safety plan including 911, 988 and where the ER is. She notes that she slept between 8 to 10 hours and feels rested. She notes that her anxiety is "fine". She denies any problems with appetite. She feels that her concentration is fair due to her ADHD and not being on medications at this time. Mental Status Exam: General Appearance: Patient appears to be stated age is alert, directable, and cooperative. Behavior: Patient is calmly seated without any agitated behavior. Patient ex tremely tearful and emotional when we held off the discharge till tomorrow. Speech: Patient's speech is fluent and nonpressured. Mood/Affect: Mood is improving mildly, affect is congruent and constricted. Suicidality/Homicidality: Patient denies having any suicidal or homicidal ideation intent or plan. Perceptions: Patient denies any visual hallucinations and denies any auditory hallucinations Though content/process: There is no evidence of any delusional thought content and thought process is linear and goal-directed. Memory and concentration: AOX3, grossly intact for the purposes of this session Judgment and insight: Improving mildly Diagnosis Major depressive disorder, recurrent, severe suicidal ideations Generalized anxiety disorder Cannabis use disorder Nicotine dependence Cluster B traits Assessment: The patient became very emotional when we discussed staying another day but felt at this time we will complete stabilization at this moment and the way the patient responded appears that the mood is not completely under control. Plan: -Patient is admitted under voluntary status to MHU for stabilization of psychiatric symptoms and safety. Patient has signed adult voluntary form and medication consent and is placed in patient's chart. -Medications: Continue Prozac 60 mg take 1 capsule by mouth once daily for depression/anxiety Mirtazapine 30 mg take 1 tablet by mouth at bedtime for depression/anxiety/inso Propranolol 20 mg twice daily for anxiety Vistaril 100 mg take 1 tablet by mouth at bedtime for insomnia Requip 0.5 mg take 1 tablet by mouth at bedtime for restless legs -added reglan prn for nausea -Hydroxyzine and ativan PRN for agitation/aggression -NRT -nicotine patch -SW on board for discharge planning. Encourage patient to participate in groups to work on coping skills. Hopeful for discharge early next week if patient is improving.
--- NOTE | 2025-04-03 07:38 | P.DS ---
Providers Date of admission: 03/26/25 22:27 Admission HPI: Admission note was completed by Dr. Blackwood "HPI: Patient presented to the hospital yesterday and was seen by EPS and as per note "Cl presents awake sitting in bed A/O x4 brought in by [facility] export administrator due to depression w SI w plans. Cl states " I have not had my medications for awhile due to not being able to get them at [facility] because I have IOP at [facility], and have to get my medication from my primary care doctor. I haven't been able to get into see him." Cl goes on to state " Over the past couple weeks my depression has gotten worse, I am anxious, overwhelmed, and frustrated by personal and family issues. I have no motivation, can;t get out of bed, don't have any energy to even shower, I just want to sleep. I am worried about relapse and have been having thoughts of contacting my sisters exboyfriend for heroin so I can overdose and just . I have never done heroin, but I know people can OD on it. It's either that or jump off the overpass by my Mom's." Cl rep orts ongoing familial stress related to her child, involving her mother. " I feel like everyone is out to get me or make things hard for me." Cl presents flat affect, unkempt, anxious, loss of interest, low motivation, low energy, poor self care, trouble taking care of her children, ovewhelmed, helpless, hopeless. Cl also disclosed self harm hx via cutting / burning last episode 09/2024. Judgement/insight/impulse control: poor ADLS: fair sleep/bill: poor/ decreased. " Patient was seen today laying in bed agreeable to speak to lyric writer. Claims that she has been out of her medications for quite some time. Claims that she has been having an increase in stressors in her life, claims that she was kicked out of [facility] and had to come back to the hospital. Claims that she is not allowed to stay with her mother. Claims that she cannot get her medications refilled as she was previously at [facility], claims that she was close from [facility]. Claims that she has been off her medications for over a month. Claims that she has been endorsing depression has been fairly irritable and anxious. He was also having suicidal thoughts and no specific plan. Claims that she spoke with her therapist about this and her therapist told her to come to the hospital. Claims her sleeping and poor appetite has been on and off. Denies any homicidal ideations. At this time patient denies any auditory or visual hallucinations. Patient denies any flight of ideas racing thoughts and increased in goal directed behavior. Patient claims that she uses cannabis recreationally, also endorses using cigarettes denies any recreational drug use. Urine drug screen was positive for THC." Hospital course: Upon admission to the unit patient was directable and agreeable to commence treatment and signed adult voluntary form. Patient got along well with other patients on the unit and followed unit protocol. Patient was compliant with the medications and denied any side effects throughout hospital course. Patient was started on Prozac 60 mg, Mirtazapine 30 mg, Propranolol 20 mg twice daily, Requip 0.5 mg once daily, and Hydroxyzine 100 mg at bedtime.. Patient spoke of her stressors and engaged in therapy both group and individual. Patient was also seen by medical team for history and physical exam. No pathologies were found at that time. Throughout the course of the hospitalization patient gradually improved with regards to mood, anxiety, sleep and returned back to their baseline level of functioning became more future oriented with improved insight and judgment. On the day of discharge patient denied any suicidal or homicidal ideations intent or plan denied any auditory or visual hallucinations. Patient endorsed wanting to live for their health and family. The patient denied any access to guns or weapons. Patient denied any paranoia and did not endorse any delusions. Patient does have a significant history of substance abuse and was counseled on abstaining from all substances including alcohol and marijuana. Patient was offered and accepted returning to [facility] inpatient substance-abuse rehab. Patient was also counseled on the medications and need for regular compliance and was encouraged to follow-up with their outpatient appointment for mental health and also for primary care. Prior to discharge a family meeting will be arranged by manager social work to answer any questions and ensure safety upon discharge incuding making sure that guns/weapons are either removed from the home or locked away. Day of discharge patient denied any suicidal or homicidal ideations. She voiced a safety plan with 911 and 988. She rated her depression 2/10 and her anxiety 3/10 with 10 being worst. She notes that she slept well with no interruptions. She felt that her energy was good. She does note that her appetite is increased in the evening because of the Remeron. Due to her ADHD she notes that her concentration remains fair. Mental status exam: General Appearance: Patient appears to be her stated age is alert, pleasant, and cooperative. Patient is in no acute distress and has improved hygiene and grooming Behavior: Patient is calmly seated without any agitated behavior. Speech: Patient's speech is fluent and nonpressured. Mood/Affect: Patient reports their mood is "better good", affect is congruent and euthymic. Suicidality/Homicidality: Patient denies having any suicidal or homicidal ideation intent or plan. Perceptions: Patient denies any auditory or visual hallucinations. Though content/process: There is no evidence of any delusional thought content and thought process is linear and goal-directed. More future oriented Memory and concentration: AOX3, grossly intact for the purposes of this session. Can spell "WORLD" backwards correctly. Judgment and insight: Chronically poor, however has improved with guarded prognosis Diagnosis Major depressive disorder, recurrent, severe suicidal ideations Generalized anxiety disorder Cannabis use disorder Nicotine dependence Cluster B traits Plan: -Continue with discharge today as patient has improved and stabilized psychiatrically and is not currently an imminent threat to themself and/or others. Patient will remain at chronically elevated risk for harm to self and/or others due to their impulsivity and substance abuse. -Continue medications: Prozac 60 mg take 1 capsule by mouth once daily for depression/anxiety Mirtazapine 30 mg take 1 tablet by mouth at bedtime for depression/anxiety/inso Propranolol 20 mg twice daily for anxiety Vistaril 100 mg take 1 tablet by mouth at bedtime for insomnia Requip 0.5 mg take 1 tablet by mouth at bedtime for restless legs -Patient was counseled on the need for medication compliance and appropriate follow-up at mental health and also primary care for medical issues. Patient verbalized understanding and agreed. -Social work to help coordinate patients discharge today arrange for and conduct family meeting to ensure safety upon discharge and answer any questions/concerns. also to ensure safe home environment that guns/weapons are either removed from the home or locked away. Social work also to arrange for patients follow up appointments with [facility] for psychiatric care along with follow up with primary care provider. -Patient counseled on abstaining from recreational drugs and marijuana and alcohol. Was informed/educated on the adverse effects on their physical and mental health. Patient verbally agreed and understood. -Patient was instructed to return to the hospital or seek immediate medical care if their psychiatric or medical symptoms do worsen or reoccur. Expected date of discharge: 04/03/25 Attending physician: Lázaro Blackwood MD Consults: 03/26/25 22:34 Consult Physician Routine Consulting Provider: Lonny Cavanaugh Consult Reason/Comments: H&P and medical Do you want consulting provider notified?: Yes, Notify in am Primary care physician: Lonny Cavanaugh Patient Condition at Discharge: Stable Plan - Discharge Summary Discharge Rx Participant: Yes New Discharge Prescriptions: No Action hydrOXYzine HCL [Atarax] 25 mg PO Q8HR PRN 30 Days #60 tab PRN Reason: Anxiety Folic Acid 1 mg PO DAILY 30 Days #30 tab Nicotine 21Mg/24Hr Patch [Habitrol] 1 patch TRANSDERM DAILY 30 Days #30 patch Pramipexole [Mirapex] 0.5 mg PO HS 30 Days #30 tab Mirtazapine [Remeron] 7.5 mg PO HS 30 Days #15 tab hydrOXYzine pamoate [Vistaril] 25 mg PO HS cap Thiamine [Vitamin B-1] 100 mg PO DAILY 30 Days #30 tab Multivitamins, Thera [Multivitamin (formulary)] 1 tab PO DAILY Omeprazole Magnesium [PriLOSEC OTC] 20 mg PO BID FLUoxetine HCL [PROzac] 80 mg PO DAILY Propranolol [Inderal] 10 mg PO TID 30 Days #90 tab Melatonin 10 mg PO HS 30 Days #60 tab Pantoprazole [Protonix] 40 mg PO BID 30 Days #60 tab Ondansetron Odt [Zofran ODT] 8 mg PO Q8HR PRN 15 Days #15 tab PRN Reason: Nausea Discharge Medication List FLUoxetine HCL [PROzac] 80 mg PO DAILY 01/16/25 [History] Folic Acid 1 mg PO DAILY 30 Days #30 tab 01/23/25 [Rx] Melatonin 10 mg PO HS 30 Days #60 tab 01/23/25 [Rx] Mirtazapine [Remeron] 7.5 mg PO HS 30 Days #15 tab 01/23/25 [Rx] Nicotine 21Mg/24Hr Patch [Habitrol] 1 patch TRANSDERM DAILY 30 Days #30 patch 01/23/25 [Rx] Ondansetron Odt [Zofran ODT] 8 mg PO Q8HR PRN 15 Days #15 tab 01/23/25 [Rx] Pantoprazole [Protonix] 40 mg PO BID 30 Days #60 tab 01/23/25 [Rx] Pramipexole [Mirapex] 0.5 mg PO HS 30 Days #30 tab 01/23/25 [Rx] Propranolol [Inderal] 10 mg PO TID 30 Days #90 tab 01/23/25 [Rx] Thiamine [Vitamin B-1] 100 mg PO DAILY 30 Days #30 tab 01/23/25 [Rx] hydrOXYzine HCL [Atarax] 25 mg PO Q8HR PRN 30 Days #60 tab 01/23/25 [Rx] hydrOXYzine pamoate [Vistaril] 25 mg PO HS cap 01/23/25 [Rx] Multivitamins, Thera [Multivitamin (formulary)] 1 tab PO DAILY 03/26/25 [History] Omeprazole Magnesium [PriLOSEC OTC] 20 mg PO BID 03/26/25 [History] Follow up Appointment(s)/Referral(s): Lonny Cavanaugh MD [Primary Care Provider] - 1-2 days Activity/Diet/Wound Care/Special Instructions: Avoid the use of street drugs and alcohol. Take all medications as prescribed. When you are in need of refills on your medications, please contact your medical provider and/or outpatient psychiatrist/provider to have this done. Please go to your scheduled outpatient appointment for aftercare treatment. If symptoms return or become worse, call the crisis line at and/or go to the nearest emergency room for evaluation. National Suicide Hotline [address] [facility] confidentiality statement: "The information contained in this communication, including attachments, is confidential, may be privileged, and is intended only for the use of the named recipient(s). Unauthorized use, disclosure, forwarding or copying is strictly prohibited and may be unlawful. If you have received this communication in error, please notify me IMMEDIATELY at the phone number or pager listed above.
[2025-04-03 09:42] VITALS: BP 137/69; PULSE 82; RESP 16; TEMP 97.4
== END 2025-04-03 10:45 | disposition home or self-care (01) | DRG 751 ==
LOC: EC 11:59 → 3MHU 22:27
PROVIDERS: ADMIT Psychiatry & Neurology Psychiatry; ATTEND Psychiatry & Neurology Psychiatry
DX: F33.2 Major depressive disorder, recurrent severe without psychotic features (principal); F41.1 Generalized anxiety disorder; F43.10 Post-traumatic stress disorder, unspecified; F12.10 Cannabis abuse, uncomplicated; Z71.51 Drug abuse counseling and surveillance of drug abuser; F90.9 Attention-deficit hyperactivity disorder, unspecified type; F17.200 Nicotine dependence, unspecified, uncomplicated; G25.81 Restless legs syndrome; F19.10 Other psychoactive substance abuse, uncomplicated; G47.00 Insomnia, unspecified; R45.851 Suicidal ideations; Z56.0 Unemployment, unspecified; Z59.00 Homelessness unspecified; Z79.899 Other long term (current) drug therapy; Z91.148 Patient's other noncompliance with medication regimen for other reason; Z91.51 Personal history of suicidal behavior; Z71.89 Other specified counseling; F60.89 Other specific personality disorders; Z11.52 Encounter for screening for COVID-19; Z28.21 Immunization not carried out because of patient refusal; K21.9 Gastro-esophageal reflux disease without esophagitis
CPT/HCPCS: 80053; 80061; 80306; 81001; 81025; 82075; 83036; 84443; 85025; 87635; 99285